=== PATIENT | female | born 2000 | race African-American/Black ===

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

== ENCOUNTER 2022-11-01 00:33 | Emergency (ER) | payer MEDICAID, SELFPAY ==
[2022-11-01 00:38] VITALS: BP 115/88; PULSE 97; RESP 20; TEMP 37.1; O2SAT 100; BMI 21.2
--- NOTE | 2022-11-01 00:51 | EDS_ITS ---
HPI HPI - Psych History of Present Illness Chief Complaint: Mental Health Narrative Narrative: Patient presents with suicidal ideations. She feels like she does not want to live although she does not have a plan at this time. She tells me there is no specific reason why this is happening she does not know any stressors in her life, she has had similar symptoms in the past and a few years ago she was admitted psychiatrically for similar symptoms. She has not done anything to harm herself at this time [facility] Medical History (Updated 11/01/22 @ 00:[address] Chung Shanks MD) Alcohol abuse Anxiety Asthma Depression Substance abuse Home Medications NK 05/21/19 [History Last Taken Unknown] Allergy/AdvReac Type Severity Reaction Status Date / Time No Known Allergies Allergy Verified 11/01/22 00:38 Social History Smoking Status: Current every day smoker tobacco type: e-cigarettes ROS ROS ED ROS Narrative Past medical history: Reviewed Medications: Reviewed Social history: Noncontributory Review of systems: General: No fever Eyes: No visual changes ENT: No upper airway congestion, normal voice Neck: No neck pain Cardiovascular: No chest pain Respiratory: No shortness of breath or cough Gastrointestinal: No abdominal pain, nausea vomiting or diarrhea Genitourinary: No dysuria Musculoskeletal: Denies myalgias no difficulty with ambulation Skin: No rash Neurological: No memory loss, confusion or any focal weakness Psych: As in HPI EXAM Physical Exam Narrative Exam Narrative: Physical exam General: She is tearful. She does not appear in any other distress Head: Normocephalic, Atraumatic Eyes: Conjunctiva not pale ENT: Moist mucous membranes Neck: Supple, Nontender, No lymphadenopathy Cardiovascular: Regular rate, Regular rhythm Respiratory: No distress, CTA bilaterally Abdomen: Soft, Nontender, Nondistended Back: Nontender, Normal Inspection. Negative for: CVA tenderness Extremities: Nontender, No edema Skin: Normal color, No rash Neurological: Alert, Normal Strength, Normal Sensation Psychological: Tearful, admits to being depressed and anxious and having suicidal ideations otherwise she is lucid and coherent and gives me a good history. No psychosis. Const Vital Signs: 11/01/22 00:38 Temperature 98.8 F Temperature Source Temporal Pulse Rate 97 Respiratory Rate 20 H Blood Pressure 115/88 H Blood Pressure Mean 97 Pulse Ox 100 Oxygen Delivery Method Room Air MDM MDM MDM Narrative Medical decision making narrative: Patient is actively suicidal. She will need psychiatric placement. I will medically clear her. Otherwise she will be evaluated by crisis for psychiatric admission. Discharge Plan Triage Chief Complaint: Mental Health ED Provider: Chung Shanks Dx/Rx/DC Orders Clinical Impression: Anxiety, Depression, Feeling suicidal Prescriptions: No Action NK Primary Care Provider: Sofía Sainz Referrals: Sofía Sainz MD [Primary Care Provider] - Disposition Disposition: Psychiatric Hospital or Unit
[2022-11-01 01:11] LABS: Absolute Lymphocyte Count 3.04 X10^3/uL (0.83-4.51); Absolute Neutrophil Count 8.1 X10^3/uL (2.0-7.7); Basophil# 0.12 X10^3/uL; Eosinophil# 0.46 X10^3/uL; Eosinophils% 3.7 % (0-5); Hematocrit 40.6 % (37-47); Hemoglobin 13.5 g/dL (12.0-15.0); Lymphocyte # 3.04 X10^3/ul (0.83-4.51); Lymphocyte % 24.2 % (19-41); Mean Corp Hgb Conc 33.3 g/dL (32-36); Mean Corpuscular Hgb 28.8 pg (27.0-32.0); Mean Corpuscular Volume 86.8 fL (81-99); Mean Platelet Vol. 9.4 fl (6.2-12.0); Monocyte% 6.4 % (0-10); NRBC Flagged by Analyzer 0 % (0-5); Neutrophil # 8.09 X10^3/uL (2.7-7.7); Neutrophil % 64.3 % (47-70); Platelet Count 316 K/mm3 (150-450); RBC Distribution Width CV 12.9 % (11.6-14.6); RBC Distribution Width SD 40.7 fl (35.1-43.9); Red Blood Count 4.68 M/mm3 (4.2-5.4); White Blood Count 12.6 K/mm3 (4.4-11.0)
[2022-11-01 01:34] VITALS: RESP 16
[2022-11-01 01:37] LABS: Internal QC Validated? YES +Cl - CLEAR BKGD; Pregnancy, Serum, hCG Quali. NEGATIVE Negative
[2022-11-01 01:44] LABS: Anion Gap 7 (5-15); BUN 8 mg/dL (7-18); BUN/Creat Ratio 10.8 RATIO (10-20); Calcium,Total 9.2 mg/dL (8.5-10.1); Chloride 105 mmol/L (98-107); Creatinine, Serum 0.74 mg/dL (0.55-1.02); EST Glomerular Filtration Rate 103 mL/min (>60); Est Glom Filt Rate - Afr Amer 125 mL/min (>60); Estimated Creatinine Clearance 102.97 ml/min; Glucose 86 mg/dL (74-106); Potassium 3.3 mmol/L (3.5-5.1); Sodium Level 137 mmol/L (136-145)
[2022-11-01 01:47] LABS: Alcohol, Blood (Medical)-Serum < 3.0 mg/dL
[2022-11-01 02:34] VITALS: RESP 14
[2022-11-01 03:00] VITALS: RESP 16
[2022-11-01 04:59] LABS: Amphetamine Urine VISTA NEGATIVE (<1000 ng/mL); Barbiturate Urine VISTA NEGATIVE (< 200 ng/mL); Benzodiazepine Urine VISTA NEGATIVE (< 200 ng/mL); Cocaine Urine VISTA POSITIVE (< 300 ng/mL); Ecstacy Urine VISTA NEGATIVE (< 500 ng/mL); Methadone Urine VISTA NEGATIVE (< 300 ng/mL); PCP Urine VISTA NEGATIVE (< 25 ng/mL); THC Urine VISTA POSITIVE (< 50 ng/mL); Vista UDS pH Range 5
[2022-11-01 05:58] VITALS: BP 107/61; PULSE 71; RESP 18; O2SAT 99
--- NOTE | 2022-11-01 09:11 | ED.RN ---
rn at bedside to administer tylenol requested by patient for headache, pt states she no longer needs it.
[2022-11-01 10:16] VITALS: BP 97/55; PULSE 63; RESP 16; O2SAT 98
--- NOTE | 2022-11-01 11:06 | ED.RN ---
PATIENT INFORMED SHE HAS BEEN ACCEPTED AT [facility] AND WILL BE TRANSPORTED AROUND 1 PM. PT REQUESTING HER MOTHER BE INFORMED. NO FURTHER REQUESTS AT THIS TIME.
--- NOTE | 2022-11-01 11:12 | CM.ED ---
Social Work SW notified by crisis of accepting information to [facility] unit by Dr. Farris. Staff notified to call report and arrange transport. Pt's nurse notified patient. Ginny Aceves ANIMAL CARE GIVER, HAMMERER
--- NOTE | 2022-11-01 11:38 | ED.RN ---
PATIENTS MOTHER CALLED. NO ANSWER. MESSAGE LEFT ON ANSWERING MACHINE FOR AN UPDATE FOR [facility]. PTS MOTHER CYNTHIA CALLED BACK. CYNTHIA UPDATED ON PSYCHIATRIC FACILITY AND ETA FOR TRANSPORT. CYNTHIA INFORMED PATIENT STILL HAS PHONE IF SHE NEEDS TO GET A HOLD OF HER.
== END 2022-11-01 13:00 ==
PROVIDERS: Emergency Provider Emergency Medicine; Visit Provider Emergency Medicine
DX: R45.851 Suicidal ideations (principal); F17.290 Nicotine dependence, other tobacco product, uncomplicated
CPT/HCPCS: 36415; 80048; 80307; 82077; 84703; 85025; 87811; 99282

== ENCOUNTER 2024-11-10 00:43 | Emergency (ER) | payer SELFPAY ==
[2024-11-10 00:44] VITALS: BP 129/78; PULSE 110; RESP 18; TEMP 36.6; O2SAT 100; BMI 22.9
[2024-11-10] MEDS: DiphenhydrAMINE 50 MG/ML Syringe 25 MG IV (01:01)
[2024-11-10] MEDS: Famotidine 200 MG/20 ML MDV 20 MG in 0.9% Normal Saline (Pres. free 8 ML 300 MG IV (01:02)
--- OUTSIDE RECORDS SUMMARY | 2024-11-10 01:21 | XMS RPT_ITS | CCD ---
Author Organization [facility] FUND ACCOUNTING MANAGER [facility] Care Team Providers Care Retail Wireless Associate Name Role Phone Timothy Enciso MD Primary Care Provider [phone] FERNIE SAAB, DR TIMOTHY Yang Primary Care Physician [phone] NOEMI HUGHES Attending Unavailable TIMOTHY ENCISO Primary Care Unavailable NOEMI HUGHES Referring Unavailable NOEMI HUGHES Attending Unavailable TIMOTHY ENCISO Primary Care Unavailable Chung Shanks Attending Unavailable Care Physician, No Primary Primary Care Unava ilable Unavailable Primary Care Provider UnavailRESHMA Higginbotham DO Attending Unavailable FERNIE SAAB, DR TIMOTHY Yang Primary Care Unavailmerrill BISHOP MD, GOLDIE Watkins Attending Unavail michael ENCISO MD, DR TIMOTHY Yang Primary Care Unavailmerrill BISHOP MD, GOLDIE Watkins Attending Unavail michael ENCISO MD, DR TIMOTHY Yang Primary Care Unavailmerrill e PHYSICIAN, NONE Primary Care Physician Unavailab le PHYSICIAN, NONE Primary Care Unavailable MARIA FERNANDA ISLAS DO Attending Unavailable BEVERLEY SALDAÑA, DR JEAN-PAUL Mejia Attending Unavailable PHYSICIAN, NONE Primary Care Unavailable Allergies Allergy Classification Reported Allergen(s) Allergy Type Date of Onset Reaction(s) Facility (5 sources) beta-Blocking agent; Translations: [BETA-BLOCKERS (BETA-ADRENERGIC BLOCKING AGTS)] Propensity to adverse reactions to drug 3 Contraindicati on-Medical Surgical [facility] Work Phone: (5 sources) Cat; Translations: [CATS] Propensity to adverse reactions 9 [facility] Work Phone: (5 sources) Dog; Translations: [DOGS] Propensity to adverse reactions 9 [facility] Work Phone: (5 sources) Grass pollen; Translations: [GRASS POLLEN] Propensity to adverse reactions 0 [facility] Work Phone: (5 sources) Mold Extract; Translations: [MOLD] Drug Allergy 0 [facility] Work Phone: (5 sources) Tree; Translations: [TREES] Propensity to adverse reactions 0 [facility] Work Phone: (4 sources) environmental [Other] Propensity to adverse reactions 9 [facility] Work Phone: (5 sources) Ragweed; Translations: [RAGWEED] Propensity to adverse reactions 0 [facility] Work Phone: (1 source) OTHER; Translations: [OTHER] Propensity to adverse reactions (disorder) 9 [facility] Repository Medications Current Medications Medication Drug Class(es) Dates Sig (Normalized) Sig (Original) albuterol MDI (90 mcg/inh) CFC free inhalation aerosol (6 sources) Start: 03-06-2024 take 2 puff(s) by inhalation every four hours as needed for wheezing albuterol MDI (90 mcg/inh) CFC free inhalation aerosol 2 puff(s), Inhalation, q4h, PRN as needed for wheezing, # 18 gram(s), 0 Refill(s) Start Date: 03/06/24 Status: Ordered Start: 04-17-2018 take 2 puff(s) by in halation every four hours as needed for wheezing albuterol MDI (90 mcg/inh) CFC free inhalation aerosol 2 puff(s), Inhalation, q4h, PRN for wheezing, # 1 EA, 0 Refill(s) Start Date: 04/17/18 Status: Ordered ARIPiprazole 5 mg oral tablet (9 sources) Atypical Antipsychotic Start: 01-30-2019 ARIPiprazole 5 mg oral tablet Dose : 5 mg = 1 tab(s), Oral, qDay, # 30 tab(s), 0 Refill(s) Start Date: 01/30/19 Status: Ordered Comment on above: Take 5 mg by mouth o nce daily. cetirizine hydrochloride 10 mg oral tablet (14 sources) Histamine-1 Receptor Antagonist Start: 09-08-2018 take 1 tablet by mouth once daily as needed cetirizine 10 mg oral tablet TAKE 1 TABLET BY MOUTH EVERY DAY NEEDED Start Date: 01/30/19 Status: Ordered Start: 12-25-[address] art Date: 12/25/16 Status: Ordered Comment on above: TAKE 1 TABLET BY ROMAN TH ONCE DAILY NEEDED. 12 hr guaiFENesin 600 mg extended release oral tablet (2 sources) Start: 03-06-2024 End: 03-13-2024 Mucinex 600 mg oral tablet, extended release Dose : 600 mg = 1 tab(s), Oral, q12h, X 7 day(s), # 14 tab(s), 0 Refill(s), 03/13/24 6:30:00 PM EST Start Date: 03/06/24 Stop Date: 03/13/24 Status: Ordered Start: 02-16-2023 End: 02-26-2023 guaiFENesin 400 mg oral tabl et Dose : 400 mg = 1 tab(s), Oral, q4h, PRN as needed for congestion, X 10 day(s), # 60 tab(s), 0 Refill(s), 02/26/23 2:06:00 PM EST Start Date: 02/16/23 Stop Date: 02/26/23 Status: Ordered hydrOXYzine pamoate 50 mg oral capsule (5 sources) Antihistamine Start: 01-30-2019 Vistaril 50 mg oral capsule Dose : 50 mg = 1 cap(s), Oral, QID, PRN as needed for anxiety, # 40 cap(s), 0 Refill(s) Start Date: 01/30/19 Status: Ordered metoclopramide 5 mg oral tablet (1 source) Dopamine-2 Receptor Antagonist Start: 02-16-2023 End: 02-23-2023 Reglan 5 mg oral tablet Dose : 5 mg = 1 tab(s), Oral, QID, X 7 day(s), # 28 tab(s), 0 Refill(s), 02/23/23 2:05:00 PM EST Start Date: 02/16/23 Stop Date: 11/15/23 Status: Ordered predniSONE 20 mg oral tablet (2 sources) Start: 03-06-2024 End: 03-09-2024 predniSONE 20 mg oral tablet Dose : 20 mg = 1 tab(s), Oral, BID, X 3 day(s), # 6 tab(s), 0 Refill(s), 03/09/24 6:39:00 PM EST Start Date: 03/06/24 Stop Date: 03/09/24 Status: Ordered Start: 12-24-2021 End: 12-29-2021 predniSONE 50 mg oral tablet Dose : 50 mg = 1 tab(s), Oral, qDayM, X 5 day(s), # 5 tab(s), 0 Refill(s), 12/29/21 0:00:00 EDT, Exacerbation of asthma Start Date: 12/24/21 Stop Date: 12/29/21 Status: Ordered traZODone hydrochloride 50 mg oral tablet (9 sources) Serotonin Reuptake Inhibitor Start: 01-30-2019 traZODone 50 mg oral tablet Dose : 50 mg = 1 tab(s), Oral, qHS, # 30 tab(s), 0 Refill(s) Start Date: 01/30/19 Status: Ordered Comment on above: TAKE 1 TABLET BY ORA L ROUTE 1 AT BEDTIME AT BEDTIME Completed/Discontinued Medications Medication Drug Class(es) Dates Sig (Normalized) Sig (Original) [id number] 200 actuat albuterol 0.09 mg/actuat metered dose inhaler (8 sources) beta2-Adrenergic Agonist Start: 04-10-2015 take 2 puff(s) by inhalation every four hours as needed albuterol HFA (VENTOLIN HFA) 90 mcg/actuation inhaler Inhale 2 Puffs as instructed every 4 hours as needed. 1 Inhaler 0 04/10/2015 Active Start: 11-12-2013 albuterol 2.5 mg /3 mL (0.083 %) nebulizer solution Use via nebulizer. One ampule nebulized every 4 hours as needed for cough, wheezing, chest tightness or shortness of breath 100 Vial 2 11/12/2013 Active Comment on above: Use via nebulizer. O ne ampule nebulized every 4 hours as needed for cough, wheezing, chest tightness or shortness of breath Inhale 2 Puffs as in structed every 4 hours as needed. etonogestrel 68 mg drug implant (4 sources) Progestin Start: 03-27-20 End: 03-26-20 etonogestrel (NEXPLANON) subdermal implant 68 mg Indications: Insertion of implantable subdermal contraceptive 1 Each by SUBDERMAL route as directed. 1 Each 0 03/27/2019 Active Comment on above: 1 Each by SUBDERMAL route as directed. 60 actuat fluticasone propionate 0.1 mg/actuat / salmeterol 0.05 mg/actuat dry powder inhaler (4 sources) Corticosteroid, beta2-Adrenergic Agonist Start: 04-18-19 19 take 1 puff(s) by mouth twice daily ADVAIR DISKUS 100-50 mcg/dose dsdv INHALE 1 PUFF INSTRUCTED TWICE DAILY. RINSE AND GARGLE MOUTH WITH WATER AFTER EACH USE. 1 Inhaler 0 04/18/2018 Active Comment on above: INHALE 1 PUFF INS TRUCTED TWICE DAILY. RINSE AND GARGLE MOUTH WITH WATER AFTER EACH USE. montelukast 10 mg oral tablet (4 sources) Leukotriene Receptor Antagonist Start: 08-16-19 take 1 tablet by mouth once daily at bedtime montelukast (SINGULAIR) 10 mg tablet TAKE 1 TABLET BY MOUTH EVERYDAY AT BEDTIME 30 tablet 1 08/15/2018 Active Comment on above: TAKE 1 TABLET BY ROMAN TH EVERYDAY AT BEDTIME polyethylene glycol 3350 81195 mg powder for oral solution (4 sources) Osmotic Laxative Start: 12-31-19 polyethylene glycol 3350 (MIRALAX) 17 gram/dose powder Take 17 g by mouth once daily. 1 Bottle 1 12/30/2016 Active Comment on above: Take 17 g by mouth o nce daily. Problems Active Problems Problem Classification Problem Date Documented Date Episodic/Chronic Allergic reactions (4 sources) Atopic dermatitis; Translations: [Other atopic dermatitis] Onset: 12-18-2009 12-18-2009 Chronic Anxiety disorders (5 sources) Generalized anxiety disorder; Translations: [Generalized anxiety disorder] Onset: 12-22-2021 12-22-2021 Chronic Asthma (5 sources) Allergic asthma; Translations: [Unspecified asthma, uncomplicated] Onset: 12-18-2009 12-18-2009 Chronic Immunizations and screening for infectious disease (2 sources) Patient encounter status; Translations: [Encounter for screening for infections with a predominantly sexual mode of transmission] Onset: 12-30-2022 Episodic Mood disorders (6 sources) Depressive disorder; Translations: [Depression, unspecified depression type] Onset: 12-22-2021 Chronic Other and delivery including normal (3 sources) ; Translations: [ state, incidental] Onset: 01-31-2023 Episodic Comment on above: System added from do cum. Status documented as Yes on Admission Other screening for suspected conditions (not mental disorders or infectious disease) (1 source) Cancer cervix screening status; Translations: [Encounter for screening for malignant neoplasm of cervix] Episodic Other upper respiratory disease (4 sources) Allergic rhinitis; Translations: [Allergic rhinitis, unspecified] Onset: 12-18-2009 12-18-2009 Chronic Other upper respiratory infections (1 source) Acute upper respiratory infection; Translations: [Acute upper respiratory infection, unspecified] Onset: 03-06-2024 Episodic Suicide and intentional self-inflicted injury (2 sources) Feeling suicidal; Translations: [Suicidal ideations] Onset: 11-08-2022 11-01-2022 Episodic Viral infection (1 source) Viral disease; Translations: [Other viral agents as the cause of diseases classified elsewhere] Onset: 02-16-2023 Episodic Past or Other Problems Problem Classification Problem Date Documented Da te Episodic/Chronic Cancer of cervix (2 sources) Atypical squamous cells of undetermined significance on cervical Papanicolaou smear; Translations: [Atypical squamous cells of undetermined significance on cytologic smear of cervix (ASC-US)] Onset: 01-12-2022 01-12-2022 Episodic Results Test Name Value Interpretation Reference Range Facil ity .Auto Diffon 02-16-2023 Basophil, Absolute 0.1 10 3/mcL Normal 0.0-0.2 [facility] ([place]) Comment on above: Performed By: #### B NATALIE MARIN, GFR, ANEU, ADIFF, CBC #### [address] [address] Basophils/100 WBC (Bld) 0.4 % Normal 0.0-2.5 [facility] ([place]) Comment on above: Performed By: #### B NATALIE MARIN, GFR, ANEU, ADIFF, CBC #### [address] [address] Eosinophil, Absolute 0.9 10 3/mcL High 0.0-0.4 [facility] ([place]) Comment on above: Performed By: #### B NATALIE MARIN, GFR, ANEU, ADIFF, CBC #### [address] [address] Eosinophils/100 WBC (Bld) 4.4 % Normal 0.0-7.0 [facility] ([place]) Comment on above: Performed By: #### B NATALIE MARIN, GFR, ANEU, ADIFF, CBC #### [address] [address] Lymphocyte, Absolute 1.7 10 3/mcL Normal 0.8-3.9 [facility] ([place]) Comment on above: Performed By: #### B NATALIE MARIN, GFR, ANEU, ADIFF, CBC #### [address] [address] Lymphocytes/100 WBC (Bld) 8.5 % Low 10.0-50.0 [facility] ([place]) Comment on above: Performed By: #### B NATALIE MARIN, GFR, ANEU, ADIFF, CBC #### [address] [address] Monocyte, Absolute 1.6 10 3/mcL High 0.2-1.0 [facility] ([place]) Comment on above: Performed By: #### B NATALIE MARIN, GFR, ANEU, ADIFF, CBC #### [address] [address] Monocytes/100 WBC (Bld) 8.3 % Normal 1.7-13.0 [facility] ([place]) Comment on above: Performed By: #### B NATALIE MARIN, GFR, ANEU, ADIFF, CBC #### [address] [address] Neutrophils/100 WBC (Bld) 78.4 % Normal 37.0-80.0 [facility] ([place]) Comment on above: Performed By: #### B NATALIE MARIN, GFR, ANEU, ADIFF, CBC #### [address] [address] .GFRon 02-16-2023 GFR 143 ml/min/1.73sqm Normal [facility] ([place]) Comment on above: Result Comment: GFR Population mean for , Non- Americans Ages 20-29 = 116 mL/min/1.73 sq.m. Ages 30-39 = 107 mL/min/1.73 sq.m. Ages 40-49 = 99 mL/min/1.73 sq.m. Ages 50-59 = 93 mL/min/1.73 sq.m. Ages 60-69 = 85 mL/min/1.73 sq.m. Ages 70+ = 75 mL/min/1.73 sq.m. Chronic Kidney Disease: Less than 60 mL/min/1.73 square meters End Stage Renal Disease: Less than 15 mL/min/1.73 square meters Performed By: #### U AFRANCISCO #### [address] [address] GFR Non- 118 ml/min/1.73sqm Normal [facility] ([place]) Comment on above: Result Comment: GFR Population mean for , Non- Americans Ages 20-29 = 116 mL/min/1.73 sq.m. Ages 30-39 = 107 mL/min/1.73 sq.m. Ages 40-49 = 99 mL/min/1.73 sq.m. Ages 50-59 = 93 mL/min/1.73 sq.m. Ages 60-69 = 85 mL/min/1.73 sq.m. Ages 70+ = 75 mL/min/1.73 sq.m. Chronic Kidney Disease: Less than 60 mL/min/1.73 square meters End Stage Renal Disease: Less than 15 mL/min/1.73 square meters Performed By: #### U A, UAMICAO #### [address] [address] .MDWon 02-16-2023 Monocyte Distribution Width 17.28 Normal 0.00-20.00 [facility] ([place]) Comment on above: Result Comment: For ED adult patients suspected of sepsis, MDW<=20.0 does not rule out sepsis or risk of sepsis Performed By: #### B NATALIE MARIN, GFR, ANEU, ADIFF, CBC #### [place] [address] .NEUABSon 02-16-2023 Neutrophil, Absolute 15.5 10 3/mcL High 2.9-6.2 A [facility] ([place]) Comment on above: Performed By: #### B NATALIE MARIN, GFR, ANEU, ADIFF, CBC #### [place] [address] .Urinalysis Microscopic (AO) on 02-16-2023 UA Amorphus 2+ /hpf Normal [facility] ([place]) Comment on above: Performed By: #### U A, UAMICAO #### [place] [address] UA Bacteria 1+ /hpf Abnormal [facility] ([place]) Comment on above: Performed By: #### U A, UAMICAO #### [place] [address] UA RBC None Seen Normal None Seen [facility] ([place]) Comment on above: Performed By: #### U A, UAMICAO #### [place] [address] UA Squam Epithelial 10-15 Abnormal None Seen [facility] ([place]) Comment on above: Performed By: #### U A, UAMICAO #### [place] [address] UA WBC 5-10 Abnormal None Seen [facility] ([place]) Comment on above: Performed By: #### U A, UAMICAO #### [place] [address] BMPon 02-16-2023 BUN/Creatinine Ratio 8 ratio Normal 7-27 [facility] ([place]) Comment on above: Performed By: #### U A, UAMICAO #### [place] [address] Calcium [Mass/Vol] 9.3 mg/dL Normal 8.4-10.2 [facility] ([place]) Comment on above: Performed By: #### U A UAMICAO #### [address] [address] Chloride [Moles/Vol] 97 mmol/L Low 98-107 [facility] ([place]) Comment on above: Performed By: #### U A UAMICAO #### [address] [address] CO2 [Moles/Vol] 25 mmol/L Normal 22-29 [facility] ([place]) Comment on above: Performed By: #### U A UAMICAO #### [address] [address] Creatinine [Mass/Vol] 0.63 mg/dL Normal 0.55-1.02 [facility] ([place]) Comment on above: Performed By: #### U Norah UAMICAO #### [address] [address] Electrolyte Balance 13.0 mEq/L Normal 4.0-15.0 [facility] ([place]) Comment on above: Performed By: #### U Norah UAMICAO #### [address] [address] Glucose [Mass/Vol] 94 mg/dL Normal 70-105 [facility] ([place]) Comment on above: Performed By: #### U Norah UAMICAO #### [address] [address] Potassium [Moles/Vol] 3.7 mmol/L Normal 3.5-5.1 [facility] ([place]) Comment on above: Performed By: #### U A UAMICAO #### [address] [address] Sodium [Moles/Vol] 135 mmol/L Low 136-145 [facility] ([place]) Comment on above: Performed By: #### U A UAMICAO #### [address] [address] Urea nitrogen [Mass/Vol] 5 mg/dL Low 7-18 [facility] ([place]) Comment on above: Performed By: #### FRANCISCO Hightower #### [address] [address] CBCon 02-16-2023 Erythrocyte distribution width (RBC) [Ratio] 13.1 % Normal 11.5-14.5 [facility] ([place]) Comment on above: Performed By: #### B NATALIE MARIN, GFR, ANEU, ADIFF, CBC #### [place] [id number] Hematocrit (Bld) [Volume fraction] 39.7 % Normal 37.0-47.0 [facility] ([place]) Comment on above: Performed By: #### B NATALIE MARIN, GFR, ANEU, ADIFF, CBC #### [place] [id number] Hgb 13.2 G/dL Normal 12.0-16.0 [facility] ([place]) Comment on above: Performed By: #### B NATALIE MARIN, GFR, ANEU, ADIFF, CBC #### [address] [address] MCH (RBC) [Entitic mass] 28.8 pg Normal 27.0-31.2 [facility] ([place]) Comment on above: Performed By: #### B NATALIE MARIN, GFR, ANEU, ADIFF, CBC #### [place] [address] MCHC 33.2 G/dL Normal 33.0-37.0 [facility] ([place]) Comment on above: Performed By: #### B NATALIE MARIN, GFR, ANEU, ADIFF, CBC #### [place] [address] MCV (RBC) [Entitic vol] 86.8 fL Normal 80.0-94.0 [facility] ([place]) Comment on above: Performed By: #### B NATALIE MARIN, GFR, ANEU, ADIFF, CBC #### [place] [id number] Platelet 378 10 3/mcL Normal 130-400 [facility] ([place]) Comment on above: Performed By: #### B NATALIE MARIN, GFR, ANEU, ADIFF, CBC #### [address] [address] Platelet mean volume (Bld) [Entitic vol] 7.9 fL Normal 7.4-10.4 [facility] ([place]) Comment on above: Performed By: #### B NATALIE MARIN, GFR, ANEU, ADIFF, CBC #### [address] [address] RBC 4.57 10 6/mcL Normal 4.20-5.40 [facility] ([place]) Comment on above: Performed By: #### B NATALIE MARIN, GFR, ANEU, ADIFF, CBC #### [address] [address] WBC 19.8 10 3/mcL High 4.6-10.8 [facility] ([place]) Comment on above: Performed By: #### B NATALIE MARIN, GFR, ANEU, ADIFF, CBC #### [address] [address] [id number] 02-16-2023 SARS-CoV-2 (COVID-19) RNA MAIKOL+probe Ql (Unsp spec) Negative Normal Negative [facility] ([place]) Comment on above: Performed By: #### FRANCISCO Hightower #### [address] [address] SARS-CoV-2 (COVID-19) RNA MAIKOL+probe Ql (Unsp spec) Normal [facility] ([place]) Comment on above: Result Comment: Nega tive results do not preclude SARS-CoV-2 infection and should not be used as the sole basis for patient management decisions. Negative results must be combined with clinical observations, patient history, and epidemiological information. There is a risk of false negative values resulting from improperly collected, transported, or handled specimens. There is a risk of false negative values due to the presence of sequence variants in the pathogen targets of the assay, procedural errors, amplification inhibitors in specimens, or inadequate numbers of organisms for amplification. SHAJI SARS-CoV-2 Assay is a Real-Time reverse-transcriptase polymerase chain reaction (RT-PCR) based qualitative in vitro diagnostic test intended for the qualitative detection of nucleic acid from the SARS-CoV-2 in nasopharyngeal swab specimens collected from individuals suspected of COVID-19 by their healthcare provider. Testing is limited to laboratories certified under the Clinical Laboratory Improvement Amendments of 1988 (CLIA), 42 U.S.C. ?263a, to perform moderate and high complexity tests. COVID-19 Int Performed By: #### U A, FRANCISCO #### [place] [id number] [place], [place] [address] FLURSVon 02-16-2023 Flu A PCR (AO) Negative Normal Negative [facility] ([place]) Comment on above: Result Comment: Posi tive Results: Positive Flu A/B or RSV for by PCR. Positive test results do not rule out bacterial infection or co-infection with other pathogens. Test results should be interpreted in conjunction with other laboratory and clinical data. Negative Results: Negative for by PCR. Negative test results do not preclude influenza virus or RSV infection and should not be used as the sole basis for diagnosis, treatment, or other management decisions. There is a risk of false negative RSV results when at low concentration and in the presence of co-infection with high concentration of influenza A. Invalid Results: An Invalid result (INV) was obtained. The test was repeated with similar results. REPEAT COLLECTION AND TESTING IS RECOMMENDED. The Know[employer] Flu A/B & RSV Assay is a real-time polymerase chain reaction (PCR) based qualitative in vitro diagnostic test for the direct detection and differentiation of influenza A virus, influenza B virus, and respiratory syncytial virus (RSV) nucleic acid in nasopharyngeal swab (MARKETING CAMPAIGN ANALYST) specimens from patients with signs and symptoms of respiratory infection in conjunction with clinical and laboratory findings. The test is intended for use as an aid in the differential diagnosis of influenza A virus, influenza B virus, and RSV in humans and is not intended to detect influenza C. Performed By: #### U A, FRANCISCO #### [address] [id number] [place], [place] [address] Flu B PCR (AO) Negative Normal Negative [facility] ([place]) Comment on above: Result Comment: Posi tive Results: Positive Flu A/B or RSV for by PCR. Positive test results do not rule out bacterial infection or co-infection with other pathogens. Test results should be interpreted in conjunction with other laboratory and clinical data. Negative Results: Negative for by PCR. Negative test results do not preclude influenza virus or RSV infection and should not be used as the sole basis for diagnosis, treatment, or other management decisions. There is a risk of false negative RSV results when at low concentration and in the presence of co-infection with high concentration of influenza A. Invalid Results: An Invalid result (INV) was obtained. The test was repeated with similar results. REPEAT COLLECTION AND TESTING IS RECOMMENDED. The Shaji Flu A/B & RSV Assay is a real-time polymerase chain reaction (PCR) based qualitative in vitro diagnostic test for the direct detection and differentiation of influenza A virus, influenza B virus, and respiratory syncytial virus (RSV) nucleic acid in nasopharyngeal swab (MARKETING CAMPAIGN ANALYST) specimens from patients with signs and symptoms of respiratory infection in conjunction with clinical and laboratory findings. The test is intended for use as an aid in the differential diagnosis of influenza A virus, influenza B virus, and RSV in humans and is not intended to detect influenza C. Performed By: #### U A, UAMICAO #### [address] [address] RSV PCR (AO) Negative Normal Negative [facility] ([place]) Comment on above: Result Comment: Posi tive Results: Positive Flu A/B or RSV for by PCR. Positive test results do not rule out bacterial infection or co-infection with other pathogens. Test results should be interpreted in conjunction with other laboratory and clinical data. Negative Results: Negative for by PCR. Negative test results do not preclude influenza virus or RSV infection and should not be used as the sole basis for diagnosis, treatment, or other management decisions. There is a risk of false negative RSV results when at low concentration and in the presence of co-infection with high concentration of influenza A. Invalid Results: An Invalid result (INV) was obtained. The test was repeated with similar results. REPEAT COLLECTION AND TESTING IS RECOMMENDED. The [employer] Flu A/B & RSV Assay is a real-time polymerase chain reaction (PCR) based qualitative in vitro diagnostic test for the direct detection and differentiation of influenza A virus, influenza B virus, and respiratory syncytial virus (RSV) nucleic acid in nasopharyngeal swab (MARKETING CAMPAIGN ANALYST) specimens from patients with signs and symptoms of respiratory infection in conjunction with clinical and laboratory findings. The test is intended for use as an aid in the differential diagnosis of influenza A virus, influenza B virus, and RSV in humans and is not intended to detect influenza C. Performed By: #### U Norah UAMICMARTHA #### [facility] [place] [address] [place], [place] [address] LABORATORYOrdered By: Reena Bains on 02-16-2023 Appearance (U) Clear (02/16/23 1:12 PM) Invalid Interpretation Code Clear AO Auto Urine SS Bacteria LM.HPF (Urine sed) [#/Area] 1 /[HPF] Invalid Interpretation Code AO Auto Urine SS Bilirubin Ql (U) Negative (02/16/23 1:12 PM) Invalid Interpretation Code Negative AO Auto Urine SS Color (U) Yellow (02/16/23 1:12 PM) Invalid Interpretation Code AO Auto Urine SS Crystals.amorphous LM.HPF (Urine sed) [#/Area] 2 /[HPF] Invalid Interpretation Code AO Auto Urine SS Glucose Test strip (U) [Mass/Vol] Negative Invalid Interpretation Code Negative AO Auto Urine SS Hemoglobin Auto test strip (U) [Mass/Vol] Negative (02/16/23 1:12 PM) Invalid Interpretation Code Negative AO Auto Urine SS Ketones Ql (U) 40 mg/dL Invalid Interpretation Code Negative AO Auto Urine SS UA Leuk Est Negative (02/16/23 1:12 PM) Invalid Interpretation Code Negative AO Auto Urine SS UA Nitrite Negative (02/16/23 1:12 PM) Invalid Interpretation Code Negative AO Auto Urine SS UA pH 6.0 (02/16/23 1:12 PM) Invalid Interpretation Code 5.0 - 8.0 AO Auto Urine SS UA Protein 30 mg/dL Invalid Interpretation Code Negative AO Auto Urine SS UA RBC None Seen /HPF Invalid Interpretation Code None Seen AO Auto Urine SS UA Spec Grav >=1.030 *ABN* (02/16/23 1:12 PM) Invalid Interpretation Code 1.015-1.025 AO Auto Urine SS UA Specimen Type Clean Catch (02/16/23 1:12 PM) Invalid Interpretation Code AO Auto Urine SS UA Squam Epithelial 10-15 /HPF Invalid Interpretation Code None Seen AO Auto Urine SS UA Urobilinogen 0.2 E.U./dL Invalid Interpretation Code 0.2-1.0 AO Auto Urine SS WBC LM.HPF (Urine sed) [#/Area] 5-10 /HPF Invalid Interpretation Code None Seen AO Auto Urine SS LABORATORYOrdered By: SYSTEM SYSTEM on 02-16-2023 Basophil, Absolute 0.1 103/mcL Invalid Interpretation Code 0.0 - 0.2 10^3/mcL AO Workflow SS Basophils/100 WBC (Bld) 0.4 % Invalid Interpretation Code 0.0 - 2.5 % AO Workflow SS Calcium [Mass/Vol] 9.3 mg/dL Invalid Interpretation Code 8.4 - 10.2 mg/dL AO ADM SS Chloride [Moles/Vol] 97 mmol/L Invalid Interpretation Code 98 - 107 mmol/L AO ADM SS CO2 [Moles/Vol] 25 mmol/L Invalid Interpretation Code 22 - 29 mmol/L AO ADM SS Creatinine [Mass/Vol] 0.63 mg/dL Invalid Interpretation Code 0.55 - 1.02 mg/dL AO ADM SS Electrolyte Balance 13.0 mEq/L Invalid Interpretation Code 4.0 - 15.0 mEq/L AO ADM SS Eosinophil, Absolute 0.9 103/mcL Invalid Interpretation Code 0.0 - 0.4 10^3/mcL AO Workflow SS Eosinophils/100 WBC (Bld) 4.4 % Invalid Interpretation Code 0.0 - 7.0 % AO Workflow SS Erythrocyte distribution width (RBC) [Ratio] 13.1 % Invalid Interpretation Code 11.5 - 14.5 % AO Workflow SS GFR/1.73 sq M.predicted among blacks MDRD (S/P/Bld) [Vol rate/Area] 143 ml/min/1.73sqm Invalid Interpretation Code AO Chemistry S Comment on above: Interpretive Data: GFR Population mean for , Non- Americans Ages 20-29 = 116 mL/min/1.73 sq.m. Ages 30-39 = 107 mL/min/1.73 sq.m. Ages 40-49 = 99 mL/min/1.73 sq.m. Ages 50-59 = 93 mL/min/1.73 sq.m. Ages 60-69 = 85 mL/min/1.73 sq.m. Ages 70+ = 75 mL/min/1.73 sq.m. Chronic Kidney Disease: Less than 60 mL/min/1.73 square meters End Stage Renal Disease: Less than 15 mL/min/1.73 square meters GFR/1.73 sq M.predicted among non-blacks MDRD (S/P/Bld) [Vol rate/Area] 118 ml/min/1.73sqm Invalid Interpretation Code AO Chemistry S Comment on above: Interpretive Data: GFR Population mean for , Non- Americans Ages 20-29 = 116 mL/min/1.73 sq.m. Ages 30-39 = 107 mL/min/1.73 sq.m. Ages 40-49 = 99 mL/min/1.73 sq.m. Ages 50-59 = 93 mL/min/1.73 sq.m. Ages 60-69 = 85 mL/min/1.73 sq.m. Ages 70+ = 75 mL/min/1.73 sq.m. Chronic Kidney Disease: Less than 60 mL/min/1.73 square meters End Stage Renal Disease: Less than 15 mL/min/1.73 square meters Glucose [Mass/Vol] 94 mg/dL Invalid Interpretation Code 70 - 105 mg/dL AO ADM SS Hematocrit (Bld) [Volume fraction] 39.7 % Invalid Interpretation Code 37.0 - 47.0 % AO Workflow SS Hemoglobin (Bld) [Mass/Vol] 13.2 G/dL Invalid Interpretation Code 12.0 - 16.0 G/dL AO Workflow SS Lymphocyte, Absolute 1.7 103/mcL Invalid Interpretation Code 0.8 - 3.9 10^3/mcL AO Workflow SS Lymphocytes/100 WBC (Bld) 8.5 % Invalid Interpretation Code 10.0 - 50.0 % AO Workflow SS MCH (RBC) [Entitic mass] 28.8 pg Invalid Interpretation Code 27.0 - 31.2 pg AO Workflow SS MCHC 33.2 G/dL Invalid Interpretation Code 33.0 - 37.0 G/dL AO Workflow SS MCV (RBC) [Entitic vol] 86.8 fL Invalid Interpretation Code 80.0 - 94.0 fL AO Workflow SS Monocyte distribution width Auto (Bld) [Entitic vol] 17.28 1 Invalid Interpretation Code 0.00 - 20.00 AO Workflow SS Comment on above: Result Comment: For ED adult patients suspected of sepsis, MDW<=20.0 does not rule out sepsis or risk of sepsis Monocyte, Absolute 1.6 103/mcL Invalid Interpretation Code 0.2 - 1.0 10^3/mcL AO Workflow SS Monocytes/100 WBC (Bld) 8.3 % Invalid Interpretation Code 1.7 - 13.0 % AO Workflow SS Neutrophil, Absolute 15.5 103/mcL Invalid Interpretation Code 2.9 - 6.2 10^3/mcL AO Workflow SS Neutrophils/100 WBC (Bld) 78.4 % Invalid Interpretation Code 37.0 - 80.0 % AO Workflow SS Platelet mean volume (Bld) [Entitic vol] 7.9 fL Invalid Interpretation Code 7.4 - 10.4 fL AO Workflow SS Platelets (Bld) [#/Vol] 378 103/mcL Invalid Interpretation Code 130 - 400 10^3/mcL AO Workflow SS Potassium [Moles/Vol] 3.7 mmol/L Invalid Interpretation Code 3.5 - 5.1 mmol/L AO ADM SS RBC (Bld) [#/Vol] 4.57 106/mcL Invalid Interpretation Code 4.20 - 5.40 10^6/mcL AO Workflow SS Sodium [Moles/Vol] 135 mmol/L Invalid Interpretation Code 136 - 145 mmol/L AO ADM SS Urea nitrogen [Mass/Vol] 5 mg/dL Invalid Interpretation Code 7 - 18 mg/dL AO ADM SS Urea nitrogen/Creatinine [Mass ratio] 8 ratio Invalid Interpretation Code 7 - 27 ratio AO ADM SS WBC (Bld) [#/Vol] 19.8 103/mcL Invalid Interpretation Code 4.6 - 10.8 10^3/mcL AO Workflow SS LABORATORYOrdered By: Emily Colon on 02-16-2023 FLUAV RNA MAIKOL+probe Ql (Upper resp) Negative 4 (02/16/23 1:12 PM) Invalid Interpretation Code Negative AO Auto Urine SS Comment on above: Interpretive Data: P ositive Results: Positive Flu A/B or RSV for by PCR. Positive test results do not rule out bacterial infection or co-infection with other pathogens. Test results should be interpreted in conjunction with other laboratory and clinical data. Negative Results: Negative for by PCR. Negative test results do not preclude influenza virus or RSV infection and should not be used as the sole basis for diagnosis, treatment, or other management decisions. There is a risk of false negative RSV results when at low concentration and in the presence of co-infection with high concentration of influenza A. Invalid Results: An Invalid result (INV) was obtained. The test was repeated with similar results. REPEAT COLLECTION AND TESTING IS RECOMMENDED. The [employer] Flu A/B & RSV Assay is a real-time polymerase chain reaction (PCR) based qualitative in vitro diagnostic test for the direct detection and differentiation of influenza A virus, influenza B virus, and respiratory syncytial virus (RSV) nucleic acid in nasopharyngeal swab (MARKETING CAMPAIGN ANALYST) specimens from patients with signs and symptoms of respiratory infection in conjunction with clinical and laboratory findings. The test is intended for use as an aid in the differential diagnosis of influenza A virus, influenza B virus, and RSV in humans and is not intended to detect influenza C. FLUBV RNA MAIKOL+probe Ql (Upper resp) Negative 5 (02/16/23 1:12 PM) Invalid Interpretation Code Negative AO Auto Urine SS Comment on above: Interpretive Data: P ositive Results: Positive Flu A/B or RSV for by PCR. Positive test results do not rule out bacterial infection or co-infection with other pathogens. Test results should be interpreted in conjunction with other laboratory and clinical data. Negative Results: Negative for by PCR. Negative test results do not preclude influenza virus or RSV infection and should not be used as the sole basis for diagnosis, treatment, or other management decisions. There is a risk of false negative RSV results when at low concentration and in the presence of co-infection with high concentration of influenza A. Invalid Results: An Invalid result (INV) was obtained. The test was repeated with similar results. REPEAT COLLECTION AND TESTING IS RECOMMENDED. The [employer] Flu A/B & RSV Assay is a real-time polymerase chain reaction (PCR) based qualitative in vitro diagnostic test for the direct detection and differentiation of influenza A virus, influenza B virus, and respiratory syncytial virus (RSV) nucleic acid in nasopharyngeal swab (MARKETING CAMPAIGN ANALYST) specimens from patients with signs and symptoms of respiratory infection in conjunction with clinical and laboratory findings. The test is intended for use as an aid in the differential diagnosis of influenza A virus, influenza B virus, and RSV in humans and is not intended to detect influenza C. RSV RNA MAIKOL+probe Ql (Upper resp) Negative 6 (02/16/23 1:12 PM) Invalid Interpretation Code Negative AO Auto Urine SS Comment on above: Interpretive Data: P ositive Results: Positive Flu A/B or RSV for by PCR. Positive test results do not rule out bacterial infection or co-infection with other pathogens. Test results should be interpreted in conjunction with other laboratory and clinical data. Negative Results: Negative for by PCR. Negative test results do not preclude influenza virus or RSV infection and should not be used as the sole basis for diagnosis, treatment, or other management decisions. There is a risk of false negative RSV results when at low concentration and in the presence of co-infection with high concentration of influenza A. Invalid Results: An Invalid result (INV) was obtained. The test was repeated with similar results. REPEAT COLLECTION AND TESTING IS RECOMMENDED. The [employer] Flu A/B & RSV Assay is a real-time polymerase chain reaction (PCR) based qualitative in vitro diagnostic test for the direct detection and differentiation of influenza A virus, influenza B virus, and respiratory syncytial virus (RSV) nucleic acid in nasopharyngeal swab (MARKETING CAMPAIGN ANALYST) specimens from patients with signs and symptoms of respiratory infection in conjunction with clinical and laboratory findings. The test is intended for use as an aid in the differential diagnosis of influenza A virus, influenza B virus, and RSV in humans and is not intended to detect influenza C. SARS-CoV-2 (COVID-19) RNA MAIKOL+probe Ql (Resp) Negative results do not preclude SARS-CoV-2 infection and should not be used as the sole basis for patient management decisions. Negative results must be combined with clinical observations, patient history, and epidemiological information.There is a risk of false negative values resulting from improperly collected, transported, or handled specimens.There is a risk of false negative values due to the presence of sequence variants in the pathogen targets of the assay, procedural errors, amplification inhibitors in specimens, or inadequate numbers of organisms for amplification.SHAJI SARS-CoV-2 Assay is a Real-Time reverse-transcriptase polymerase chain reaction (RT-PCR) based qualitative in vitro diagnostic test intended for the qualitative detection of nucleic acid from the SARS-CoV-2 in nasopharyngeal swab specimens collected from individuals suspected of COVID-19 by their healthcare provider. Testing is limited to laboratories certified under the Clinical Laboratory Improvement Amendments of 1988 (CLIA), 42 U.S.C. 263a, to perform moderate and high complexity tests. Invalid Interpretation Code AO Auto Urine SS UAon 02-16-2023 Color (U) Yellow Normal [facility] ([place]) Comment on above: Performed By: #### U ANICOLASMICMARTHA #### [address] [address] Glucose (U) [Mass/Vol] Negative Normal Negative [facility] ([place]) Comment on above: Performed By: #### U A, UAMICAO #### [place] [address] Ketones Ql (U) 40 mg/dL Abnormal Negative [facility] ([place]) Comment on above: Performed By: #### U A, UAMICAO #### [place] [address] UA Appear Clear Normal Clear [facility] ([place]) Comment on above: Performed By: #### U A, UAMICAO #### [place] [address] UA Blood Negative Normal Negative [facility] ([place]) Comment on above: Performed By: #### U A, UAMICAO #### [place] [address] UA Leuk Est Negative Normal Negative [facility] ([place]) Comment on above: Performed By: #### U A, UAMICAO #### [place] [address] UA Nitrite Negative Normal Negative [facility] ([place]) Comment on above: Performed By: #### U A, UAMICAO #### [place] [address] UA pH 6.0 Normal 5.0 - 8.0 [facility] ([place]) Comment on above: Performed By: #### U A, UAMICAO #### [place] [address] UA Protein 30 mg/dL Normal Negative [facility] ([place]) Comment on above: Performed By: #### U A, UAMICAO #### [address] [address] UA Spec Grav >=1.030 Abnormal 1.015-1.025 [facility] ([place]) Comment on above: Performed By: #### U A, UAMICAO #### [place] [address] UA Specimen Type Clean Catch Normal [facility] ([place]) Comment on above: Performed By: #### U A, UAMICAO #### [address] [address] UA Urobilinogen 0.2 E.U./dL Normal 0.2-1.0 [facility] ([place]) Comment on above: Performed By: #### U A, UAMICAO #### [address] [address] Urobilinogen (U) [Mass/Vol] Negative Normal Negative [facility] ([place]) Comment on above: Performed By: #### U A, UAMICAO #### [address] [address] .Urinalysis Microscopic (AO) on 01-31-2023 UA Amorphus 2+ /hpf Normal [facility] ([place]) Comment on above: Performed By: #### U A, UAMICAO #### [place] [address] UA Bacteria 2+ /hpf Abnormal [facility] ([place]) Comment on above: Performed By: #### U A, UAMICAO #### [address] [address] UA RBC 0-5 Abnormal None Seen [facility] ([place]) Comment on above: Performed By: #### U A, UAMICAO #### [address] [address] UA Squam Epithelial LOADED Abnormal None Seen [facility] ([place]) Comment on above: Performed By: #### U A, UAMICAO #### [place] [id number] UA WBC 0-5 Abnormal None Seen [facility] ([place]) Comment on above: Performed By: #### U A, UAMICAO #### [place] [id number] LABORATORYOrdered By: Elsy Wright on 01-31-2023 Appearance (U) Slightly Cloudy *ABN* (01/31/23 11:50 AM) Invalid Interpretation Code Clear AO Auto Urine SS Bacteria LM.HPF (Urine sed) [#/Area] 2 /[HPF] Invalid Interpretation Code AO Auto Urine SS Bilirubin Ql (U) Negative (01/31/23 11:50 AM) Invalid Interpretation Code Negative AO Auto Urine SS Color (U) Yellow (01/31/23 11:50 AM) Invalid Interpretation Code AO Auto Urine SS Crystals.amorphous LM.HPF (Urine sed) [#/Area] 2 /[HPF] Invalid Interpretation Code AO Auto Urine SS Glucose Test strip (U) [Mass/Vol] Negative Invalid Interpretation Code Negative AO Auto Urine SS HCG ( test) Ql Positive (01/31/23 11:50 AM) Invalid Interpretation Code AO Manual Urine SS Hemoglobin Auto test strip (U) [Mass/Vol] Negative (01/31/23 11:50 AM) Invalid Interpretation Code Negative AO Auto Urine SS Ketones Ql (U) 15 mg/dL Invalid Interpretation Code Negative AO Auto Urine SS test (u) int Detected Invalid Interpretation Code AO Manual Urine SS UA Leuk Est Negative (01/31/23 11:50 AM) Invalid Interpretation Code Negative AO Auto Urine SS UA Nitrite Negative (01/31/23 11:50 AM) Invalid Interpretation Code Negative AO Auto Urine SS UA pH 8.0 (01/31/23 11:50 AM) Invalid Interpretation Code 5.0 - 8.0 AO Auto Urine SS UA Protein Negative Invalid Interpretation Code Negative AO Auto Urine SS UA RBC 0-5 /HPF Invalid Interpretation Code None Seen AO Auto Urine SS UA Spec Grav 1.020 (01/31/23 11:50 AM) Invalid Interpretation Code 1.015-1.025 AO Auto Urine SS UA Specimen Type Clean Catch (01/31/23 11:50 AM) Invalid Interpretation Code AO Auto Urine SS UA Squam Epithelial LOADED /HPF Invalid Interpretation Code None Seen AO Auto Urine SS UA Urobilinogen 0.2 E.U./dL Invalid Interpretation Code 0.2-1.0 AO Auto Urine SS WBC LM.HPF (Urine sed) [#/Area] 0-5 /HPF Invalid Interpretation Code None Seen AO Auto Urine SS PREGUon 01-31-2023 HCG ( test) Ql (U) Positive Normal [facility] ([place]) Comment on above: Performed By: #### U A, UAMICAO #### [place] [id number] test (u) int Detected Invalid Interpretation Code [facility] ([place]) Comment on above: Performed By: #### U A, UAMICAO #### [place] [address] UAon 01-31-2023 Color (U) Yellow Normal [facility] ([place]) Comment on above: Performed By: #### U A, UAMICAO #### [place] [address] Glucose (U) [Mass/Vol] Negative Normal Negative [facility] ([place]) Comment on above: Performed By: #### U A, UAMICAO #### [place] [address] Ketones Ql (U) 15 mg/dL Abnormal Negative [facility] ([place]) Comment on above: Performed By: #### U A, UAMICAO #### [place] [address] UA Appear Slightly Cloudy Abnormal Clear [facility] ([place]) Comment on above: Performed By: #### U A, UAMICAO #### [place] [address] UA Blood Negative Normal Negative [facility] ([place]) Comment on above: Performed By: #### U A, UAMICAO #### [place] [address] UA Leuk Est Negative Normal Negative [facility] ([place]) Comment on above: Performed By: #### U A, UAMICAO #### [place] [address] UA Nitrite Negative Normal Negative [facility] ([place]) Comment on above: Performed By: #### U A, UAMICAO #### [place] [address] UA pH 8.0 Normal 5.0 - 8.0 [facility] ([place]) Comment on above: Performed By: #### U A, UAMICAO #### [place] [address] UA Protein Negative Normal Negative [facility] ([place]) Comment on above: Performed By: #### U A, UAMICAO #### [address] [address] UA Spec Grav 1.020 Normal 1.015-1.025 [facility] ([place]) Comment on above: Performed By: #### U A, UAMICAO #### [address] [address] UA Specimen Type Clean Catch Normal [facility] ([place]) Comment on above: Performed By: #### U A, UAMICAO #### [address] [address] UA Urobilinogen 0.2 E.U./dL Normal 0.2-1.0 [facility] ([place]) Comment on above: Performed By: #### U A, UAMICAO #### [address] [address] Urobilinogen (U) [Mass/Vol] Negative Normal Negative [facility] ([place]) Comment on above: Performed By: #### U A, UAMICAO #### [address] [address] CTPCRon 12-31-2022 C. trachomatis Interp Normal See CT Interp N [facility] ([place]) Comment on above: Result Comment: C. t rachomatis DNA not detected. Specimen is presumptive negative for C. trachomatis. A negative result does not preclude C. trachomatis infection because results depend on adequate specimen collection, absence of inhibitors, and sufficient DNA to be detected. See CT Interp N Performed By: #### N GPCR1, CTPCR #### [address] [address] C.trachomatis PCR Negative Normal Negative [facility] ([place]) Comment on above: Result Comment: [place] sport tube received with two swabs. Review collection procedure. Inappropriate collection may cause aberrant results. Molecular (PCR) assay performed on the [employer] [id number] system. Performed By: #### N GPCR1, CTPCR #### [address] [address] Chlam Source Cervix Normal [facility] ([place]) Comment on above: Performed By: #### N GPCR1, CTPCR #### [address] [address] [id number] 12-31-2022 GC PCR Source Cervix Normal [facility] ([place]) Comment on above: Performed By: #### N GPCR1, CTPCR #### [address] [address] N. gonorrhoeae (PCR) Negative Normal Negative [facility] ([place]) Comment on above: Result Comment: [place] sport tube received with two swabs. Review collection procedure. Inappropriate collection may cause aberrant results. Molecular (PCR) assay performed on the [employer] 4800 System. Performed By: #### N GPCR1, CTPCR #### [address] [address] N. gonorrhoeae Interp Normal See NG Interp N [facility] ([place]) Comment on above: Result Comment: N. g onorrhoeae DNA not detected. Specimen is presumptive negative for N. gonorrhoeae. A negative result does not preclude Neisseria gonorrhoeae infection because results depend on adequate specimen collection, absence of inhibitors, and sufficient DNA to be detected. See NG Interp N Performed By: #### N GPCR1, CTPCR #### [place] [id number] LABORATORYOrdered By: Elsy Wright on 12-30-2022 Appearance (U) Clear (12/30/22 10:52 AM) Invalid Interpretation Code Clear AO Auto Urine SS Bilirubin Ql (U) Negative (12/30/22 10:52 AM) Invalid Interpretation Code Negative AO Auto Urine SS Color (U) Yellow (12/30/22 10:52 AM) Invalid Interpretation Code AO Auto Urine SS Glucose Test strip (U) [Mass/Vol] Negative Invalid Interpretation Code Negative AO Auto Urine SS HCG ( test) Ql Negative (12/30/22 10:52 AM) Invalid Interpretation Code AO Manual Urine SS Hemoglobin Auto test strip (U) [Mass/Vol] Trace *ABN* (12/30/22 10:52 AM) Invalid Interpretation Code Negative AO Auto Urine SS Ketones Ql (U) Negative Invalid Interpretation Code Negative AO Auto Urine SS test (u) int Not detected Invalid Interpretation Code AO Manual Urine SS UA Leuk Est Negative (12/30/22 10:52 AM) Invalid Interpretation Code Negative AO Auto Urine SS UA Nitrite Negative (12/30/22 10:52 AM) Invalid Interpretation Code Negative AO Auto Urine SS UA pH 6.5 (12/30/22 10:52 AM) Invalid Interpretation Code 5.0 - 8.0 AO Auto Urine SS UA Protein Negative Invalid Interpretation Code Negative AO Auto Urine SS UA Spec Grav 1.015 (12/30/22 10:52 AM) Invalid Interpretation Code 1.015-1.025 AO Auto Urine SS UA Specimen Type Clean Catch (12/30/22 10:52 AM) Invalid Interpretation Code AO Auto Urine SS UA Urobilinogen 0.2 E.U./dL Invalid Interpretation Code 0.2-1.0 AO Auto Urine SS PREGUon 12-30-2022 HCG ( test) Ql (U) Negative Normal [facility] ([place]) Comment on above: Performed By: #### U A, PREGU #### [place] [id number] test (u) int Not detected Invalid Interpretation Code [facility] ([place]) Comment on above: Performed By: #### U A, PREGU #### [address] [address] UAon 12-30-2022 Color (U) Yellow Normal [facility] ([place]) Comment on above: Performed By: #### U A, PREGU #### [address] [address] Glucose (U) [Mass/Vol] Negative Normal Negative [facility] ([place]) Comment on above: Performed By: #### U A, PREGU #### [address] [address] Ketones Ql (U) Negative Normal Negative [facility] ([place]) Comment on above: Performed By: #### U A, PREGU #### [address] [address] UA Appear Clear Normal Clear [facility] ([place]) Comment on above: Performed By: #### U A, PREGU #### [address] [address] UA Blood Trace Abnormal Negative [facility] ([place]) Comment on above: Performed By: #### U A, PREGU #### [address] [address] UA Leuk Est Negative Normal Negative [facility] ([place]) Comment on above: Performed By: #### U A, PREGU #### [address] [address] UA Nitrite Negative Normal Negative [facility] ([place]) Comment on above: Performed By: #### U A, PREGU #### [address] [address] UA pH 6.5 Normal 5.0 - 8.0 [facility] ([place]) Comment on above: Performed By: #### U A, PREGU #### [address] [address] UA Protein Negative Normal Negative [facility] ([place]) Comment on above: Performed By: #### U A, PREGU #### [address] [address] UA Spec Grav 1.015 Normal 1.015-1.025 [facility] ([place]) Comment on above: Performed By: #### U A, PREGU #### [address] [address] UA Specimen Type Clean Catch Normal [facility] ([place]) Comment on above: Performed By: #### U A, PREGU #### [address] [address] UA Urobilinogen 0.2 E.U./dL Normal 0.2-1.0 [facility] ([place]) Comment on above: Performed By: #### U A, PREGU #### [place] [id number] Urobilinogen (U) [Mass/Vol] Negative Normal Negative [facility] ([place]) Comment on above: Performed By: #### U A, PREGU #### [address] [address] Absolute lymphocyte countOrd ered By: Chung Shanks on 11-01-2022 Lymphocytes Auto (Unsp spec) [#/Vol] 3.04 10*3/uL 0.83-4.51 [facility] Alcohol, Blood (Medical)-Ser umon 11-01-2022 SERUM ETOH < 3.0 Normal [facility] Comment on above: Result Comment: The serum:whole blood ethanol ratio is approximately 1.14 and varies slightly with hematocrit. Medical Alcohol reference interval and critical value in non-tolerant individuals; 50 - 100 Impairment 100 Intoxication 100 - 250 Severe Poisoning 250 - 400 Deep/possible fatal coma Performed By: #### L 100.0100, L501.9100, L700.6800, L500.2500, L505.5000 #### [facility] [address] [place], [address] Basic Metabolic Profile (BMP )on 11-01-2022 BUN/CRE 10.8 RATIO Normal 10-20 [facility] Comment on above: Performed By: #### L 100.0100, L501.9100, L700.6800, L500.2500, L505.5000 #### [facility] [address] [place], [address] CA,Total 9.2 mg/dL Normal 8.5-10.1 [facility] Comment on above: Performed By: #### L 100.0100, L501.9100, L700.6800, L500.2500, L505.5000 #### [facility] [address] [place], [address] Chloride [Moles/Vol] 105 mmol/L Normal 98-107 [facility] Comment on above: Performed By: #### L 100.0100, L501.9100, L700.6800, L500.2500, L505.5000 #### [facility] [address] [place], [address] CO2 [Moles/Vol] 25.0 mmol/L Normal 21.0-32.0 [facility] Comment on above: Performed By: #### L 100.0100, L501.9100, L700.6800, L500.2500, L505.5000 #### [facility] [address] [place], [address] Creatinine [Mass/Vol] 0.74 mg/dL Normal 0.55-1.02 [facility] Comment on above: Result Comment: The validity of the calculated GFR GFRAA in patients over 70 years has not been determined. Clinical correlation is essential. Performed By: #### L 100.0100, L501.9100, L700.6800, L500.2500, L505.5000 #### [facility] [address] [place], [address] ECRCL 102.97 ml/min Normal [facility] Comment on above: Performed By: #### L 100.0100, L501.9100, L700.6800, L500.2500, L505.5000 #### [facility] [address] [place], [address] EST GFR - AA 125 mL/min Normal >60 [facility] Comment on above: Result Comment: Afri can Panamanian GFR Calc Performed By: #### L 100.0100, L501.9100, L700.6800, L500.2500, L505.5000 #### [facility] [address] [place], [address] GAP 7 Normal 5-15 [facility] Comment on above: Performed By: #### L 100.0100, L501.9100, L700.6800, L500.2500, L505.5000 #### [facility] [address] [place], [address] GFR/1.73 sq M.predicted among non-blacks MDRD (S/P/Bld) [Vol rate/Area] 103 mL/min/{1.73_m2} Normal >60 [facility] Comment on above: Result Comment: Non- GFR Calc Performed By: #### L 100.0100, L501.9100, L700.6800, L500.2500, L505.5000 #### [facility] [address] [place], [address] Glucose [Mass/Vol] 86 mg/dL Normal 74-106 [facility] Comment on above: Performed By: #### L 100.0100, L501.9100, L700.6800, L500.2500, L505.5000 #### [facility] [address] [place], [address] Potassium [Moles/Vol] 3.3 mmol/L Low 3.5-5.1 [facility] Comment on above: Performed By: #### L 100.0100, L501.9100, L700.6800, L500.2500, L505.5000 #### [facility] [address] [place], [address] Sodium [Moles/Vol] 137 mmol/L Normal 136-145 [facility] Comment on above: Performed By: #### L 100.0100, L501.9100, L700.6800, L500.2500, L505.5000 #### [facility] [address] [place], [address] Urea nitrogen [Mass/Vol] 8 mg/dL Normal 7-18 [facility] Comment on above: Performed By: #### L 100.0100, L501.9100, L700.6800, L500.2500, L505.5000 #### [facility] [address] [place], [address] Basophil percentageOrdered B y: Chung Shanks on 11-01-2022 Basophils/100 WBC (Bld) 1.0 % 0-1 [facility] Chloride [Moles/Vol] 105 mmol/L 98-107 [facility] Eosinophils/100 WBC (Bld) 3.7 % 0-5 [facility] Glucose [Mass/Vol] 86 mg/dL 74-106 [facility] Neutrophils (Bld) [#/Vol] 8.1 10*3/uL 2.0-7.7 [facility] Neutrophils/100 WBC (Bld) 64.3 % 47-70 [facility] Potassium [Moles/Vol] 3.3 mmol/L 3.5-5.1 [facility] Sodium [Moles/Vol] 137 mmol/L 136-145 [facility] WBC (Bld) [#/Vol] 12.6 10*3/uL 4.4-11.0 [facility] Beta hCG serum qualOrdered B y: Chung Shanks on 11-01-2022 Beta HCG ( test) Ql Negative [facility] Blood erythrocytes count (nu mber/volume)Ordered By: Chung Shanks on 11-01-2022 RBC (Bld) [#/Vol] 4.68 10*6/uL 4.2-5.4 [facility] Blood hemoglobin measurement (mass/volume)Ordered By: Chung Shanks on 11-01-2022 Hemoglobin (Bld) [Mass/Vol] 13.5 g/dL 12.0-15.0 [facility] Blood lymphocytes/100 leukoc ytesOrdered By: Chung Shanks on 11-01-2022 Lymphocytes/100 WBC (Bld) 24.2 % 19-41 [facility] Blood monocytes/100 leukocyt esOrdered By: Chung Shanks on 11-01-2022 Monocytes/100 WBC (Bld) 6.4 % 0-10 [facility] Blood platelet mean volumeOr dered By: Chung Shanks on 11-01-2022 Platelet mean volume (Bld) [Entitic vol] 9.4 fL 6.2-12.0 [facility] CBC W/Diff, Automatedon 10-10 Absolute Lymph 3.04 X10 3/uL Normal 0.83-4.51 [facility] Comment on above: Performed By: #### L 100.0100, L501.9100, L700.6800, L500.2500, L505.5000 #### [facility] [address] [place], [address] Absolute Neut 8.1 X10 3/uL High 2.0-7.7 [facility] Comment on above: Performed By: #### L 100.0100, L501.9100, L700.6800, L500.2500, L505.5000 #### [facility] [address] [place], [address] Basophils/100 WBC (Bld) 1.0 % Normal 0-1 [facility] Comment on above: Performed By: #### L 100.0100, L501.9100, L700.6800, L500.2500, L505.5000 #### [facility] [address] [place], [address] Eosinophils/100 WBC (Bld) 3.7 % Normal 0-5 [facility] Comment on above: Performed By: #### L 100.0100, L501.9100, L700.6800, L500.2500, L505.5000 #### [facility] [address] [place], [address] Erythrocyte distribution width (RBC) [Ratio] 12.9 % Normal 11.6-14.6 [facility] Comment on above: Performed By: #### L 100.0100, L501.9100, L700.6800, L500.2500, L505.5000 #### [facility] [address] [place], [address] Hematocrit (Bld) [Volume fraction] 40.6 % Normal 37-47 [facility] Comment on above: Performed By: #### L 100.0100, L501.9100, L700.6800, L500.2500, L505.5000 #### [facility] [address] [place], [address] Hemoglobin (Bld) [Mass/Vol] 13.5 g/dL Normal 12.0-15.0 [facility] Comment on above: Performed By: #### L 100.0100, L501.9100, L700.6800, L500.2500, L505.5000 #### [facility] [address] [place], [address] IG% 0.400 Normal 0.0-0.9 [facility] Comment on above: Result Comment: IG% - Immature Granulocytes (promyelocytes, myelocytes and metamyelocytes) > 1% indicates that a LEFT SHIFT is Present. Performed By: #### L 100.0100, L501.9100, L700.6800, L500.2500, L505.5000 #### [facility] [address] [place], [address] Lymphocytes/100 WBC (Bld) 24.2 % Normal 19-41 [facility] Comment on above: Performed By: #### L 100.0100, L501.9100, L700.6800, L500.2500, L505.5000 #### [facility] [address] [place], [address] MCH (RBC) [Entitic mass] 28.8 pg Normal 27.0-32.0 [facility] Comment on above: Performed By: #### L 100.0100, L501.9100, L700.6800, L500.2500, L505.5000 #### [facility] [address] [place], [address] MCHC (RBC) [Mass/Vol] 33.3 g/dL Normal 32-36 [facility] Comment on above: Performed By: #### L 100.0100, L501.9100, L700.6800, L500.2500, L505.5000 #### [facility] [address] [place], [address] MCV (RBC) [Entitic vol] 86.8 fL Normal 81-99 [facility] Comment on above: Performed By: #### L 100.0100, L501.9100, L700.6800, L500.2500, L505.5000 #### [facility] [address] [place], [address] Monocytes/100 WBC (Bld) 6.4 % Normal 0-10 [facility] Comment on above: Performed By: #### L 100.0100, L501.9100, L700.6800, L500.2500, L505.5000 #### [facility] [address] [place] [place], [address] Neutrophils/100 WBC (Bld) 64.3 % Normal 47-70 [facility] Comment on above: Performed By: #### L 100.0100, L501.9100, L700.6800, L500.2500, L505.5000 #### [facility] [address] [place], [address] Nucleated RBC (Bld) [#/Vol] 0 10*3/uL Normal 0-5 [facility] Comment on above: Performed By: #### L 100.0100, L501.9100, L700.6800, L500.2500, L505.5000 #### [facility] [address] [place], [address] Platelet mean volume (Bld) [Entitic vol] 9.4 fL Normal 6.2-12.0 [facility] Comment on above: Performed By: #### L 100.0100, L501.9100, L700.6800, L500.2500, L505.5000 #### [facility] [address] [place] [place], [address] Platelets (Bld) [#/Vol] 316 10*3/uL Normal 150-450 [facility] Comment on above: Performed By: #### L 100.0100, L501.9100, L700.6800, L500.2500, L505.5000 #### [facility] [address] [place], [address] RBC (Bld) [#/Vol] 4.68 10*6/uL Normal 4.2-5.4 [facility] Comment on above: Performed By: #### L 100.0100, L501.9100, L700.6800, L500.2500, L505.5000 #### [facility] [address] [place], [address] RDW SD 40.7 fl Normal 35.1-43.9 [facility] Comment on above: Performed By: #### L 100.0100, L501.9100, L700.6800, L500.2500, L505.5000 #### [facility] [address] [facility] [address] [place], [address] WBC (Bld) [#/Vol] 12.6 10*3/uL High 4.4-11.0 [facility] Comment on above: Performed By: #### L 100.0100, L501.9100, L700.6800, L500.2500, L505.5000 #### [facility] [address] [facility] [place], [address] COVID 19 AG RAPID (RN COLLE T)on 11-01-2022 SARS-CoV-2 (COVID-19) RNA MAIKOL+probe Ql (Unsp spec) *Negative results from patients with symptom onset beyond five days should be treated as presumptive and confirmed by a molecular assay if clinically necessary. Negative results should not be used as the sole basis for treatment or for patient management. SARS-CoV-2 Ag Resp Ql IA.rapid *Positive results do not differentiate between SARS-CoV and SARS-CoV-2. If differentiation of the specific SARS virus is desired an additional sample and an additional order is required. SARS-CoV-2 Ag Resp Ql IA.rapid * This test has not been FDA cleared or approved; the test has been authorized by FDA under an Emergency Use Authorization (EAU) for use by laboratories certified under CLIA that meet the requirements to perform moderate, high, or waived complexity tests. SARS-CoV-2 Ag Resp Ql IA.rapid Normal Reference Range: Negative SARS-CoV-2 (COVID 19) Negative RAPID METHOD [employer] COVID19 Ag Card Normal [facility] Comment on above: Performed By: #### M 100.505 #### [facility] [address] [facility] [place], [address] COVID-19 virus antigen assay Ordered By: Chung Shanks on 11-01-2022 SARS-CoV-2 (COVID-19) Ag IA.rapid Ql (Resp) [facility] Determination of erythrocyte mean corpuscular volume (MCV)Ordered By: Chung Shanks on 11-01-2022 MCV (RBC) [Entitic vol] 86.8 fL 81-99 [facility] Emergency Department Summary on 11-01-2022 Emergency Department Summary [facility] Medical Records Department [address] [place] [address] Emergency Department Summary 11/01/22 MR#: [id number] Acct: [id number] Name: LORENE CROSS Rep #: [id number] : 2000 22 From: Chung Shanks MD PCP: Care Physician,No Primary Status:REG ER Location: ED ADDENDUM by Dr. Sobia Bauer DO on 11/01/22 at 1047 Patient accepted at [facility] by Dr. Farris. Patient signed out to me pending acceptance. No acute events. 11/01/22 1047 Cosigner Signature (if applicable): cc: No Primary Care Physician * Signed HPI HPI - Psych History of Present Illness Chief Complaint: Mental Health Narrative Narrative: Patient presents with suicidal ideations. She feels like she does not want to live although she does not have a plan at this time. She tells me there is no specific reason why this is happening she does not know any stressors in her life, she has had similar symptoms in the past and a few years ago she was admitted psychiatrically for similar symptoms. She has not done anything to harm herself at this time [facility] Medical History (Updated 11/01/22 @ 00:[address] Chung Shanks MD) Alcohol abuse Anxiety Asthma Depression Substance abuse Home Medications NK 05/21/19 [History Last Taken Unknown] Allergy/AdvReac Type Severity Reaction Status Date / Time No Known Allergies Allergy Verified 11/01/22 00:38 Social History Smoking Status: Current every day smoker tobacco type: e-cigarettes ROS ROS ED ROS Narrative Past medical history: Reviewed Medications: Reviewed Social history: Noncontributory Review of systems: General: No fever Eyes: No visual changes ENT: No upper airway congestion, normal voice Neck: No neck pain Cardiovascular: No chest pain Respiratory: No shortness of breath or cough Gastrointestinal: No abdominal pain, nausea vomiting or diarrhea Genitourinary: No dysuria Musculoskeletal: Denies myalgias no difficulty with ambulation Skin: No rash Neurological: No memory loss, confusion or any focal weakness Psych: As in HPI EXAM Physical Exam Narrative Exam Narrative: Physical exam General: She is tearful. She does not appear in any other distress Head: Normocephalic, Atraumatic Eyes: Conjunctiva not pale ENT: Moist mucous membranes Neck: Supple, Nontender, No lymphadenopathy Cardiovascular: Regular rate, Regular rhythm Respiratory: No distress, CTA bilaterally Abdomen: Soft, Nontender, Nondistended Back: Nontender, Normal Inspection. Negative for: CVA tenderness Extremities: Nontender, No edema Skin: Normal color, No rash Neurological: Alert, Normal Strength, Normal Sensation Psychological: Tearful, admits to being depressed and anxious and having suicidal ideations otherwise she is lucid and coherent and gives me a good history. No psychosis. Const Vital Signs: 11/01/22 00:38 Temperature 98.8 F Temperature Source Temporal Pulse Rate 97 Respiratory Rate 20 H Blood Pressure 115/88 H Blood Pressure Mean 97 Pulse Ox 100 Oxygen Delivery Method Room Air MDM MDM MDM Narrative Medical decision making narrative: Patient is actively suicidal. She will need psychiatric placement. I will medically clear her. Otherwise she will be evaluated by crisis for psychiatric admission. Discharge Plan Triage Chief Complaint: Mental Health ED Provider: Chung Shanks Dx/Rx/DC Orders Clinical Impression: Anxiety, Depression, Feeling suicidal Prescriptions: No Action NK Primary Care Provider: Timothy Enciso Referrals: Timothy Enciso MD [Primary Care Provider] - Disposition Disposition: Psychiatric Hospital or Unit What to do if you have Problems For any increased pain, shortness of breath, bleeding, nausea or vomiting, chest pain, or any unexpected problems, contact your Primary Care Provider. Call [facility] ([phone]) or report to the closest Emergency Room. Call 911 if necessary. 11/01/22 0054 Cosigner Signature (if applicable): CC: No Primary Care Physician Signed Normal [facility] Hematocrit Auto (Bld) [Volum e fraction]Ordered By: Chung Shanks on 11-01-2022 Hematocrit (Bld) [Volume fraction] 40.6 % 37-47 [facility] - Chemistry and C hemistry - challengeOrdered By: Chung Shanks on 11-01-2022 CO2 [Moles/Vol] 25.0 mmol/L 21.0-32.0 [facility] Urea nitrogen/Creatinine [Mass ratio] 10.8 mg/mg 10-20 [facility] - Drug toxicology Ordered By: Chung Shanks on 11-01-2022 Amphetamines Ql (U) Negative <1000 ng/mL [facility] Benzodiazepines Ql (U) Negative < 200 ng/mL [facility] Cannabinoids Screen Ql (U) Positive < 50 ng/mL [facility] Cocaine Ql (U) Positive < 300 ng/mL [facility] Opiates Ql (U) Negative < 300 ng/mL [facility] - Hematology and Cell countsOrdered By: Chung Shanks on 11-01-2022 Erythrocyte distribution width (RBC) [Entitic vol] 40.7 fL 35.1-43.9 [facility] Erythrocyte distribution width (RBC) [Ratio] 12.9 % 11.6-14.6 [facility] Immature granulocytes/100 WBC (Bld) 0.400 % 0.0-0.9 [facility] Comment on above: IG% - Immature Granu locytes (promyelocytes, myelocytes and metamyelocytes) > 1% indicates that a LEFT SHIFT is Present. MCH (RBC) [Entitic mass] 28.8 pg 27.0-32.0 [facility] Nucleated RBC/100 WBC (Bld) [Ratio] 0 % 0-5 [facility] MCHC Auto (RBC) [Mass/Vol]Or dered By: Chung Shanks on 11-01-2022 MCHC (RBC) [Mass/Vol] 33.3 g/dL 32-36 [facility] No Panel InformationOrdered By: Chung Shanks on 11-01-2022 MDMA (Ecstasy) Screen Negative < 500 ng/mL [facility] Urine Barbiturates Screen Negative < 200 ng/mL [facility] Urine Drug Screen Comment [facility] Comment on above: CONFIRMATORY TESTING FOR ALL POSITIVE URINE DRUG SCREENRESULTS WILL ONLY BE SENT OUT UPON PHYSICIAN ORDER. [facility]ISTA Urine Drug Screen methods provide only preliminaryanalytical test results. A more specific alternate chemicalmethod must be used in order to obtain a confirmedanalytical result. Gas chromatography/mass spectrometery(GC/MS) is the preferred confirmatory method. Clinicalconsideration and professional judgement should be appliedto any drug of abuse test result, particularly whenpreliminary positive results are used. URINE TCA TESTING MUST BE ORDERED SEPARATELY. USE TESTMNEMONIC: [facility] Urine Methadone Screen Negative < 300 ng/mL [facility] Estimated Creatinine Clearance Calc 102.97 ml/min [facility] Estimated GFR (MDRD) Amer 125 mL/min >60 [facility] Comment on above: GFR Calc Estimated GFR (MDRD) Non-Af Amer 103 mL/min >60 [facility] Comment on above: Non- GFR Calc Ethyl Alcohol Level < 3.0 mg/dL [facility] Comment on above: The serum:whole bloo d ethanol ratio is approximately 1.14and varies slightly with hematocrit. Medical Alcohol reference interval and critical value innon-tolerant individuals; 50 - 100 Impairment 100 Intoxication 100 - 250 Severe Poisoning 250 - 400 Deep/possible fatal coma Platelets bldOrdered By: Candis Shanks on 11-01-2022 Platelets (Bld) [#/Vol] 316 10*3/uL 150-450 [facility] ,Serum,hCG Quali.on 11-01-2022 HCG, SERUM QUAL Negative Normal [facility] Comment on above: Performed By: #### L 100.0100, L501.9100, L700.6800, L500.2500, L505.5000 #### [facility] [address] [place], [address] Serum or plasma calcium lorna urement (mass/volume)Ordered By: Chung Shanks on 07-24-2023 Calcium [Mass/Vol] 9.2 mg/dL 8.5-10.1 [facility] Serum or plasma creatinine m easurement (mass/volume)Ordered By: Chung Shanks on 11-01-2022 Creatinine [Mass/Vol] 0.74 mg/dL 0.55-1.02 [facility] Comment on above: The validity of the calculated GFR & GFRAA in patients over 70 years has not been determined. Clinical correlation is essential. Serum or plasma urea nitroge n measurement (mass/volume)Ordered By: Chung Shanks on 11-01-2022 Urea nitrogen [Mass/Vol] 8 mg/dL 718 [facility] Thin prep Papanicolaou smear with manual screeningOrdered By: Chung Shanks on 11-01-2022 Thin prep Papanicolaou smear with manual screening 7 -15 [facility] Urine Drug Screen (VISTA)on 11-01-2022 AMPHETAMINES Negative Normal <1000 ng/mL [facility] Comment on above: Performed By: #### L 100.0100, L501.9100, L700.6800, L500.2500, L505.5000 #### [facility] [address] [place], [address] BARBITIURATES Negative Normal < 200 ng/mL [facility] Comment on above: Performed By: #### L 100.0100, L501.9100, L700.6800, L500.2500, L505.5000 #### [facility] [address] [place], [place], [id number] BENZODIAZIPINE Negative Normal < 200 ng/mL [facility] Comment on above: Performed By: #### L 100.0100, L501.9100, L700.6800, L500.2500, L505.5000 #### [facility] [address] [place], [place], [id number] COCAINE Positive Abnormal < 300 ng/mL [facility] Comment on above: Performed By: #### L 100.0100, L501.9100, L700.6800, L500.2500, L505.5000 #### [facility] [address] [place], [address] ECSTACY Negative Normal < 500 ng/mL [facility] Comment on above: Performed By: #### L 100.0100, L501.9100, L700.6800, L500.2500, L505.5000 #### [facility] [address] [place], [place], [facility] METHADONE Negative Normal < 300 ng/mL [facility] Comment on above: Performed By: #### L 100.0100, L501.9100, L700.6800, L500.2500, L505.5000 #### [facility] [address] [place], [place], [facility] OPIATES Negative Normal < 300 ng/mL [facility] Comment on above: Performed By: #### L 100.0100, L501.9100, L700.6800, L500.2500, L505.5000 #### [facility] [address] [place], [place], [facility] PCP Negative Normal < 25 ng/mL [facility] Comment on above: Performed By: #### L 100.0100, L501.9100, L700.6800, L500.2500, L505.5000 #### [facility] [place], [place], [facility] THC Positive Abnormal < 50 ng/mL [facility] Comment on above: Performed By: #### L 100.0100, L501.9100, L700.6800, L500.2500, L505.5000 #### [facility] [address] [place], [place], [facility] VISTA UDS PH 5 Normal [facility] Comment on above: Performed By: #### L 100.0100, L501.9100, L700.6800, L500.2500, L505.5000 #### [facility] [address] [place], [address] Urine phencyclidine (PCP) de tectionOrdered By: Chung Shanks on 11-01-2022 Phencyclidine Ql (U) Negative < 25 ng/mL [facility] CNCOon 01-12-2022 CNCO Letter Text Normal [facility] CNOVon 12-29-2021 CNOV Office Visit (OBGYWM ) LORENE CROSS ([id number]) 1 F Date Time Provider Department 12/29/21 9:30 AM NOEMI HUGHES OBGYWM During your visit today, we recorded the following information about you: Blood pressure Weight 102/62 54.3 kg Noemi Hughes APRN.CNM 12/29/2021 9:45 AM Signed Lorene is a 21 year old who presents for Nexplanon removal for scheduled 3 year removal. UNIVERSAL PROTOCOL / SAFETY CHECKLIST Procedure to be Performed: Nexplanon Removal Sign In: A Moment of CARE was completed. Personnel directly involved with the procedure wore the appropriate PPE (Personal Protective Equipment). Patient/Surrogate Stated/Verified: PATIENT VERIFIED(optional for EMERGENT procedures): Patient name, Date of , Relevant allergies, and The intended procedure Time Out Communication: Intended patient and procedure match the source documents. Consent documented and matches the intended procedure. Sign Out: SIGN OUT (optional for EMERGENT procedures): No specimen collected. TECHNIQUE: Patient placed in supine position with left arm bent at the elbow and placed over the head. Skin cleansed with betadine. 1.5mL of 1% lidocaine with epi injected subQ along insertion site. Scalpel used to made a 5mm stab incision superficially at distal end of Nexplanon. Device removed under sterile technique with a small hemostat. Sterile pressure dressing applied. AANDP: 21 year old here for Nexplanon removal Nexplanon removed intact without difficulty. The patient was instructed to remove the dressing after 24 hours. Contraceptive plans unsure- condoms at this time. Noemi Hughes APRN.[facility] Referring Provider: NOEMI HUGHES [[id number]] Allergies As of Date: 12/29/2021 Noted Allergy Reaction BETA BLOCKERS (BETA-BLOCKERS (BET*11/08/2012 15 - Contraindication-Medica l Randhawa* Comments: Avoid beta blockers as patient is on allergy immunotherapy CATS 08/17/2008 DOGS 08/17/2008 environmental [Other] 08/17/2008 GRASS POLLEN 10/08/2009 MOLD 10/08/2009 RAGWEED 10/08/2009 TREES 10/08/2009 Date Reviewed: 12/29/2021 Reviewed by: Montse Frost MA - Fully Assessed Reason for Visit: nexplanon removal [Other] Primary Visit Diagnosis:Encounter for gynecological examination (general) (routine) without abnormal findings [Z01.419] Prescriptions as of 12/29/2021 - etonogestrel (NEXPLANON) subdermal implant 68 mg 1 Each by SUBDERMAL route as directed. - traZODone (DESYREL) 50 mg tablet TAKE 1 TABLET BY ORAL ROUTE 1 AT BEDTIME AT BEDTIME - ARIPiprazole (ABILIFY) 5 mg tablet Take 5 mg by mouth once daily. - cetirizine (ZYRTEC) 10 mg tablet TAKE 1 TABLET BY MOUTH ONCE DAILY NEEDED. - montelukast (SINGULAIR) 10 mg tablet TAKE 1 TABLET BY MOUTH EVERYDAY AT BEDTIME - ADVAIR DISKUS 100-50 mcg/dose dsdv INHALE 1 PUFF INSTRUCTED TWICE DAILY. RINSE AND GARGLE MOUTH WITH WATER AFTER EACH USE. - polyethylene glycol 3350 (MIRALAX) 17 gram/dose powder Take 17 g by mouth once daily. - albuterol HFA (VENTOLIN HFA) 90 mcg/actuation inhaler Inhale 2 Puffs as instructed every 4 hours as needed. - albuterol 2.5 mg /3 mL (0.083 %) nebulizer solution Use via nebulizer. One ampule nebulized every 4 hours as needed for cough, wheezing, chest tightness or shortness of breath Problem List As Of Date 12/29/2021 Noted Resolved Unspecified Asthma [J45.909] 01/20/2007 12/18/2009 Extrinsic Asthma, Unspecified [J45.909] 12/18/2009 Allergic Rhinitis, Cause Unspecified [J30.9] 12/18/2009 Other Atopic Dermatitis and Related Conditions *12/18/2009 Depression [F32.A] 12/22/2021 Generalized anxiety disorder [F41.1] 12/22/2021 Disposition: Return if symptoms worsen or fail to improve. Follow-up and Disposition History for Encounter Date Provider Department Center 12/29/2021 [id number] HUGHES [facility] Encounter Status:Closed by NOEMI HUGHES on 12/29/21 Normal [facility] C. trachomatis+N. gonorrhoea e DNA MAIKOL+probe Ql (Unsp spec)on 12-22-2021 C. trachomatis DNA MAIKOL+probe Ql (Unsp spec) Negative Normal Negative for Chlamydia trachomatis by amplificaton [facility] Comment on above: Order Comment: Speci men Type: SWAB Ordering Facility: [facility] Address: [address] [place] [address] Performed By: #### T RVAMP, [id number] #### [facility] CLIA [id number] [address] [place] [address] STATES OF [facility] N. gonorrhoeae DNA MAIKOL+probe Ql (Unsp spec) Negative Normal Negative for Neisseria gonorrhoeae by amplification [facility] Comment on above: Order Comment: Speci men Type: SWAB Ordering Facility: [facility] Address: [address] [place] [address] Performed By: #### T RVAMP, [id number] #### [facility] CLIA [id number] [address] [place] [address] [place] CNOVon 12-22-2021 CNOV Office Visit (OBGYWM ) LORENE CROSS ([id number]) 1 F Date Time Provider Department 12/22/21 8:15 AM NOEMI HUGHES During your visit today, we recorded the following information about you: Blood pressure Weight Height 102/62 54 kg 1.645 m Noemi Hughes APRN.CNM 12/22/2021 8:45 AM Signed Lorene is a 21 year old who presents for an annual gynecologic exam without complaints. Lexapro for anxiety and depression. Dr. Valencia - counseling center in [place]. This is first PAP. Nexplanon due for removal 03/2022- unsure what type of control she wants to use after removal. Menses: breakthough bleeding Nexplanon. Contraception: Nexplanon HPV vaccine: Yes Last Pap: n/a HPV: N/A History of abnormal pap: No Last mammogram: never Sexually active: Yes- co. Months ago Patient concerns for STD exposure: unsure Pain with intercourse: No Postcoital bleeding: No Exercise: gym Diet: Regular Seatbelt use: Yes OB History T0 L0 SAB0 IAB0 Ectopic0 Multiple0 Live Births0 [employer] History LMP: 03/19/2019 (Exact Date), Implant Age at Menarche: Age at First : Age at Menopause: Gas [employer]der History Comments: Sexual Activity: Yes; Female, Male Contraception: Condom PAST MEDICAL HISTORY Diagnosis Date Cardiac arrest (HCC) 8 yrs old Secondary to status asthmaticus- life flighted to [facility] Contact dermatitis and other eczema, due to unspecified cause normal color vision Unspecified asthma(493.90) PAST SURGICAL HISTORY Procedure Laterality Date REMOVE TONSILS/ADENOIDS,<12 Y/O 11/12 FAMILY HISTORY Problem Relation Age of Onset Heart Mother Hypertension Mother No Known Problems Father No Known Problems Sister No Known Problems Sister Breast Cancer Maternal Aunt x 2 Asthma Sister No Known Problems Brother No Known Problems Maternal Grandmother SOCIAL HISTORY Social History Tobacco Use Smoking status: Passive Smoke Exposure - Never Smoker Smokeless tobacco: Never Tobacco comments: outdoors mother Vaping Use Vaping Use: Former Substance Use Topics Alcohol use: Yes Comment: Socially Drug use: Not Currently REVIEW OF SYSTEMS Abdomen: No abdominal pain, nausea, vomiting, diarrhea, or constipation. No bloating, early satiety, indigestion, or increased flatulence. Bladder: No dysuria, gross hematuria, urinary frequency, urinary urgency, or incontinence. Breast: No breast lumps, nipple d/c, overlying skin changes, redness or skin retraction. Allergies and current medication updated:Yes EXAM: Ht 5' 4.75 (1.65m) Wt 119 lb (54.0kg) LMP 03/19/2019 BMI 19.95 kg/(m2). GENERAL: pleasant, female in no apparent distress HEENT: Normocephalic, atraumatic, mucus membranes moist, and no lesions NECK: Supple, full range of motion, no adenopathy, and thyroid normal DERMATOLOGY: Normal, without lesions, non-icteric, and non-hirsute BREAST: soft, non-tender, symmetric, no dominant mass, normal nipple-areolar complex, no lymphadenopathy, and no nipple discharge CHEST: Normal inspiratory effort ABDOMEN: soft, non-tender, and no masses PELVIC: external genitalia normal, normal Bartholin's glands, urethra, [place]'s glands, no vulvar lesions, no cervical lesions, good vaginal support, physiologic discharge present, normal appearing perineal body and perianal region BIMANUAL: uterus normal size, shape and consistency, no adnexal masses, non-tender, and no cervical motion tenderness RECTOVAGINAL: deferred. NEURO: alert and oriented x3,exam grossly non-focal EXTREMITIES: normal ASSESSMENT/PLAN: 1) Health maintenance: Pap done with reflex HPV. Nutrition, exercise and routine health maintenance exams reviewed. Vitamin D: ordered- Psychiatrist recommended level to be drawn d/t depression diagnosis 2) Contraception: Nexplanon. Contraceptive options reviewed and information provided. 3) STD screening: Accepted STD check for Gonorrhea and Chlamydia. 4) Follow up 03/2022 for Nexplanon removal Noemi Hughes APRN.CNM Referring Provider: SELF [[id number]] Allergies As of Date: 12/22/2021 Noted Allergy Reaction BETA BLOCKERS (BETA-BLOCKERS (BET*11/08/2012 15 - Contraindication-Medica l Randhawa* Comments: Avoid beta blockers as patient is on allergy immunotherapy CATS 08/17/2008 DOGS 08/17/2008 environmental [Other] 08/17/2008 GRASS POLLEN 10/08/2009 MOLD 10/08/2009 RAGWEED 10/08/2009 TREES 10/08/2009 Date Reviewed: 09/26/2020 Reviewed by: Omega Wallace RN - Fully Assessed Reason for Visit: Yearly Exam [187] Primary Visit Diagnosis:Encounter for gynecological examination (general) (routine) without abnormal findings [Z01.419] Other Visit Diagnoses:Screening for cervical cancer [Z12.4] Screen for STD (sexually transmitted disease) [Z11.3] Depression, unspecified depression type [F32.A] Order(s):P (more content not included)... Normal [facility] HPV W/GENOTYPE THIN PREPon 0 12-22-2021 HPV 16 Ag Ql (Unsp spec) Negative Normal Negative for HPV DNA high risk type 16 by PCR [facility] Comment on above: Order Comment: Speci men Type: FLUID SPECIMEN Ordering Facility: [facility] Address: [address] [place] [address] Performed By: #### L [id number], HPVHRT #### [facility] CLIA [id number] [address] [place] [address] [place] HPV 18 Ag Ql (Unsp spec) Negative Normal Negative for HPV DNA high risk type 18 by PCR [facility] Comment on above: Order Comment: Speci men Type: FLUID SPECIMEN Ordering Facility: [facility] Address: [address] [place] [address] Performed By: #### L [id number], HPVHRT #### [facility] CLIA [id number] [address] [place] [address] [place] HPV 31+33+35+39+45+51+52 +56+58+59+66+68 DNA MAIKOL+probe Ql (Cvx) Positive for one or more of the following HPV DNA high risk types:31,33,35,39,45,51 ,52,56,58,59,66,68 by PCR Abnormal Negative for HPV DNA high risk types: 31,33,35,39,45, 51,52,56,58,59, 66,68 by PCR. [facility] Comment on above: Order Comment: Speci men Type: FLUID SPECIMEN Ordering Facility: [facility] Address: [address] [place] [address] Performed By: #### L [id number], HPVHRT #### [facility] CLIA [id number] [address] [place] [address] [place] [facility] OF DAT PAP FLUID CERVICAL SCREENING on 12-22-2021 CASE REPORT Normal [facility] Comment on above: Order Comment: Speci men Type: FLUID SPECIMEN Ordering Facility: [facility] Address: [address] [place] [address] Result Comment: Gyne cologic Cytology Report Case: [id number] Authorizing Provider: Noemi Hughes APRN.CNM Collected: 12/22/2021 08:51 AM Ordering Location: OB/Gynecology Received: 12/22/2021 04:19 PM First Screen: Liset Mcintosh, CT, ASCP Pathologist: Luis John MD Specimen: Pap, Track Leader, Screening, CERVICAL SCREENING FLUID Performed By: #### L [id number], HPVHRT #### [facility] CLIA [id number] [address] [place] [address] [place] CLINICAL HISTORY ROUTINE EXAM Normal [facility] Comment on above: Order Comment: Speci men Type: FLUID SPECIMEN Ordering Facility: [facility] Address: [address] [place] [address] Performed By: #### L [id number], HPVHRT #### [facility] CLIA [id number] [address] [place] [address] STATES OF DAT CYTOLOGY INTERPRETATION PAP Abnormal [facility] Comment on above: Order Comment: Speci men Type: FLUID SPECIMEN Ordering Facility: [facility] Address: [address] [place] [address] Result Comment: Epit helial cell abnormality. Atypical squamous cells of undetermined significance (ASC-US) Performed By: #### L [id number], HPVHRT #### [facility] CLIA [id number] [address] [place] [address] [place] CYTOLOGY PAP OTHER INT Predominance of coccobacilli consistent with shift in vaginal mikey Normal [facility] Comment on above: Order Comment: Speci men Type: FLUID SPECIMEN Ordering Facility: [facility] Address: [address] [place] [address] Performed By: #### L [id number], HPVHRT #### [facility] CLIA [id number] [address] [place] [address] OF DAT FINAL DIAGNOSIS Normal [facility] Comment on above: Order Comment: Speci men Type: FLUID SPECIMEN Ordering Facility: [facility] Address: [address] [place] [address] Result Comment: A - CERVICAL SCREENING FLUID Satisfactory for interpretation Epithelial cell abnormality. Atypical squamous cells of undetermined significance (ASC-US) Predominance of coccobacilli consistent with shift in vaginal mikey Performed By: #### L [id number], HPVHRT #### [facility] CLIA [id number] [address] [place] [address] OF [facility] FINAL PERFORMING LAB Normal [facility] Comment on above: Order Comment: Speci men Type: FLUID SPECIMEN Ordering Facility: [facility] Address: [address] [place] [address] Result Comment: Tech nical component, safety technician screening performed at [facility], [address] [place] [address] CLIA# [id number] Diagnostic interpretation performed at [facility], [address] [place] [address] CLIA# [id number] Choir Teacher: Juarez Johnson M.D. Performed By: #### L [id number], HPVHRT #### [facility] CLIA [id number] [address] [place] [address] STATES OF DAT HPV REQUESTED? Yes, Reflex HPV for ASCUS Normal [facility] Comment on above: Order Comment: Speci men Type: FLUID SPECIMEN Ordering Facility: [facility] Address: [address] [place], [place] [address] Performed By: #### L [id number], HPVHRT #### [facility] CLIA [id number] [address] [place] [address] [place] LMP Implant Normal [facility] Comment on above: Order Comment: Speci men Type: FLUID SPECIMEN Ordering Facility: [facility] Address: [address] [place], [place] [address] Performed By: #### L [id number], HPVHRT #### [facility] CLIA [id number] [address] [place] [address] [place] PAP DISCLAIMER COMMENT The Pap Smear is a screening test for cervical cancer. False negative results occur with all screening tests, emphasizing the need for rescreening at recommended intervals, and clinical correlation. Normal [facility] Comment on above: Order Comment: Speci men Type: FLUID SPECIMEN Ordering Facility: [facility] Address: [address] [place], [place] [address] Performed By: #### L [id number], HPVHRT #### [facility] CLIA [id number] [address] [place] [address] STATES OF DAT PAP REGULATORY LEADER COMMENT This specimen has be en analyzed by the ThinPrep Imaging System, an automated imaging and review system, which assists the laboratory in evaluating cells on ThinPrep Pap tests. Following automated imaging, selected patrick from every slide are reviewed by a safety technician. Normal [facility] Comment on above: Order Comment: Speci men Type: FLUID SPECIMEN Ordering Facility: [facility] Address: [address] [place] [address] Performed By: #### L [id number], HPVHRT #### [facility] CLIA [id number] [address] [place] [address] STATES OF DAT T VAGINALIS AMPLIFICATIONon 09-13-2022 T. vaginalis DNA MAIKOL+probe Ql (Unsp spec) Negative Normal Negative for Trichomonas vaginalis by amplification [facility] Comment on above: Order Comment: Speci men Type: SWAB Ordering Facility: [facility] Address: [address] [place] [id number] Performed By: #### T RVAMP, [id number] #### [facility] CLIA [id number] [address] [place] [address] OF [facility] ALLIED HEALTHon 09-26-2020 ALLIED HEALTH HNO ID: [id number] Author: RT Aung(R) Service: Radiology Author Type: Rivet Hammer Machine Operator Type: Allied Health Filed: 09/26/2020 5:29 AM Note Text: Radiology Service Progress Note PATIENT NAME: Lorene Cross DATE OF SERVICE: September 26, 2020 TIME: 5:25 AM PATIENT IDENTITY VERIFICATION COMPLETED USING TWO (2) IDENTIFIERS: Name and Date of confirmed by patient verbally. FALL SCREENING: Has the patient had 2 falls in the last year or 1 fall with injury or currently using an Ambulatory Assistive Device (Walker, Cane, Wheelchair, Crutches, etc.)? Emergency Room Patient: Screened in ED PATIENT GENDER DATA: Female. status: : No status: NO. PATIENT RELEVANT IMPLANT DATA REVIEWED: Not Applicable RADIOLOGY DEPARTMENT: General X-ray: Exam(s) Completed: Chest X-Ray PERIPHERAL IV DATA: Not applicable SIGNED BY: RT Aung(R) September 26, 2020 5:25 AM Normal [facility] ED NOTEon 09-26-2020 ED NOTE HNO ID: [id number] Author: Omega Wallace RN Service: Emergency Medicine Author Type: Registered Nurse Type: ED Notes Filed: 09/26/2020 6:37 AM Note Text: Discharge instructions, follow up care and medications reviewed with patient. Patient expressed understanding. Patient ambulated out of ER with a steady gait. Normal [facility] ED NOTE HNO ID: [id number] Author: Omega Wallace RN Service: Emergency Medicine Author Type: Registered Nurse Type: ED Notes Filed: 09/26/2020 5:19 AM Note Text: Radiology at bedside Normal [facility] ED NOTE HNO ID: [id number] Author: Omega Wallace RN Service: Emergency Medicine Author Type: Registered Nurse Type: ED Notes Filed: 09/26/2020 4:48 AM Note Text: Patient placed on 2LPM nasal cannula to help with anxiety Normal [facility] ED NOTE HNO ID: [id number] Author: Omega Wallace RN Service: Emergency Medicine Author Type: Registered Nurse Type: ED Notes Filed: 09/26/2020 4:48 AM Note Text: RT at bedside giving treatments Normal [facility] ED NOTE HNO ID: [id number] Author: Abby Aceves RN Service: ? Author Type: Registered Nurse Type: ED Notes Filed: 09/26/2020 4:37 AM Note Text: Bed: 12-ED Expected date: Expected time: Means of arrival: Comments: Med 4: Asthma exacerbation Normal [facility] ED PROV NOTEon 09-26-2020 ED PROV NOTE HNO ID: [id number] Author: Irene Islas DO Service: Emergency Medicine Author Type: Physician Type: ED Provider Notes Filed: 10/03/2020 7:18 AM Note Text: ED Provider Note Patient Name: Lorene Cross SERVICE DATE: 09/26/20 History Patient presents with: Wheezing: Patient from home c/o of an asthma attack that has been going on for the past 4 hours. Patient states that it started suddenly while laying down. Attempted to use her rescue inhaler with no relief. Patient c/o chest tightness and a headache. Patient states that when she was youngerm, she went into cardiac arrest due to a severe asthma attack HPI 20-year-old female patient with past medical history of asthma presents with asthma attack that started approximately 4 hours ago. She states being over at her friend's house when asthma attack started. She has tried rescue inhaler without relief. She complains of chest tightness and headache. Unsure if she is ever been intubated but has not had an asthma attack in several years. Does not use inhaled steroids. Formerly used a nebulizer. Denies chest pain, fevers, chills. No new known allergies. Usually triggered by environmental exposures. Endorses cardiac arrest when she was approximately 8 years old from asthma attack. No known drug allergies. PAST MEDICAL HISTORY Diagnosis Date - Cardiac arrest (HCC) 8 yrs old Secondary to status asthmaticus- life flighted to [employer] - Contact dermatitis and other eczema, due to unspecified cause normal color vision - Unspecified asthma(493.90) PAST SURGICAL HISTORY Procedure Laterality Date - REMOVE TONSILS/ADENOIDS,<12 Y/O 11/12 FAMILY HISTORY Problem Relation Age of Onset - Heart Mother - Hypertension Mother - No Known Problems Father - No Known Problems Sister - No Known Problems Sister - Breast Cancer Maternal Aunt x 2 - Asthma Sister - No Known Problems Brother - No Known Problems Maternal Grandmother Social History Tobacco Use - Smoking status: Passive Smoke Exposure - Never Smoker - Smokeless tobacco: Never Used - Tobacco comment: outdoors mother Vaping Use - Vaping Use: Former Substance and Sexual Activity - Alcohol use: Yes Comment: Socially - Drug use: Not Currently - Sexual activity: Yes Partners: Female, Male control/protection: Condom ALLERGIES Allergen Reactions - Beta Blockers [Beta* Contraindication-Medica l Surgical Avoid beta blockers as patient is on allergy immunotherapy - Cats - Dogs - Environmental [Othe* - Grass Pollen - Mold - Ragweed - Trees Review of Systems Respiratory: Positive for chest tightness, shortness of breath and wheezing. Cardiovascular: Negative for chest pain, palpitations and leg swelling. Neurological: Positive for headaches. Physical Exam LMP 03/19/2019 Physical Exam Vitals and nursing note reviewed. Constitutional: General: She is in acute distress. Appearance: Normal appearance. She is well-developed. She is not toxic-appearing or diaphoretic. HENT: Head: Normocephalic and atraumatic. Nose: Nose normal. Mouth/Throat: Mouth: Mucous membranes are moist. Pharynx: Oropharynx is clear. Eyes: Extraocular Movements: Extraocular movements intact. Conjunctiva/sclera: Conjunctivae normal. Pupils: Pupils are equal, round, and reactive to light. Neck: Trachea: No tracheal deviation. Cardiovascular: Rate and Rhythm: Normal rate and regular rhythm. Pulses: Normal pulses. Heart sounds: Normal heart sounds. Pulmonary: Effort: Respiratory distress present. Breath sounds: No stridor. Wheezing present. No rales. Abdominal: General: Bowel sounds are normal. Palpations: Abdomen is soft. Tenderness: There is no abdominal tenderness. There is no guarding or rebound. Musculoskeletal: General: No deformity. Normal range of motion. Cervical back: Normal range of motion and neck supple. Skin: General: Skin is warm and dry. Capillary Refill: Capillary refill takes less than 2 seconds. Coloration: Skin is not pale. Neurological: Mental Status: She is alert and oriented to person, place, and time. Motor: No abnormal muscle tone. Coordination: Coordination normal. Diagnostic Testing ED Labs Ordered and Reviewed - No data to display Procedures ED Course / Clinical Impression ED Course as of Sep 26 07 Others' Documentation Fri Sep 26, 2020 0506 Attending Note I evaluated the patient and personally participated in the mcclelland components. I personally saw and examined the patient. I reviewed the resident's note. I agree with the resident's assessment and plan unless otherwise noted.I was present and personally supervised the mcclelland portions of the procedure. Old records were reviewed and pertinent information noted. HPI:20 yo female lakes[place] tin by EMS for asthma exacerbation, she was at a friends house and started to have asthma attack, she used her rescue inh (more content not included)... Normal [facility] XR CHEST 1V FRONTALon 2020 XR CHEST 1V FRONTAL * * *Final Report* * * DATE OF EXAM: Sep 26 2020 5:21AM [id number] - XR CHEST 1V FRONTAL / PROCEDURE REASON: Shortness of breath * * * * Physician Interpretation * * * * EXAMINATION: CHEST RADIOGRAPH (SINGLE VIEW AP OR PA) Clinical History: Shortness of breath Comparison: None available RESULT: Lines, tubes, and devices: N/A Lungs and pleura: No confluent infiltrate, large pleural effusion or pneumothorax. Cardiomediastinal silhouette: Within normal limits. Other: No acute bony abnormality identified. IMPRESSION: No significant acute radiographic abnormality. Railroad Signal Technician: PSCB Transcribe Date/Time: Sep 26 2020 5:22A Dictated by : NOLVIA CRISTOBAL MD This examination was interpreted and the report reviewed and electronically signed by: NOLVIA CRISTOBAL MD on Sep 26 2020 5:22AM EST [id number] Normal [facility] Vital Signs Date Time Vital Sign Value Performing Clinician Facility 03-06-2024 17:56-0500 Body temperature 98.06 [degF] DR JEAN-PAUL LOWERY DO [facility] 03-06-2024 17:56-0500 Diastolic Blood Pressure Non-Invasive 76 mm[Hg] DR JEAN-PAUL LOWERY DO [facility] 03-06-2024 17:56-0500 Heart rate 97 /min DR JEAN-PAUL LOWERY DO [facility] 03-06-2024 17:56-0500 Respiratory rate 16 /min DR JEAN-PAUL LOWERY DO [facility] 03-06-2024 17:56-0500 Systolic Blood Pressure Non-Invasive 120 mm[Hg] DR JEAN-PAUL LOWERY DO [facility] 02-16-2023 14:23-0500 Diastolic Blood Pressure Non-Invasive 77 1 GOLDIE BISHOP MD [facility] 02-16-2023 14:23-0500 Heart rate 81 /min GOLDIE BISHOP MD [facility] 02-16-2023 14:23-0500 Reason For Taking VItal Signs GOLDIE BISHOP MD [facility] 02-16-2023 14:23-0500 Respiratory rate 16 /min GOLDIE BISHOP MD [facility] 02-16-2023 14:23-0500 Systolic Blood Pressure Non-Invasive 112 1 GOLDIE BISHOP MD [facility] 02-16-2023 12:37-0500 Body temperature 98.78 [degF] GOLDIE BISHOP MD [facility] 02-16-2023 12:37-0500 Body weight 55.7 kg GOLDIE BISHOP MD [facility] 02-16-2023 12:37-0500 Diastolic Blood Pressure Non-Invasive 71 1 GOLDIE BISHOP MD [facility] 02-16-2023 12:37-0500 Heart rate 104 /min GOLDIE BISHOP MD [facility] 02-16-2023 12:37-0500 Respiratory rate 20 /min GOLDIE BISHOP MD [facility] 02-16-2023 12:37-0500 Systolic Blood Pressure Non-Invasive 132 1 GOLDIE BISHOP MD [facility] 12-30-2022 10:47-0400 Blood Pressure Location RESHMA REICHFIELD DO [facility] 12-30-2022 10:47-0400 Blood Pressure Method RESHMA REICHFIELD D O [facility] 12-30-2022 10:47-0400 Body temperature 97.7 [degF] RESHMA REICHFIELD DO [facility] 12-30-2022 10:47-0400 Diastolic Blood Pressure Non-Invasive 61 1 RESHMA REICHFIELD DO [facility] 12-30-2022 10:47-0400 Heart rate 91 /min RESHMA REICHFIELD DO [facility] 12-30-2022 10:47-0400 Respiratory rate 18 /min RESHMA REICHFIELD DO [facility] 12-30-2022 10:47-0400 Systolic Blood Pressure Non-Invasive 103 1 RESHMA REICHFIELD DO [facility] 11-01-2022 10:16-0400 Diastolic blood pressure 55 mm[Hg] [facility] 11-01-2022 10:16-0400 Heart rate 63 /min [facility] 11-01-2022 10:16-0400 Respiratory rate 16 /min [facility] 11-01-2022 10:16-0400 SaO2% (BldA) [Mass fraction] 98 % [facility] 11-01-2022 10:16-0400 Systolic blood pressure 97 mm[Hg] [facility] 11-01-2022 00:38-0400 Body height 162.56 cm [facility] 11-01-2022 00:38-0400 Body mass index (BMI) [Ratio] 21.2 kg/m2 [facility] 11-01-2022 00:38-0400 Body temperature 98.8 [degF] [facility] 11-01-2022 00:38-0400 Body weight 55.97 kg [facility] 12-29-2021 09:10-0400 Body weight 54.25 kg Noemi Hughes APRN.CNM Work Phone: [facility] 12-29-2021 09:10-0400 Diastolic blood pressure 62 mm[Hg] Noemi Hughes UNDERGROUND MINING SECTION FOREMAN.CNM Work Phone: [facility] 12-29-2021 09:10-0400 Systolic blood pressure 102 mm[Hg] Noemi Hughes UNDERGROUND MINING SECTION FOREMAN.CNM Work Phone: [facility] 12-23-2021 16:41-0400 Diastolic blood pressure 63 mm[Hg] GOLDIE BISHOP MD [facility] 12-23-2021 16:41-0400 Heart rate 111 /min GOLDIE BISHOP MD [facility] 12-23-2021 16:41-0400 Respiratory rate 16 /min GOLDIE BISHOP MD [facility] 12-23-2021 16:41-0400 Systolic blood pressure 114 mm[Hg] GOLDIE BISHOP MD [facility] 12-23-2021 15:46-0400 Body temperature 98.96 [degF] GOLDIE BISHOP MD [facility] 12-23-2021 15:46-0400 Diastolic blood pressure 68 mm[Hg] GOLDIE BISHOP MD [facility] 12-23-2021 15:46-0400 Heart rate 117 /min GOLDIE BISHOP MD [facility] 12-23-2021 15:46-0400 Respiratory rate 28 /min GOLDIE BISHOP MD [facility] 12-23-2021 15:46-0400 Systolic blood pressure 107 mm[Hg] GOLDIE BISHOP MD [facility] 12-22-2021 08:17-0400 Body height 164.5 cm Noemi Plotts UNDERGROUND MINING SECTION FOREMAN.CNM Work Phone: [facility] 12-22-2021 08:17-0400 Body weight 53.98 kg Noemi Plotts UNDERGROUND MINING SECTION FOREMAN.CNM Work Phone: [facility] 12-22-2021 08:17-0400 Diastolic blood pressure 62 mm[Hg] Noemi Plotts UNDERGROUND MINING SECTION FOREMAN.CNM Work Phone: [facility] 12-22-2021 08:17-0400 Systolic blood pressure 102 mm[Hg] Noemi Plotts UNDERGROUND MINING SECTION FOREMAN.CNM Work Phone: [facility] Encounters Encounter Date Encounter Type Care Provider Facility Start: 03-21-2024 End: 03-21-2024 Emergency department patient visit NONE PHYSICIAN Facility:[facility] Start: 03-06-2024 End: 03-06-2024 Emergency department patient visit DR JEAN-PAUL LOWERY DO [facility] Start: 02-16-2023 End: 02-16-2023 Emergency department patient visit GOLDIE BISHOP MD Facility:[facility] Start: 02-16-2023 End: 02-16-2023 Emergency department patient visit GOLDIE BISHOP MD [facility] Start: 02-01-2023 Refill Suyapa Jonas MD Work Phone: OB/Gynecology Comment on above: Refill Request Start: 01-31-2023 End: 01-31-2023 Emergency department patient visit GOLDIE BISHOP MD Facility:[facility] Start: 01-31-2023 End: 01-31-2023 Emergency department patient visit GOLDIE BISHOP MD [facility] Start: 12-30-2022 ambulatory Noemi lacy UNDERGROUND MINING SECTION FOREMAN.CNM Work Phone: OB/Gynecology Comment on above: Question regarding H PV W/GENOTYPE THIN PREP Start: 12-30-2022 End: 12-30-2022 Emergency department patient visit RESHMA VAZQUEZ DO Facility:[facility] Start: 12-30-2022 End: 12-30-2022 Emergency department patient visit [facility] Start: 11-01-2022 End: 11-01-2022 [facility] Start: 11-01-2022 End: 11-01-2022 Emergency department patient visit [facility] Work Phone: Start: 12-29-2021 End: 12-29-2021 ambulatory NOEMI HUGHES Facility:[facility] Start: 12-29-2021 End: 12-29-2021 Patient encounter procedure Noemi Hughes UNDERGROUND MINING SECTION FOREMAN.CNM Work Phone: OB/Gynecology Comment on above: Encounter for gyneco logical examination (general) (routine) without abnormal findings (Primary Dx) Start: 12-29-2021 End: 12-29-2021 Patient encounter status Noemi Hughes UNDERGROUND MINING SECTION FOREMAN.CNM Work Phone: OB/Gynecology Start: 12-23-2021 End: 12-23-2021 Emergency department patient visit GOLDIE BISHOP MD [facility] Start: 12-22-2021 End: 12-22-2021 ambulatory NOEMIMARIANO HUGHES Facility:[facility] Start: 12-22-2021 End: 12-22-2021 Patient encounter procedure Noemi Hughes UNDERGROUND MINING SECTION FOREMAN.CNM Work Phone: OB/Gynecology Comment on above: Encounter for gyneco logical examination (general) (routine) without abnormal findings (Primary Dx); Screening for cervical cancer; Screen for STD (sexually transmitted disease); Depression, unspecified depression type Start: 12-22-2021 End: 12-22-2021 Patient encounter status Noemi Hughes UNDERGROUND MINING SECTION FOREMAN.CNM Work Phone: OB/Gynecology Procedures Date Procedure Procedure Detail Performing Clinician Start: 11-01-2022 Viral antigen assay Start: 01-12-2017 Adult depression scr eening assessment Noemi Hughes UNDERGROUND MINING SECTION FOREMAN.CNM Work Phone: Tonsillectomy GOLDIE LAGUNA MD Plan of Treatment Date Care Activity Detail Author Start: 12-22-2024 Pap Testing Pap Testing [facility] Start: 12-22-2022 CHLAMYDIA SCREENING (18-24) CHLAMYDIA SCREENING (18-24) [facility] Start: 12-22-2022 GC (GONORRHEA) SCREE ESTEFANY (18-24) GC (GONORRHEA) SCREENING (18-24) [facility] Start: 12-10-2022 Influenza vaccination Influenza Vacc ine (#1) [facility] Start: 11-01-2022 Suicide precautions [facility] Start: 12-22-2021 End: 02-21-2022 25-hydroxyvitamin D3 [Mass/volume] in Serum or Plasma VITAMIN D 25 HYDROXY Lab Routine Depression, unspecified depression type Expected: 12/22/2021, Expires: 02/21/2022 [facility] Work Phone: Comment on above: Expected: 12/22/2021 , Expires: 02/21/2022 Start: 12-10-2021 Influenza vaccination INFLUENZA (#1) [facility] Start: 10-26-2021 Urine microalbumin profile [facility] Start: 2021 PAP TESTING PAP TESTING [facility] Start: 04-19-2019 ANNUAL PCP TEAM APPRENTICE TRISTIAN DISEASE VISIT ANNUAL PCP TEAM CHRONIC DISEASE VISIT [facility] Start: 04-19-2019 CHLAMYDIA SCREENING (18-24) CHLAMYDIA SCREENING (18-24) [facility] Start: 04-19-2019 GC (GONORRHEA) SCREE ESTEFANY (18-24) GC (GONORRHEA) SCREENING (18-24) [facility] Start: 2018 HEPATITIS C SCREENING HEPATITIS C SC REENING [facility] Start: 2018 HIV SCREENING HIV SCREENING [facility] Start: 01-12-2018 Adult depression screening assessment DEPRESSION SCREENING [facility] Start: 2016 Meningococcal B Vacc ine: Consider Based On Risk (1 of 2 - Patient Seeks Protection) Meningococcal B Vaccine: Consider Based On Risk (1 of 2 - Patient Seeks Protection) [facility] Start: 02-13-2015 ASTHMA CONTROL TEST ASTHMA CONTROL T EST [facility] Start: 2014 PEDS TO ADULT TRANSI TION ANNUAL ASSESSMENT PEDS TO ADULT TRANSITION ANNUAL ASSESSMENT [facility] Start: 2012 PEDS TO ADULT TRANSI TION INITIAL DISCUSSION PEDS TO ADULT TRANSITION INITIAL DISCUSSION [facility] Start: 2010 MENINGOCOCCAL B: Consider based on risk (1 of 2 - Risk Bexsero 2-dose series) MENINGOCOCCAL B: Consider based on risk (1 of 2 - Risk Bexsero 2-dose series) [facility] Start: 2006 PNEUMOCOCCAL (1 - PCV) PNEUMOCOCCAL (1 - PCV) [facility] Start: 2006 Pneumococcal vaccination Pneum ococcal Vaccine (1 - PCV) [facility] Start: 2002 ASTHMA ACTION PLAN ASTHMA ACTION SOHAIL N [facility] Start: 2000 COVID-19 VACCINE (#1) COVID-19 VACCI NE (#1) [facility] Chlamydia trachomatis+Neisseria gonorrhoeae DNA [Presence] in Unspecified specimen by MAIKOL with probe detection GC/CHLAMYDIA DNA DET Lab Routine Encounter for gynecological examination (general) (routine) without abnormal findings Screen for STD (sexually transmitted disease) Ordered: 12/22/2021 [facility] Work Phone: Comment on above: Ordered: 12/22/2021 NEXPLANON REMOVAL NEXPLANON JACK JENNY Procedures Routine Encounter for gynecological examination (general) (routine) without abnormal findings Ordered: 12/22/2021 [facility] Work Phone: Comment on above: Ordered: 12/22/2021 PAP FLUID CERVICAL SCREENING PAP FLUID CERVICAL SCREENING Lab Routine Encounter for gynecological examination (general) (routine) without abnormal findings Screening for cervical cancer Ordered: 12/22/2021 [facility] Work Phone: Comment on above: Ordered: 12/22/2021 Patient referral [facility] Work Phone: T VAGINALIS AMPLIFICATION T VAGINALIS AMPLIFICATION Lab Routine Encounter for gynecological examination (general) (routine) without abnormal findings Screen for STD (sexually transmitted disease) Ordered: 12/22/2021 [facility] Work Phone: Comment on above: Ordered: 12/22/2021 [facility] Immunizations Immunization Date Immunization Notes Care Provider Maya hitchcock 01-12-2017 influenza, injectabl e, quadrivalent, preservative free Noemi Hughes APRN.KARLENE Work Phone: [facility] 01-12-2017 meningococcal polysaccharide (groups A, C, Y and W-135) diphtheria toxoid conjugate vaccine (MCV4P) Noemi Hughes UNDERGROUND MINING SECTION FOREMAN.KARLENE Work Phone: [facility] 01-12-2017 influenza virus vaccine, unspecified formulation Noemi Hughes UNDERGROUND MINING SECTION FOREMAN.KARLENE Work Phone: [facility] 01-13-2016 influenza, injectabl e, quadrivalent, contains preservative Noemi Hughes UNDERGROUND MINING SECTION FOREMAN.KARLENE Work Phone: [facility] Work Phone: 11-05-2013 human papilloma viru s vaccine, quadrivalent Noemi Plotts UNDERGROUND MINING SECTION FOREMAN.CNM Work Phone: [facility] Work Phone: 04-12-2013 human papilloma viru s vaccine, quadrivalent Noemi Plotts UNDERGROUND MINING SECTION FOREMAN.CNM Work Phone: [facility] Work Phone: 02-17-2013 influenza virus vaccine, unspecified formulation Noemi Plotts UNDERGROUND MINING SECTION FOREMAN.CNM Work Phone: [facility] 11-03-2012 human papilloma viru s vaccine, quadrivalent Noemi Plotts UNDERGROUND MINING SECTION FOREMAN.CNM Work Phone: [facility] 11-03-2012 Meningococcal, MCV4, unspecified conjugate formulation(groups A, C, Y and W-135) Noemi Plotts UNDERGROUND MINING SECTION FOREMAN.CNM Work Phone: [facility] 01-21-2012 influenza virus vaccine, unspecified formulation Noemi Plotts UNDERGROUND MINING SECTION FOREMAN.CNM Work Phone: [facility] 10-27-2011 tetanus toxoid, redu donovan diphtheria toxoid, and acellular pertussis vaccine, adsorbed Noemi Plotts UNDERGROUND MINING SECTION FOREMAN.CNM Work Phone: [facility] 10-27-2011 varicella virus vaccine Cour mariannamejia Plotts UNDERGROUND MINING SECTION FOREMAN.CNM Work Phone: [facility] 01-04-2009 influenza virus vaccine, unspecified formulation Noemi Plotts UNDERGROUND MINING SECTION FOREMAN.CNM Work Phone: [facility] Work Phone: 02-22-2008 influenza virus vaccine, unspecified formulation Noemi Plotts UNDERGROUND MINING SECTION FOREMAN.CNM Work Phone: [facility] Work Phone: 02-08-2007 influenza virus vaccine, unspecified formulation Noemi Plotts UNDERGROUND MINING SECTION FOREMAN.CNM Work Phone: [facility] Work Phone: 12-23-2005 diphtheria, tetanus toxoids and acellular pertussis vaccine Noemi Plotts UNDERGROUND MINING SECTION FOREMAN.CNM Work Phone: [facility] Work Phone: 12-23-2005 measles, mumps and rubella virus vaccine Noemi Saucedots UNDERGROUND MINING SECTION FOREMAN.CNM Work Phone: [facility] Work Phone: 12-23-2005 poliovirus vaccine, inactivated Noemi Hughes UNDERGROUND MINING SECTION FOREMAN.CNM Work Phone: [facility] Work Phone: 12-31-2003 hepatitis B vaccine, pediatric or pediatric/adolescent dosage Noemi Hughes UNDERGROUND MINING SECTION FOREMAN.CNM Work Phone: [facility] Work Phone: 08-02-2002 diphtheria, tetanus toxoids and acellular pertussis vaccine Noemi Saucedots UNDERGROUND MINING SECTION FOREMAN.CNM Work Phone: [facility] Work Phone: 08-02-2002 haemophilus influenz ae type b vaccine, HbOC conjugate Noemi Hughes UNDERGROUND MINING SECTION FOREMAN.CNM Work Phone: [facility] Work Phone: 08-02-2002 pneumococcal conjuga te vaccine, 7 valent Noemi Hughes UNDERGROUND MINING SECTION FOREMAN.CNM Work Phone: [facility] Work Phone: 11-14-2001 diphtheria, tetanus toxoids and acellular pertussis vaccine Noemi Hughes UNDERGROUND MINING SECTION FOREMAN.CNM Work Phone: [facility] Work Phone: 11-14-2001 haemophilus influenz ae type b vaccine, HbOC conjugate Noemi Saucedots UNDERGROUND MINING SECTION FOREMAN.CNM Work Phone: [facility] Work Phone: 11-14-2001 poliovirus vaccine, inactivated Noemi Saucedots UNDERGROUND MINING SECTION FOREMAN.CNM Work Phone: [facility] Work Phone: 11-14-2001 varicella virus vaccine Cour mariannamejia Saucedots UNDERGROUND MINING SECTION FOREMAN.CNM Work Phone: [facility] Work Phone: 06-23-2001 diphtheria, tetanus toxoids and acellular pertussis vaccine Noemi Plotts UNDERGROUND MINING SECTION FOREMAN.CNM Work Phone: [facility] Work Phone: 06-23-2001 haemophilus influenz ae type b vaccine, HbOC conjugate Noemi Plotts UNDERGROUND MINING SECTION FOREMAN.CNM Work Phone: [facility] Work Phone: 06-23-2001 hepatitis B vaccine, pediatric or pediatric/adolescent dosage Noemi Plotts UNDERGROUND MINING SECTION FOREMAN.CNM Work Phone: [facility] Work Phone: 06-23-2001 measles, mumps and rubella virus vaccine Noemi Plotts UNDERGROUND MINING SECTION FOREMAN.CNM Work Phone: [facility] Work Phone: 2000 poliovirus vaccine, inactivated Noemi Plotts UNDERGROUND MINING SECTION FOREMAN.CNM Work Phone: [facility] Work Phone: 2000 diphtheria, tetanus toxoids and acellular pertussis vaccine Noemi Plotts UNDERGROUND MINING SECTION FOREMAN.CNM Work Phone: [facility] Work Phone: 2000 haemophilus influenz ae type b vaccine, HbOC conjugate Noemi Plotts UNDERGROUND MINING SECTION FOREMAN.CNM Work Phone: [facility] Work Phone: 2000 pneumococcal conjuga te vaccine, 7 valent Noemi Plotts UNDERGROUND MINING SECTION FOREMAN.CNM Work Phone: [facility] Work Phone: 2000 poliovirus vaccine, inactivated Noemi Plotts UNDERGROUND MINING SECTION FOREMAN.CNM Work Phone: [facility] Work Phone: 2000 hepatitis B vaccine, pediatric or pediatric/adolescent dosage Noemi Plotts UNDERGROUND MINING SECTION FOREMAN.CNM Work Phone: [facility] Work Phone: NEGATED: Highlighted row has not occurred!10-12-2012 human papilloma virus vaccine, quadrivalent Noemi Hughes UNDERGROUND MINING SECTION FOREMAN.CNM Work Phone: [facility] Payers Date Payer Category Payer Medicaid [id number] 77 [id number] 2022 Self-pay [id number] 2007 Medicaid [id number] 2007 Medicaid [id number] 2000 Unknown [id number] 2000 Unknown [id number] 2000 Unknown [id number] [id number] 2000 Unknown [id number] 2000 Unknown [id number] [id number] Unknown [id number] Social History Date Type Detail Facility Start: 04-19-2018 End: 12-29-2021 Tobacco smoking status NHIS Never smoked tobacco [facility] History of tobacco use Passive smoker [facility] Start: 04-19-2018 End: 12-29-2021 Tobacco use and exposure Smokeless tobacco non-user [facility] Start: 12-22-2021 End: 01-12-2022 Alcohol intake Current drinker of alcohol (finding) [facility] Start: 03-20-2019 History SDOH Alcohol Comment Socially [facility] Start: 04-19-2018 End: 12-29-2021 Tobacco Comment outdoors mother [facility] Start: 2000 Sex Assigned At Not on file [facility] Start: 12-12-2021 End: 12-22-2021 Exposure to SARS-CoV-2 (event) Not sure [facility] Tobacco Nicotine Use: Va ping Product in Last 90 Days. Type: Cigarettes. [facility] Sex Assigned At Sex [facility] Start: 11-01-2022 Tobacco smoking status NHIS Unknown if ever smoked [facility] Start: 12-20-2018 [facility] Start: 2000 Sex Assigned At Female [facility] Start: 01-12-2022 End: 12-23-2022 History of Social function [facility] Start: 01-12-2022 End: 12-23-2022 Tobacco use panel [facility] National Score (1-100), lower number is lower risk 60 [facility] NEGATED: Highlighted row [facility] Functional Status Date Assessment Result Facility 03-06-2024 Functional Status ID band on, Call device within reach, Bed in low position, Wheels locked, Phone within reach, personal items within reach, Safety level maintained [facility] 02-16-2023 Functional Status Standard Safet y ID band on, Call device within reach, Bed in low position, Wheels locked, Bedside Cart Locked, Safety level maintained [facility] 02-16-2023 Functional Status [facility] 12-30-2022 Functional Status Independent [facility] 12-30-2022 Functional Status ID band on, Call device within reach, Bed in low position, Wheels locked, Upper/Half-Length side-rails up, Visitor at bedside [facility] 12-23-2021 Functional Status ID band on, Call device within reach, Bed in low position, Wheels locked, Upper/Half-Length side-rails up, Bedside Cart Locked, Visitor at bedside, Safety level maintained [facility] Mental Status Date Assessment Result Facility 03-06-2024 Mental Status Oriented x 4 [facility] 02-16-2023 Mental Status Oriented x 4 [facility] 02-16-2023 Mental Status [facility] 12-30-2022 Mental Status Orientation Oriented x 4 [facility] 12-30-2022 Mental Status [facility] 12-23-2021 Mental Status Orientation Oriented x 4 [facility] Clinical Notes 01-20-2007 to 03-06-2024 Note Date & Type Note Facility 03-06-2024 Hospital Discharge instructions Patient Education 03/06/2024 18:29:49 URI, Viral W/ Wheezing (Adult) Viral Upper Respiratory Illness with Wheezing (Adult) You have a viral upper respiratory illness (URI), which is another term for the common cold. When the infection causes a lot of irritation, the air passages can go into spasm. This causes wheezing and shortness of breath. This illness is contagious during the first few days. It is spread through the air by coughing and sneezing. It may also be spread by direct contact. This could be by touching the sick person and then touching your own eyes, nose, or mouth. Frequent handwashing will decrease the risk. Most viral illnesses go away within 7 to 10 days with rest and simple home remedies. Sometimes the illness may last for several weeks. Antibiotics will not kill a virus, and they are generally not prescribed for this condition. Home care If symptoms are severe, rest at home for the first 2 to 3 days. When you resume activity, don't let yourself get too tired. If you smoke, stop. Ask your healthcare provider if you need help. Stay away from secondhand cigarette smoke. Don't let people smoke in your house or car. You may use acetaminophen or ibuprofen to control pain and fever, unless another medicine was prescribed. Take the medicine only as directed on the label. If you have chronic liver or kidney disease, have ever had a stomach ulcer or gastrointestinal bleeding, or are taking blood-thinning medicines, talk with your healthcare provider before using these medicines. Aspirin should never be given to anyone under 18 years of age who is ill with a viral infection or fever. It may cause severe liver or brain damage. Your appetite may be poor, so a light diet is fine. Stay well hydrated by drinking 6 to 8 glasses of fluids per day (water, soft drinks, juices, tea, or soup). Extra fluids will help loosen secretions in the nose and lungs. Jgcj-aai-nzagabt cold medicines will not shorten the length of time you re sick, but they may be helpful for the following symptoms: cough, sore throat, and nasal and sinus congestion. Ask your healthcare provider or pharmacist which rago-vgs-uwcytxe medicine to use. Don't use decongestants if you have high blood pressure. Follow-up care Follow up with your healthcare provider, or as advised. When to seek medical advice Call your healthcare provider right away if any of these occur: Cough with lots of colored sputum (mucus) Severe headache; face, neck, or ear pain Difficulty swallowing due to throat pain Fever of 100.4 F (38 C) or higher, or as directed by your healthcare provider Call 911 Call 911 if any of these occur: Chest pain, shortness of breath, worsening wheezing, or difficulty breathing Coughing up blood Very severe pain when swallowing, especially if it goes along with a muffled voice [id number] [employer]. [address] [place] [address]. All rights reserved. This information is not intended as a substitute for professional medical care. Always follow your healthcare professional's instructions. Follow Up Care 03/06/2024 17:43:34 With:SRINATH PUGH DO Address: [address] [place] [id number] [phone] When:2-4 days [facility] 03-06-2024 Emergency department Discharge summary Discharge Instructions Thank you for allowing [facility] to assist you with your healthcare needs. The following is important discharge information regarding your hospital visit. Diagnosis from Today's Visit Viral URI What to Do Next Instructions from Your Care Team Discharge Return to Work, School, or Sports (Return to Work, School, or Sports) - Ordered -- 03/05/24, 03/08/24, May return to: work, 03/06/24 18:42:00 EST Post Acute Orders No qualifying data available. You Need to Schedule the Following Appointments Follow Up with SRINATH PUGH DO When:Within 2-4 days Where:[address] [place] [phone] Allergies NKA Medications Please ask your primary doctor or pharmacist before taking any other medication not listed, including over the counter drugs, herbal medications, vitamins and or supplements as they may interact with your home medications. What How Much When Instructions Last Dose New guaiFENesin (Mucinex 600 mg oral tablet, extended release) 1 tab(s) by mouth Every 12 hours Duration: 7 Days Printed Prescription New predniSONE (predniSONE 20 mg oral tablet) 1 tab(s) by mouth Two (2) times a day Duration: 3 Days Printed Prescription Changed albuterol (albuterol MDI (90 mcg/ inh) CFC free inhalation aerosol) 2 puff(s) by inhalation Every 4 hours as needed for for wheezing Changed albuterol (albuterol MDI (90 mcg/ inh) CFC free inhalation aerosol) 2 puff(s) by inhalation Every 4 hours as needed for as needed for wheezing Printed Prescription Unchanged ARIPiprazole (ARIPiprazole 5 mg oral tablet) 1 tab(s) by mouth Once a day Unchanged cetirizine (cetirizine 10 mg oral tablet) TAKE 1 TABLET BY MOUTH EVERY DAY NEEDED Unchanged cetirizine (ZyrTEC) Once a day Unchanged hydrOXYzine (Vistaril 50 mg oral capsule) 1 cap by mouth Four (4) times a day as needed for as needed for anxiety Unchanged traZODone (traZODone 50 mg oral tablet) 1 tab(s) by mouth Daily at bedtime Please take this list to your next doctor s visit. Bring all medications you take, including over the counter medications, herbals and other supplements with you to your doctor s visit. Patients and families are reminded to discard old lists and to update any records with all medication providers or retail pharmacies. Education Materials Viral Upper Respiratory Illness with Wheezing (Adult) You have a viral upper respiratory illness (URI), which is another term for the common cold. When the infection causes a lot of irritation, the air passages can go into spasm. This causes wheezing and shortness of breath. This illness is contagious during the first few days. It is spread through the air by coughing and sneezing. It may also be spread by direct contact. This could be by touching the sick person and then touching your own eyes, nose, or mouth. Frequent handwashing will decrease the risk. Most viral illnesses go away within 7 to 10 days with rest and simple home remedies. Sometimes the illness may last for several weeks. Antibiotics will not kill a virus, and they are generally not prescribed for this condition. Home care If symptoms are severe, rest at home for the first 2 to 3 days. When you resume activity, don't let yourself get too tired. If you smoke, stop. Ask your healthcare provider if you need help. Stay away from secondhand cigarette smoke. Don't let people smoke in your house or car. You may use acetaminophen or ibuprofen to control pain and fever, unless another medicine was prescribed. Take the medicine only as directed on the label. If you have chronic liver or kidney disease, have ever had a stomach ulcer or gastrointestinal bleeding, or are taking blood-thinning medicines, talk with your healthcare provider before using these medicines. Aspirin should never be given to anyone under 18 years of age who is ill with a viral infection or fever. It may cause severe liver or brain damage. Your appetite may be poor, so a light diet is fine. Stay well hydrated by drinking 6 to 8 glasses of fluids per day (water, soft drinks, juices, tea, or soup). Extra fluids will help loosen secretions in the nose and lungs. Miic-kah-yutjczq cold medicines will not shorten the length of time you re sick, but they may be helpful for the following symptoms: cough, sore throat, and nasal and sinus congestion. Ask your healthcare provider or pharmacist which vezh-bwd-xogshsm medicine to use. Don't use decongestants if you have high blood pressure. Follow-up care Follow up with your healthcare provider, or as advised. When to seek medical advice Call your healthcare provider right away if any of these occur: Cough with lots of colored sputum (mucus) Severe headache; face, neck, or ear pain Difficulty swallowing due to throat pain Fever of 100.4 F (38 C) or higher, or as directed by your healthcare provider Call 911 Call 911 if any of these occur: Chest pain, shortness of breath, worsening wheezing, or difficulty breathing Coughing up blood Very severe pain when swallowing, especially if it goes along with a muffled voice [phone] [employer]. [address] [place] [address], [place] [address]. All rights reserved. This information is not intended as a substitute for professional medical care. Always follow your healthcare professional's instructions. Additional Information VACCINATE! IT SAVES LIVES! Members of the community who have not yet received the COVID-19 vaccine and would like to receive it can visit one of [facility] vaccine clinics. There are many vaccine clinic locations within the [facility]. For locations and available times, please visit [email or web address] It is important to note that some COVID mobile vaccine clinics are held outdoors and may be canceled in rainy or stormy conditions. To learn more about pediatric vaccinations (ages 5-11), we invite you to visit the [employer] webpage. [email or web address]/p [email or web address]-Fyqkwxmtrbw-Freq xqsece-Cvguv-Epdkxiiaa.html To learn more about the COVID-19 vaccine, we invite you to visit the CDC website for a list of frequently asked questions. https://www.cdc.gov/coronavirus/ 2019-ncov/vaccines/faq.html [employer] Patient Portal Access Instructions: Stay connected with your healthcare team and access your personal medical information anytime with the [employer] [facility] Patient Portal. If you would like a full copy of your medical records please contact the [facility] Medical Records Department Tuesday through Tuesday between 8a.m. and 4:30p.m. Please follow the directions below to access the portal: 1.Access the email account you provided upon registration to the hospital.2.Look for an invitation email from [facility].3.Open the email and access the invitation link: Accept Invitation to [facility]4.Fill in the required patrick to create your account. Sign into www.[employer] with your username and password that you created in the above steps to stay up to date. You can then view a summary of results, a summary of your visits, and the ability to download your summaries to your computer or send the information securely to a physician. Remember that your healthcare information is confidential, so carefully consider who you will allow to register on the [facility] [facility] Patient Portal for access to your information. You can also access the [facility] Patient Portal on the [employer]. Simply click on Health Records under Health Data and then click on the [employer] logo. HOW TO SAFELY DISPOSE OF PRESCRIPTION MEDICATIONS Please use one of the following methods to safely dispose of your unused medications. 1.Use a drug disposal kit: the drug disposal pouch allows you to safely discard your old and unused drugs. Ask your nurse to give you one when you are discharged.2.Visit a local take-back location: Many local pharmacies and police departments have programs that collect old and unwanted prescription drugs. Call your local pharmacy or go to http://[employer]/8Z5Cm9f to find one close to you.3.Make use of household items: Use cat litter or old coffee grounds to dispose medications if other options are not available. Mix your drugs with these household products, seal them in an airtight container and throw it into the garbage. Call [facility]: [phone] to be sure your drugs can be disposed of in this way. Some medicines may require a different approach.4.Never flush your medications down the toilet. IF YOU HAVE BEEN PRESCRIBED AN OPIOIDS FOR PAIN If you have been prescribed an opioid (such as hydrocodone, oxycodone or morphine), it is critical to understand the possible side effects and risks of opioid pain medications. Even when taken as directed, opioids can have several side effects including: Tolerance, meaning you might need to take more of a medication for the same pain relief. Nausea, vomiting and/or constipation. Sleepiness, dizziness, dry mouth, confusion, depression or itching. Physical dependence, meaning you have withdrawal symptoms when a medication is stopped ? this can develop within a few days. KNOW YOUR RESPONSIBILITIES It is important to know exactly how much and how often to take the opioid pain medications you are prescribed. Never take opioids in higher amounts or more often than prescribed. Do not combine opioids with alcohol or other drugs that cause drowsiness, such as benzodiazepines, also known as benzos, including diazepam and alprazolam, muscle relaxants or sleep aids. Never sell or share prescription opioids. This is illegal. Store opioids in a secure place and out of reach of others (including children, family, friends and visitors). The last page(s) of this document has been signed and retained as a CHART COPY Signatures Patient Education Materials URI, Viral W/ Wheezing (Adult) Medication Leaflets My discharge plan and instructions have been reviewed and explained to me and I,LORENE CROSS understand my current condition and have read and understand these discharge instructions. I have received a written copy of the plan/instructions. If I have questions, I am aware that I should contact my doctor. Patient/Steamfitter Signature: Date/Time: Relationship to Patient: Witness Name/Signature: Date/Time: [facility] 02-17-2023 Note . MICRO - Microbiology PROCEDURE: Urine Culture [*1] SOURCE: Urine BODY SITE: COLLECTED DATE/TIME: 02/16/2023 13:12 EST RECEIVED DATE/TIME: 02/16/2023 19:30 EST START DATE/TIME: 02/16/2023 19:30 EST FREE TEXT SOURCE: FINAL REPORTS Final Report [] Verified Date/Time/Personnel: 02/17/2023 14:27 EST <10,000 cfu/ml. No Significant growth. Sensitivity not indicated. Performing Locations *1: This test was performed at: [facility], [address] [place] [address], [facility] , [facility] ([place]) 02-16-2023 Hospital Discharge instructions Patient Education 02/16/2023 14:06:39 Viral Syndrome (Adult) Viral Syndrome (Adult) A viral illness may cause a number of symptoms such as fever. Other symptoms depend on the part of the body that the virus affects. If it settles in your nose, throat, and lungs, it may cause cough, sore throat, congestion, runny nose, headache, earache and other ear symptoms, or shortness of breath. If it settles in your stomach and intestinal tract, it may cause nausea, vomiting, cramping, and diarrhea. Sometimes it causes generalized symptoms like aching all over, feeling tired, loss of energy, or loss of appetite. A viral illness usually lasts anywhere from several days to several weeks, but sometimes it lasts longer. In some cases, a more serious infection can look like a viral syndrome in the first few days of the illness. You may need another exam and additional tests to know the difference. Watch for the warning signs listed below for when to seek medical advice. Home care Follow these guidelines for taking care of yourself at home: If symptoms are severe, rest at home for the first 2 to 3 days. Stay away from cigarette smoke - both your smoke and the smoke from others. You may use jedk-fcg-cypypvj acetaminophen or ibuprofen for fever, muscle aching, and headache, unless another medicine was prescribed for this. If you have chronic liver or kidney disease or ever had a stomach ulcer or gastrointestinal bleeding, talk with your healthcare provider before using these medicines. No one who is younger than 18 and ill with a fever should take aspirin. It may cause severe disease or . Your appetite may be poor, so a light diet is fine. Avoid dehydration by drinking 8 to 12, 8-ounce glasses of fluids each day. This may include water; orange juice; lemonade; apple, grape, and cranberry juice; clear fruit drinks; electrolyte replacement and sports drinks; and decaffeinated teas and coffee. If you have been diagnosed with a kidney disease, ask your healthcare provider how much and what types of fluids you should drink to prevent dehydration. If you have kidney disease, drinking too much fluid can cause it build up in the your body and be dangerous to your health. Udgu-xmk-odwhomo remedies won't shorten the length of the illness but may be helpful for symptoms such as cough, sore throat, nasal and sinus congestion, or diarrhea. Don't use decongestants if you have high blood pressure. Follow-up care Follow up with your healthcare provider if you do not improve over the next week. Call 911 Call 911 if any of the following occur: Convulsion Feeling weak, dizzy, or like you are going to faint Chest pain, or more than mild shortness of breath When to seek medical advice Call your healthcare provider right away if any of these occur: Cough with lots of colored sputum (mucus) or blood in your sputum Chest pain, shortness of breath, wheezing, or trouble breathing Severe headache; face, neck, or ear pain Severe, constant pain in the lower right side of your belly (abdominal) Continued vomiting (can t keep liquids down) Frequent diarrhea (more than 5 times a day); blood (red or black color) or mucus in diarrhea Feeling weak, dizzy, or like you are going to faint Extreme thirst Fever of 100.4 F (38 C) or higher, or as directed by your healthcare provider [phone] [employer]. [address] [place] [address]. All rights reserved. This information is not intended as a substitute for professional medical care. Always follow your healthcare professional's instructions. Follow Up Care 02/16/2023 12:31:49 With:TIMOTHY ENCISO MD Address: [address] [place] [id number]- When:2-4 days [facility] 02-16-2023 Emergency department Discharge summary Discharge Instructions Thank you for allowing [facility] to assist you with your healthcare needs. The following is important discharge information regarding your hospital visit. Diagnosis from Today's Visit Cough Generalised body aches Viral syndrome Vomiting - What to Do Next Instructions from Your Care Team No qualifying data available. Post Acute Orders No qualifying data available. You Need to Schedule the Following Appointments Follow Up with TIMOTHY ENCISO MD When Within 2-4 days Where: [address] [place] [phone]- Allergies NKA Medications Please ask your primary doctor or pharmacist before taking any other medication not listed, including over the counter drugs, herbal medications, vitamins and or supplements as they may interact with your home medications. What How Much When Instructions Last Dose New guaiFENesin (guaiFENesin 400 mg oral tablet) 1 tab(s) by mouth Every 4 hours as needed for as needed for congestion Duration: 10 Days Printed Prescription New metoclopramide (Reglan 5 mg oral tablet) 1 tab(s) by mouth Four (4) times a day Duration: 7 Days Printed Prescription Unchanged albuterol (albuterol MDI (90 mcg/ inh) CFC free inhalation aerosol) 2 puff(s) by inhalation Every 4 hours as needed for for wheezing Unchanged ARIPiprazole (ARIPiprazole 5 mg oral tablet) 1 tab(s) by mouth Once a day Unchanged cetirizine (cetirizine 10 mg oral tablet) TAKE 1 TABLET BY MOUTH EVERY DAY NEEDED Unchanged cetirizine (ZyrTEC) Once a day Unchanged hydrOXYzine (Vistaril 50 mg oral capsule) 1 cap by mouth Four (4) times a day as needed for as needed for anxiety Unchanged traZODone (traZODone 50 mg oral tablet) 1 tab(s) by mouth Daily at bedtime Please take this list to your next doctor s visit. Bring all medications you take, including over the counter medications, herbals and other supplements with you to your doctor s visit. Patients and families are reminded to discard old lists and to update any records with all medication providers or retail pharmacies. Education Materials Viral Syndrome (Adult) A viral illness may cause a number of symptoms such as fever. Other symptoms depend on the part of the body that the virus affects. If it settles in your nose, throat, and lungs, it may cause cough, sore throat, congestion, runny nose, headache, earache and other ear symptoms, or shortness of breath. If it settles in your stomach and intestinal tract, it may cause nausea, vomiting, cramping, and diarrhea. Sometimes it causes generalized symptoms like aching all over, feeling tired, loss of energy, or loss of appetite. A viral illness usually lasts anywhere from several days to several weeks, but sometimes it lasts longer. In some cases, a more serious infection can look like a viral syndrome in the first few days of the illness. You may need another exam and additional tests to know the difference. Watch for the warning signs listed below for when to seek medical advice. Home care Follow these guidelines for taking care of yourself at home: If symptoms are severe, rest at home for the first 2 to 3 days. Stay away from cigarette smoke - both your smoke and the smoke from others. You may use mijq-nsw-dtewrsq acetaminophen or ibuprofen for fever, muscle aching, and headache, unless another medicine was prescribed for this. If you have chronic liver or kidney disease or ever had a stomach ulcer or gastrointestinal bleeding, talk with your healthcare provider before using these medicines. No one who is younger than 18 and ill with a fever should take aspirin. It may cause severe disease or . Your appetite may be poor, so a light diet is fine. Avoid dehydration by drinking 8 to 12, 8-ounce glasses of fluids each day. This may include water; orange juice; lemonade; apple, grape, and cranberry juice; clear fruit drinks; electrolyte replacement and sports drinks; and decaffeinated teas and coffee. If you have been diagnosed with a kidney disease, ask your healthcare provider how much and what types of fluids you should drink to prevent dehydration. If you have kidney disease, drinking too much fluid can cause it build up in the your body and be dangerous to your health. Oldx-slz-fkyuxur remedies won't shorten the length of the illness but may be helpful for symptoms such as cough, sore throat, nasal and sinus congestion, or diarrhea. Don't use decongestants if you have high blood pressure. Follow-up care Follow up with your healthcare provider if you do not improve over the next week. Call 911 Call 911 if any of the following occur: Convulsion Feeling weak, dizzy, or like you are going to faint Chest pain, or more than mild shortness of breath When to seek medical advice Call your healthcare provider right away if any of these occur: Cough with lots of colored sputum (mucus) or blood in your sputum Chest pain, shortness of breath, wheezing, or trouble breathing Severe headache; face, neck, or ear pain Severe, constant pain in the lower right side of your belly (abdominal) Continued vomiting (can t keep liquids down) Frequent diarrhea (more than 5 times a day); blood (red or black color) or mucus in diarrhea Feeling weak, dizzy, or like you are going to faint Extreme thirst Fever of 100.4 F (38 C) or higher, or as directed by your healthcare provider [phone] [employer]. [address] [place] [address], [place] [address]. All rights reserved. This information is not intended as a substitute for professional medical care. Always follow your healthcare professional's instructions. Additional Information VACCINATE! IT SAVES LIVES! Members of the community who have not yet received the COVID-19 vaccine and would like to receive it can visit one of [facility] vaccine clinics. There are many vaccine clinic locations within the [facility]. For locations and available times, please visit [email or web address] It is important to note that some COVID mobile vaccine clinics are held outdoors and may be canceled in rainy or stormy conditions. To learn more about pediatric vaccinations (ages 5-11), we invite you to visit the [facility] webpage. [email or web address] [email or web address]-Freq [email or web address].html To learn more about the COVID-19 vaccine, we invite you to visit the CDC website for a list of frequently asked questions. https://www.cdc.gov/coronavirus/ 2019-ncov/vaccines/faq.html [facility] Patient Portal Access Instructions: Stay connected with your healthcare team and access your personal medical information anytime with the [facility] Patient Portal. If you would like a full copy of your medical records please contact the [facility] Medical Records Department Tuesday through Tuesday between 8a.m. and 4:30p.m. Please follow the directions below to access the portal: 1.Access the email account you provided upon registration to the the [facility].2.Look for an invitation email from [facility].3.Open the email and access the invitation link: Accept Invitation to [facility]4.Fill in the required patrick to create your account. Sign into www.[employer] with your username and password that you created in the above steps to stay up to date. You can then view a summary of results, a summary of your visits, and the ability to download your summaries to your computer or send the information securely to a physician. Remember that your healthcare information is confidential, so carefully consider who you will allow to register on the [facility] Patient Portal for access to your information. You can also access the [facility] Patient Portal on the [employer] barrie. Simply click on Health Records under Health Data and then click on the [employer] logo. HOW TO SAFELY DISPOSE OF PRESCRIPTION MEDICATIONS Please use one of the following methods to safely dispose of your unused medications. 1.Use a drug disposal kit: the drug disposal pouch allows you to safely discard your old and unused drugs. Ask your nurse to give you one when you are discharged.2.Visit a local take-back location: Many local pharmacies and police departments have programs that collect old and unwanted prescription drugs. Call your local pharmacy or go to http://Kabooza.[employer]/8N2Rf8a to find one close to you.3.Make use of household items: Use cat litter or old coffee grounds to dispose medications if other options are not available. Mix your drugs with these household products, seal them in an airtight container and throw it into the garbage. Call [facility]: [phone] to be sure your drugs can be disposed of in this way. Some medicines may require a different approach.4.Never flush your medications down the toilet. IF YOU HAVE BEEN PRESCRIBED AN OPIOIDS FOR PAIN If you have been prescribed an opioid (such as hydrocodone, oxycodone or morphine), it is critical to understand the possible side effects and risks of opioid pain medications. Even when taken as directed, opioids can have several side effects including: Tolerance, meaning you might need to take more of a medication for the same pain relief. Nausea, vomiting and/or constipation. Sleepiness, dizziness, dry mouth, confusion, depression or itching. Physical dependence, meaning you have withdrawal symptoms when a medication is stopped ? this can develop within a few days. KNOW YOUR RESPONSIBILITIES It is important to know exactly how much and how often to take the opioid pain medications you are prescribed. Never take opioids in higher amounts or more often than prescribed. Do not combine opioids with alcohol or other drugs that cause drowsiness, such as benzodiazepines, also known as benzos, including diazepam and alprazolam, muscle relaxants or sleep aids. Never sell or share prescription opioids. This is illegal. Store opioids in a secure place and out of reach of others (including children, family, friends and visitors). The last page(s) of this document has been signed and retained as a CHART COPY Signatures Patient Education Materials Viral Syndrome (Adult) Medication Leaflets My discharge plan and instructions have been reviewed and explained to me and I,LORENE CROSS understand my current condition and have read and understand these discharge instructions. I have received a written copy of the plan/instructions. If I have questions, I am aware that I should contact my doctor. Patient/Steamfitter Signature: Date/Time: Relationship to Patient: Witness Name/Signature: Date/Time: [facility] 02-16-2023 Evaluation + Plan note Diagnostic Tests PendingUrine Culture 02/16/23 [facility] 02-16-2023 SARS-CoV-2 (COVID-19) RNA MAIKOL+probe Ql (Nph) Negative *NA* (02/16/23 1:12 PM) AO Auto Urine SS 01-31-2023 Hospital Discharge instructions Patient Education 01/31/2023 12:12:08 What Is Care? What Is Care? Your healthcare provider will guide you and your partner through . Before becoming , you may have adopted good health habits to prepare for your baby. But if you didn t, start today. One of the first steps is learning how to take care of yourself. See your healthcare provider as soon as you think you may be . Then, continue care throughout your . care helps you have a healthy baby During care: Your healthcare provider evaluates the health of your . Your healthcare provider will calculate a due date that gives an estimate of the delivery of your baby. Many women give between 38 and 41 weeks of . Your due date is determined by counting 40 weeks from the first day of your last menstrual period. The progress of your is checked. This includes your baby s growth, heart rate, changes in your weight and blood pressure, and your overall health and comfort. Your healthcare provider may find new concerns and manage existing ones before problems happen. Your healthcare provider will check lab work through blood and urine. Your healthcare provider will discuss normal changes that happen during , changes that may not be normal, and appropriate lifestyle changes. Your healthcare provider will answer your questions and help you prepare for labor and delivery of your baby. You are part of a team When you re , you re part of a team that includes you, your baby, and your healthcare provider. Your team also may include a partner or a main support person. He or she could be a loved one, like a spouse, a family member, or a friend. As you work toward giving your baby a healthy start, rely on your team members for support. It s not too late to start good habits What matters most is protecting your baby from this moment on. If you smoke, drink alcohol, or use drugs, now is the time to stop. If you need help, talk with your healthcare provider: Smoking increases the risk of losing your baby or having a cnd-qwcqc-plpzkr baby. If you smoke, quit now. Alcohol and drugs have been linked with miscarriage, defects, intellectual disability, and low weight. Avoid alcohol and drugs. Eat a healthy diet. This helps keep you and your baby strong and healthy. Follow your healthcare provider's instructions for nutrition. Also stay within the guidelines you are given for healthy weight gain. Take 400 micrograms to 800 micrograms (400 mcg to 800 mcg or 0.4 mg to 0.8 mg) of folic acid every day for at least 3 months before getting to lower your risk of some defects of the brain and spine. You can get folic acid from some foods. It is hard to get all of the folic acid you will need from foods alone. Talk with your healthcare provider about taking a folic acid supplement. Regular exercise will help you stay fit and feel good during . It can also help prevent or minimize back pain. Be sure to talk with your healthcare provider about how to exercise safely during . If you have a medical condition, be sure it is under control. Some conditions include asthma, diabetes, depression, high blood pressure, obesity, thyroid disease, or epilepsy. Be sure your vaccines are up to date. 5737-7910 [employer]. [address] [place] [address]. All rights reserved. This information is not intended as a substitute for professional medical care. Always follow your healthcare professional's instructions. Follow Up Care 01/31/2023 11:40:48 With:[facility] Address: [address] [place] [address] [place] [address]- When:2-4 days With:TIMOTHY ENCISO MD Address: [address] [place] [address]- When:2-4 days [facility] 01-31-2023 Emergency department Discharge summary Discharge Instructions Thank you for allowing [facility] to assist you with your healthcare needs. The following is important discharge information regarding your hospital visit. Diagnosis from Today's Visit test What to Do Next Instructions from Your Care Team No qualifying data available. Post Acute Orders No qualifying data available. You Need to Schedule the Following Appointments Follow Up with [facility] When Within 2-4 days Where: [address] [place] [address] [place] [address]- Follow Up with TIMOTHY ENCISO MD When Within 2-4 days Where: [address] [place] [address]- Allergies NKA Medications Please ask your primary doctor or pharmacist before taking any other medication not listed, including over the counter drugs, herbal medications, vitamins and or supplements as they may interact with your home medications. What How Much When Instructions Last Dose Unchanged albuterol (albuterol MDI (90 mcg/ inh) CFC free inhalation aerosol) 2 puff(s) by inhalation Every 4 hours as needed for for wheezing Unchanged ARIPiprazole (ARIPiprazole 5 mg oral tablet) 1 tab(s) by mouth Once a day Unchanged cetirizine (cetirizine 10 mg oral tablet) TAKE 1 TABLET BY MOUTH EVERY DAY NEEDED Unchanged cetirizine (ZyrTEC) Once a day Unchanged hydrOXYzine (Vistaril 50 mg oral capsule) 1 cap by mouth Four (4) times a day as needed for as needed for anxiety Unchanged traZODone (traZODone 50 mg oral tablet) 1 tab(s) by mouth Daily at bedtime Please take this list to your next doctor s visit. Bring all medications you take, including over the counter medications, herbals and other supplements with you to your doctor s visit. Patients and families are reminded to discard old lists and to update any records with all medication providers or retail pharmacies. Education Materials What Is Care? Your healthcare provider will guide you and your partner through . Before becoming , you may have adopted good health habits to prepare for your baby. But if you didn t, start today. One of the first steps is learning how to take care of yourself. See your healthcare provider as soon as you think you may be . Then, continue care throughout your . care helps you have a healthy baby During care: Your healthcare provider evaluates the health of your . Your healthcare provider will calculate a due date that gives an estimate of the delivery of your baby. Many women give between 38 and 41 weeks of . Your due date is determined by counting 40 weeks from the first day of your last menstrual period. The progress of your is checked. This includes your baby s growth, heart rate, changes in your weight and blood pressure, and your overall health and comfort. Your healthcare provider may find new concerns and manage existing ones before problems happen. Your healthcare provider will check lab work through blood and urine. Your healthcare provider will discuss normal changes that happen during , changes that may not be normal, and appropriate lifestyle changes. Your healthcare provider will answer your questions and help you prepare for labor and delivery of your baby. You are part of a team When you re , you re part of a team that includes you, your baby, and your healthcare provider. Your team also may include a partner or a main support person. He or she could be a loved one, like a spouse, a family member, or a friend. As you work toward giving your baby a healthy start, rely on your team members for support. It s not too late to start good habits What matters most is protecting your baby from this moment on. If you smoke, drink alcohol, or use drugs, now is the time to stop. If you need help, talk with your healthcare provider: Smoking increases the risk of losing your baby or having a ztw-cuvze-bhhmfh baby. If you smoke, quit now. Alcohol and drugs have been linked with miscarriage, defects, intellectual disability, and low weight. Avoid alcohol and drugs. Eat a healthy diet. This helps keep you and your baby strong and healthy. Follow your healthcare provider's instructions for nutrition. Also stay within the guidelines you are given for healthy weight gain. Take 400 micrograms to 800 micrograms (400 mcg to 800 mcg or 0.4 mg to 0.8 mg) of folic acid every day for at least 3 months before getting to lower your risk of some defects of the brain and spine. You can get folic acid from some foods. It is hard to get all of the folic acid you will need from foods alone. Talk with your healthcare provider about taking a folic acid supplement. Regular exercise will help you stay fit and feel good during . It can also help prevent or minimize back pain. Be sure to talk with your healthcare provider about how to exercise safely during . If you have a medical condition, be sure it is under control. Some conditions include asthma, diabetes, depression, high blood pressure, obesity, thyroid disease, or epilepsy. Be sure your vaccines are up to date. 0749-3205 [employer]. [address] [place] [address], [place] [address]. All rights reserved. This information is not intended as a substitute for professional medical care. Always follow your healthcare professional's instructions. Additional Information VACCINATE! IT SAVES LIVES! Members of the community who have not yet received the COVID-19 vaccine and would like to receive it can visit one of [facility] vaccine clinics. There are many vaccine clinic locations within the [facility]. For locations and available times, please visit [email or web address] It is important to note that some COVID mobile vaccine clinics are held outdoors and may be canceled in rainy or stormy conditions. To learn more about pediatric vaccinations (ages 5-11), we invite you to visit the [facility] webpage. [email or web address].[facility].org/p ages/5536-Tnhvk-Mnfxsuydaxl-Freq faetba-Uosda-Esuvfbbrl.html To learn more about the COVID-19 vaccine, we invite you to visit the CDC website for a list of frequently asked questions. https://www.cdc.gov/coronavirus/ 2019-ncov/vaccines/faq.html [facility] Patient Portal Access Instructions: Stay connected with your healthcare team and access your personal medical information anytime with the [facility] Patient Portal. If you would like a full copy of your medical records please contact the [facility] Medical Records Department Tuesday through Tuesday between 8a.m. and 4:30p.m. Please follow the directions below to access the portal: 1.Access the email account you provided upon registration to the [facility].2.Look for an invitation email from [facility].3.Open the email and access the invitation link: Accept Invitation to [facility]4.Fill in the required patrick to create your account. Sign into www.[employer] with your username and password that you created in the above steps to stay up to date. You can then view a summary of results, a summary of your visits, and the ability to download your summaries to your computer or send the information securely to a physician. Remember that your healthcare information is confidential, so carefully consider who you will allow to register on the [facility] Patient Portal for access to your information. You can also access the [facility] Patient Portal on the [employer] barrie. Simply click on Health Records under Health Data and then click on the [employer] logo. HOW TO SAFELY DISPOSE OF PRESCRIPTION MEDICATIONS Please use one of the following methods to safely dispose of your unused medications. 1.Use a drug disposal kit: the drug disposal pouch allows you to safely discard your old and unused drugs. Ask your nurse to give you one when you are discharged.2.Visit a local take-back location: Many local pharmacies and police departments have programs that collect old and unwanted prescription drugs. Call your local pharmacy or go to http://[employer]/9A5Qe6l to find one close to you.3.Make use of household items: Use cat litter or old coffee grounds to dispose medications if other options are not available. Mix your drugs with these household products, seal them in an airtight container and throw it into the garbage. Call [facility]: [phone] to be sure your drugs can be disposed of in this way. Some medicines may require a different approach.4.Never flush your medications down the toilet. IF YOU HAVE BEEN PRESCRIBED AN OPIOIDS FOR PAIN If you have been prescribed an opioid (such as hydrocodone, oxycodone or morphine), it is critical to understand the possible side effects and risks of opioid pain medications. Even when taken as directed, opioids can have several side effects including: Tolerance, meaning you might need to take more of a medication for the same pain relief. Nausea, vomiting and/or constipation. Sleepiness, dizziness, dry mouth, confusion, depression or itching. Physical dependence, meaning you have withdrawal symptoms when a medication is stopped ? this can develop within a few days. KNOW YOUR RESPONSIBILITIES It is important to know exactly how much and how often to take the opioid pain medications you are prescribed. Never take opioids in higher amounts or more often than prescribed. Do not combine opioids with alcohol or other drugs that cause drowsiness, such as benzodiazepines, also known as benzos, including diazepam and alprazolam, muscle relaxants or sleep aids. Never sell or share prescription opioids. This is illegal. Store opioids in a secure place and out of reach of others (including children, family, friends and visitors). The last page(s) of this document has been signed and retained as a CHART COPY Signatures Patient Education Materials What Is Care? Medication Leaflets My discharge plan and instructions have been reviewed and explained to me and I,LORENE CROSS understand my current condition and have read and understand these discharge instructions. I have received a written copy of the plan/instructions. If I have questions, I am aware that I should contact my doctor. Patient/Steamfitter Signature: Date/Time: Relationship to Patient: Witness Name/Signature: Date/Time: [facility] 01-31-2023 Emergency department Discharge summary Discharge Instructions Thank you for allowing [facility] to assist you with your healthcare needs. The following is important discharge information regarding your hospital visit. Diagnosis from Today's Visit test What to Do Next Instructions from Your Care Team No qualifying data available. Post Acute Orders No qualifying data available. You Need to Schedule the Following Appointments Follow Up with TIMOTHY ENCISO MD When Within 2-4 days Where: [facility] [place] [address]- Allergies NKA Medications Please ask your primary doctor or pharmacist before taking any other medication not listed, including over the counter drugs, herbal medications, vitamins and or supplements as they may interact with your home medications. What How Much When Instructions Last Dose Unchanged albuterol (albuterol MDI (90 mcg/ inh) CFC free inhalation aerosol) 2 puff(s) by inhalation Every 4 hours as needed for for wheezing Unchanged ARIPiprazole (ARIPiprazole 5 mg oral tablet) 1 tab(s) by mouth Once a day Unchanged cetirizine (cetirizine 10 mg oral tablet) TAKE 1 TABLET BY MOUTH EVERY DAY NEEDED Unchanged cetirizine (ZyrTEC) Once a day Unchanged hydrOXYzine (Vistaril 50 mg oral capsule) 1 cap by mouth Four (4) times a day as needed for as needed for anxiety Unchanged traZODone (traZODone 50 mg oral tablet) 1 tab(s) by mouth Daily at bedtime Please take this list to your next doctor s visit. Bring all medications you take, including over the counter medications, herbals and other supplements with you to your doctor s visit. Patients and families are reminded to discard old lists and to update any records with all medication providers or retail pharmacies. Education Materials What Is Care? Your healthcare provider will guide you and your partner through . Before becoming , you may have adopted good health habits to prepare for your baby. But if you didn t, start today. One of the first steps is learning how to take care of yourself. See your healthcare provider as soon as you think you may be . Then, continue care throughout your . care helps you have a healthy baby During care: Your healthcare provider evaluates the health of your . Your healthcare provider will calculate a due date that gives an estimate of the delivery of your baby. Many women give between 38 and 41 weeks of . Your due date is determined by counting 40 weeks from the first day of your last menstrual period. The progress of your is checked. This includes your baby s growth, heart rate, changes in your weight and blood pressure, and your overall health and comfort. Your healthcare provider may find new concerns and manage existing ones before problems happen. Your healthcare provider will check lab work through blood and urine. Your healthcare provider will discuss normal changes that happen during , changes that may not be normal, and appropriate lifestyle changes. Your healthcare provider will answer your questions and help you prepare for labor and delivery of your baby. You are part of a team When you re , you re part of a team that includes you, your baby, and your healthcare provider. Your team also may include a partner or a main support person. He or she could be a loved one, like a spouse, a family member, or a friend. As you work toward giving your baby a healthy start, rely on your team members for support. It s not too late to start good habits What matters most is protecting your baby from this moment on. If you smoke, drink alcohol, or use drugs, now is the time to stop. If you need help, talk with your healthcare provider: Smoking increases the risk of losing your baby or having a hzs-mkjox-pqwphk baby. If you smoke, quit now. Alcohol and drugs have been linked with miscarriage, defects, intellectual disability, and low weight. Avoid alcohol and drugs. Eat a healthy diet. This helps keep you and your baby strong and healthy. Follow your healthcare provider's instructions for nutrition. Also stay within the guidelines you are given for healthy weight gain. Take 400 micrograms to 800 micrograms (400 mcg to 800 mcg or 0.4 mg to 0.8 mg) of folic acid every day for at least 3 months before getting to lower your risk of some defects of the brain and spine. You can get folic acid from some foods. It is hard to get all of the folic acid you will need from foods alone. Talk with your healthcare provider about taking a folic acid supplement. Regular exercise will help you stay fit and feel good during . It can also help prevent or minimize back pain. Be sure to talk with your healthcare provider about how to exercise safely during . If you have a medical condition, be sure it is under control. Some conditions include asthma, diabetes, depression, high blood pressure, obesity, thyroid disease, or epilepsy. Be sure your vaccines are up to date. 7807-4805 [employer]. [address] [place], [place] [id number]. All rights reserved. This information is not intended as a substitute for professional medical care. Always follow your healthcare professional's instructions. Additional Information VACCINATE! IT SAVES LIVES! Members of the community who have not yet received the COVID-19 vaccine and would like to receive it can visit one of [facility] vaccine clinics. There are many vaccine clinic locations within the [facility] [facility]. For locations and available times, please visit [email or web address] [email or web address] It is important to note that some COVID mobile vaccine clinics are held outdoors and may be canceled in rainy or stormy conditions. To learn more about pediatric vaccinations (ages 5-11), we invite you to visit the [facility] webpage. https://www.[facility].org/p ages/6567-Sszig-Dgcnrjsbmps-Freq ejjnaq-Bvdly-Afkxdayig.html To learn more about the COVID-19 vaccine, we invite you to visit the CDC website for a list of frequently asked questions. https://www.cdc.gov/coronavirus/ 2019-ncov/vaccines/faq.html [facility] Patient Portal Access Instructions: Stay connected with your healthcare team and access your personal medical information anytime with the [facility] Patient Portal. If you would like a full copy of your medical records please contact the [facility] Medical Records Department Tuesday through Tuesday between 8a.m. and 4:30p.m. Please follow the directions below to access the portal: 1.Access the email account you provided upon registration to the the [facility].2.Look for an invitation email from [facility].3.Open the email and access the invitation link: Accept Invitation to [facility]4.Fill in the required patrick to create your account. Sign into www.[employer] with your username and password that you created in the above steps to stay up to date. You can then view a summary of results, a summary of your visits, and the ability to download your summaries to your computer or send the information securely to a physician. Remember that your healthcare information is confidential, so carefully consider who you will allow to register on the [facility] Patient Portal for access to your information. You can also access the [facility] Patient Portal on the [employer]. Simply click on Health Records under Health Data and then click on the [employer] logo. HOW TO SAFELY DISPOSE OF PRESCRIPTION MEDICATIONS Please use one of the following methods to safely dispose of your unused medications. 1.Use a drug disposal kit: the drug disposal pouch allows you to safely discard your old and unused drugs. Ask your nurse to give you one when you are discharged.2.Visit a local take-back location: Many local pharmacies and police departments have programs that collect old and unwanted prescription drugs. Call your local pharmacy or go to http://bit.[employer]/6D2Hv8v to find one close to you.3.Make use of household items: Use cat litter or old coffee grounds to dispose medications if other options are not available. Mix your drugs with these household products, seal them in an airtight container and throw it into the garbage. Call [facility]: [phone] to be sure your drugs can be disposed of in this way. Some medicines may require a different approach.4.Never flush your medications down the toilet. IF YOU HAVE BEEN PRESCRIBED AN OPIOIDS FOR PAIN If you have been prescribed an opioid (such as hydrocodone, oxycodone or morphine), it is critical to understand the possible side effects and risks of opioid pain medications. Even when taken as directed, opioids can have several side effects including: Tolerance, meaning you might need to take more of a medication for the same pain relief. Nausea, vomiting and/or constipation. Sleepiness, dizziness, dry mouth, confusion, depression or itching. Physical dependence, meaning you have withdrawal symptoms when a medication is stopped ? this can develop within a few days. KNOW YOUR RESPONSIBILITIES It is important to know exactly how much and how often to take the opioid pain medications you are prescribed. Never take opioids in higher amounts or more often than prescribed. Do not combine opioids with alcohol or other drugs that cause drowsiness, such as benzodiazepines, also known as benzos, including diazepam and alprazolam, muscle relaxants or sleep aids. Never sell or share prescription opioids. This is illegal. Store opioids in a secure place and out of reach of others (including children, family, friends and visitors). The last page(s) of this document has been signed and retained as a CHART COPY Signatures Patient Education Materials What Is Care? Medication Leaflets My discharge plan and instructions have been reviewed and explained to me and ITAY TAYLOR R understand my current condition and have read and understand these discharge instructions. I have received a written copy of the plan/instructions. If I have questions, I am aware that I should contact my doctor. Patient/Steamfitter Signature: Date/Time: Relationship to Patient: Witness Name/Signature: Date/Time: [facility] 12-31-2022 Note . MICRO - Microbiology PROCEDURE: Affirm Pathogens DNA Direct Probe [*1] SOURCE: Vaginal Fluid BODY SITE: Cervix COLLECTED DATE/TIME: 12/30/2022 11:11 EDT RECEIVED DATE/TIME: 12/30/2022 19:09 EDT START DATE/TIME: 12/30/2022 19:09 EDT FREE TEXT SOURCE: FINAL REPORTS Final Report [] Verified Date/Time/Personnel: 12/31/2022 08:22 EDT Vicki species DNA Probe Negative Gardnerella vaginalis DNA Probe Positive Trichomonas vaginalis DNA Probe Negative Performing Locations *1: This test was performed at: [facility], [address] [place] [address], [facility] , [facility] ([place]) 12-30-2022 Evaluation + Plan note Diagnostic Tests PendingChlamydia trachomatis PCR 12/30/22N. gonorrhoeae PCR 12/30/22Affirm Pathogens DNA Direct Probe 12/30/22 [facility] 12-30-2022 Hospital Discharge instructions Patient Education 12/30/2022 11:07:21 Understanding STDs Understanding STDs When it comes to sex, nothing is risk-free. Any sexual contact with the penis, vagina, anus, or mouth can spread a sexually transmitted disease (STD). The only sure way to prevent STDs is abstinence (not having sex). But there are ways to make sex safer. Use a latex condom each time you have sex. And choose your partner wisely. Use condoms for safer sex If you have sex, latex condoms provide the best protection against STDs. Latex condoms stop the exchange of body fluids that carry certain STDs. They also limit contact with affected skin. Be aware though, a condom doesn t cover all skin. So, affected skin that is not covered can still transfer disease. But you re safer with a condom than without one. Use a condom even if you use other control. While control methods like the pill or IUD help prevent , they do not protect against STDs. Choose the right condom Condoms made of latex prevent disease best. If you re allergic to latex, use polyurethane condoms instead. Male condoms fit over the penis. Female condoms line the vagina. Before buying a condom, read the label to be sure it prevents disease. Some novelty condoms don t. The right lubricant helps Buy lubricated condoms or use lubricant. This provides greater comfort and reduces the risk of condom breakage. Use only water-based lubricants. Don t use oil, lotion, or petroleum jelly. They can weaken the condom, causing breakage. Also, you may want to choose lubricants without nonoxynol-9. It s now known that this spermicide does not prevent disease and may cause irritation. Use condoms correctly For condoms to work, they must be used the right way. Keep these tips in mind: Use a new latex condom each time you have sex. Slip the condom on the penis before any contact is made. When ready to withdraw, hold the rim of the condom as the penis pulls out. This prevents the condom from slipping off. Check the expiration date before using a condom. Don t store condoms in places that can get hot, such as a car or a wallet that is carried in a back pocket. Get to know your partner Safer sex is a process. It involves getting to know your partner and making informed choices. Ask each other how many partners you have had in the past, and how many you have now. Find out if either of you has an STD. If you decide to have sex, use a condom each time. Don t stop using condoms unless you re sure neither of you has other partners and you ve both been tested to confirm you don t have STDs. Then stay free of disease by having sex only with each other (monogamy). Keep your cool Don t let alcohol or drugs cloud your judgment. They could lead you to have sex with someone you wouldn t have chosen if you were sober. Or, you might forget to use a condom. If you do plan to have sex, keep a latex condom with you. Don t wait until you re in the heat of passion to try to find one. Consider abstinence The only way to be sure you won t get an STD is to abstain from sex. Abstinence is a choice that many people make at some point in their lives. Maybe you want to wait until you are sure you re ready before you have sex. Maybe you d like a break from the responsibilities of sex for a while. Or maybe you just want to know your partner better before taking the next step. Abstinence is a choice you can make now to protect your future. 7644-3667 [employer]. [address] [place] [address]. All rights reserved. This information is not intended as a substitute for professional medical care. Always follow your healthcare professional's instructions. Follow Up Care 12/30/2022 10:42:51 With:Go to emergency room if symptoms worsen Address:Unknown When:2-4 days With:TIMOTHY ENCISO MD Address: [address] [place] [address]- When:2-4 days [facility] 12-30-2022 Note Discharge Instructions Thank you for allowing [facility] to assist you with your healthcare needs. The following is important discharge information regarding your hospital visit. Diagnosis from Today's Visit Medical examinations/reports status STD exposure What to Do Next Instructions from Your Care Team Follow-up results of STD testing. As your encounter was over a month ago and you are asymptomatic we did discuss prophylactic antibiotic treatment should symptoms utilize hold off on antibiotics and follow-up results of test. If you do test positive would recommend treatment. Follow-up with your primary care provider. Return emergency department if you experience symptoms or any other care concern. No qualifying data available. Post Acute Orders No qualifying data available. You Need to Schedule the Following Appointments Follow Up with Go to emergency room if symptoms worsen When Within 2-4 days Follow Up with ITMOTHY ENCISO MD When Within 2-4 days Where: [address] [place] [address]- Allergies NKA Medications Please ask your primary doctor or pharmacist before taking any other medication not listed, including over the counter drugs, herbal medications, vitamins and or supplements as they may interact with your home medications. What How Much When Instructions Last Dose Unchanged albuterol (albuterol MDI (90 mcg/ inh) CFC free inhalation aerosol) 2 puff(s) by inhalation Every 4 hours as needed for for wheezing Unchanged ARIPiprazole (ARIPiprazole 5 mg oral tablet) 1 tab(s) by mouth Once a day Unchanged cetirizine (cetirizine 10 mg oral tablet) TAKE 1 TABLET BY MOUTH EVERY DAY NEEDED Unchanged cetirizine (ZyrTEC) Once a day Unchanged hydrOXYzine (Vistaril 50 mg oral capsule) 1 cap by mouth Four (4) times a day as needed for as needed for anxiety Unchanged traZODone (traZODone 50 mg oral tablet) 1 tab(s) by mouth Daily at bedtime Please take this list to your next doctor s visit. Bring all medications you take, including over the counter medications, herbals and other supplements with you to your doctor s visit. Patients and families are reminded to discard old lists and to update any records with all medication providers or retail pharmacies. Education Materials Understanding STDs When it comes to sex, nothing is risk-free. Any sexual contact with the penis, vagina, anus, or mouth can spread a sexually transmitted disease (STD). The only sure way to prevent STDs is abstinence (not having sex). But there are ways to make sex safer. Use a latex condom each time you have sex. And choose your partner wisely. Use condoms for safer sex If you have sex, latex condoms provide the best protection against STDs. Latex condoms stop the exchange of body fluids that carry certain STDs. They also limit contact with affected skin. Be aware though, a condom doesn t cover all skin. So, affected skin that is not covered can still transfer disease. But you re safer with a condom than without one. Use a condom even if you use other control. While control methods like the pill or IUD help prevent , they do not protect against STDs. Choose the right condom Condoms made of latex prevent disease best. If you re allergic to latex, use polyurethane condoms instead. Male condoms fit over the penis. Female condoms line the vagina. Before buying a condom, read the label to be sure it prevents disease. Some novelty condoms don t. The right lubricant helps Buy lubricated condoms or use lubricant. This provides greater comfort and reduces the risk of condom breakage. Use only water-based lubricants. Don t use oil, lotion, or petroleum jelly. They can weaken the condom, causing breakage. Also, you may want to choose lubricants without nonoxynol-9. It s now known that this spermicide does not prevent disease and may cause irritation. Use condoms correctly For condoms to work, they must be used the right way. Keep these tips in mind: Use a new latex condom each time you have sex. Slip the condom on the penis before any contact is made. When ready to withdraw, hold the rim of the condom as the penis pulls out. This prevents the condom from slipping off. Check the expiration date before using a condom. Don t store condoms in places that can get hot, such as a car or a wallet that is carried in a back pocket. Get to know your partner Safer sex is a process. It involves getting to know your partner and making informed choices. Ask each other how many partners you have had in the past, and how many you have now. Find out if either of you has an STD. If you decide to have sex, use a condom each time. Don t stop using condoms unless you re sure neither of you has other partners and you ve both been tested to confirm you don t have STDs. Then stay free of disease by having sex only with each other (monogamy). Keep your cool Don t let alcohol or drugs cloud your judgment. They could lead you to have sex with someone you wouldn t have chosen if you were sober. Or, you might forget to use a condom. If you do plan to have sex, keep a latex condom with you. Don t wait until you re in the heat of passion to try to find one. Consider abstinence The only way to be sure you won t get an STD is to abstain from sex. Abstinence is a choice that many people make at some point in their lives. Maybe you want to wait until you are sure you re ready before you have sex. Maybe you d like a break from the responsibilities of sex for a while. Or maybe you just want to know your partner better before taking the next step. Abstinence is a choice you can make now to protect your future. 3750-2647 [employer]. [address] [place] [address], [place] [address]. All rights reserved. This information is not intended as a substitute for professional medical care. Always follow your healthcare professional's instructions. Additional Information VACCINATE! IT SAVES LIVES! Members of the community who have not yet received the COVID-19 vaccine and would like to receive it can visit one of [facility] vaccine clinics. There are many vaccine clinic locations within the [facility]. For locations and available times, please visit [email or web address] [email or web address] It is important to note that some COVID mobile vaccine clinics are held outdoors and may be canceled in rainy or stormy conditions. To learn more about pediatric vaccinations (ages 5-11), we invite you to visit the [facility] webpage. https://www.[facility].org/p ages/1067-Hxiew-Bussgbsosfb-Freq tjccle-Shbjp-Bqrwzfbbu.html To learn more about the COVID-19 vaccine, we invite you to visit the CDC website for a list of frequently asked questions. https://www.cdc.gov/coronavirus/ 2019-ncov/vaccines/faq.html [facility] Patient Portal Access Instructions: Stay connected with your healthcare team and access your personal medical information anytime with the [facility] Patient Portal. If you would like a full copy of your medical records please contact the [facility] Medical Records Department Tuesday through Tuesday between 8a.m. and 4:30p.m. Please follow the directions below to access the portal: 1.Access the email account you provided upon registration to the hospital.2.Look for an invitation email from [facility].3.Open the email and access the invitation link: Accept Invitation to [facility]4.Fill in the required patrick to create your account. Sign into www.[employer] with your username and password that you created in the above steps to stay up to date. You can then view a summary of results, a summary of your visits, and the ability to download your summaries to your computer or send the information securely to a physician. Remember that your healthcare information is confidential, so carefully consider who you will allow to register on the [facility] Patient Portal for access to your information. You can also access the [facility] Patient Portal on the [employer]. Simply click on Health Records under Health Data and then click on the [employer] logo. HOW TO SAFELY DISPOSE OF PRESCRIPTION MEDICATIONS Please use one of the following methods to safely dispose of your unused medications. 1.Use a drug disposal kit: the drug disposal pouch allows you to safely discard your old and unused drugs. Ask your nurse to give you one when you are discharged.2.Visit a local take-back location: Many local pharmacies and police departments have programs that collect old and unwanted prescription drugs. Call your local pharmacy or go to http://[employer]/0G5He2u to find one close to you.3.Make use of household items: Use cat litter or old coffee grounds to dispose medications if other options are not available. Mix your drugs with these household products, seal them in an airtight container and throw it into the garbage. Call [facility]: [phone] to be sure your drugs can be disposed of in this way. Some medicines may require a different approach.4.Never flush your medications down the toilet. IF YOU HAVE BEEN PRESCRIBED AN OPIOIDS FOR PAIN If you have been prescribed an opioid (such as hydrocodone, oxycodone or morphine), it is critical to understand the possible side effects and risks of opioid pain medications. Even when taken as directed, opioids can have several side effects including: Tolerance, meaning you might need to take more of a medication for the same pain relief. Nausea, vomiting and/or constipation. Sleepiness, dizziness, dry mouth, confusion, depression or itching. Physical dependence, meaning you have withdrawal symptoms when a medication is stopped ? this can develop within a few days. KNOW YOUR RESPONSIBILITIES It is important to know exactly how much and how often to take the opioid pain medications you are prescribed. Never take opioids in higher amounts or more often than prescribed. Do not combine opioids with alcohol or other drugs that cause drowsiness, such as benzodiazepines, also known as benzos, including diazepam and alprazolam, muscle relaxants or sleep aids. Never sell or share prescription opioids. This is illegal. Store opioids in a secure place and out of reach of others (including children, family, friends and visitors). The last page(s) of this document has been signed and retained as a CHART COPY Signatures Patient Education Materials Understanding STDs Medication Leaflets My discharge plan and instructions have been reviewed and explained to me and I,LORENE CROSS understand my current condition and have read and understand these discharge instructions. I have received a written copy of the plan/instructions. If I have questions, I am aware that I should contact my doctor. Patient/Steamfitter Signature: Date/Time: Relationship to Patient: Witness Name/Signature: Date/Time: [facility] 11-01-2022 Discharge summary Note Date/Time November 01, 2022 12:54am [facility] Medical Records Department [address] [facility] [place] [address] Emergency Department Summary 11/01/22 MR#: [id number] Acct: [id number] Name: LORENE CROSS Timmy Rep #:[id number] : 2000 22 From: Chung Shanks MD PCP: Care Physician,No Primary Status :REG ER Location: ED ADDENDUM by Dr. Sobia Bauer DO on 11/01/22 at 1047 Patient accepted at [facility] by Dr. Farris. Patient signed out to me pending acceptance. No acute events. 11/01/22 1047<Electronically signed by Sobia Bauer DO> Cosigner Signature (if applicable): cc: No Primary Care Physician ~* Signed HPI HPI - Psych History of Present Illness Chief Complaint: Mental Health Narrative Narrative: Patient presents with suicidal ideations. She feels like she does not want to live although she does not have a plan at this time. She tells me there is no specific reason why this is happening she does not know any stressors in her life, she has had similar symptoms in the past and a few years ago she was admitted psychiatrically for similar symptoms. She has not done anything to harm herself at this time [facility] Medical History (Updated 11/01/22 @ 00:[address] Chung Shanks MD) Alcohol abuse Anxiety Asthma Depression Substance abuse Home Medications NK 05/21/19 [History Last Taken Unknown] Allergy/AdvReac Type Severity Reaction Status Date / Time No Known Allergies Allergy Verified 11/01/22 00:38 Social History Smoking Status: Current every day smoker tobacco type: e-cigarettes ROS ROS ED ROS Narrative Past medical history: Reviewed Medications: Reviewed Social history: Noncontributory Review of systems: General: No fever Eyes: No visual changes ENT: No upper airway congestion, normal voice Neck: No neck pain Cardiovascular: No chest pain Respiratory: No shortness of breath or cough Gastrointestinal: No abdominal pain, nausea vomiting or diarrhea Genitourinary: No dysuria Musculoskeletal: Denies myalgias no difficulty with ambulation Skin: No rash Neurological: No memory loss, confusion or any focal weakness Psych: As in HPI EXAM Physical Exam Narrative Exam Narrative: Physical exam General: She is tearful. She does not appear in any other distress Head: Normocephalic, Atraumatic Eyes: Conjunctiva not pale ENT: Moist mucous membranes Neck: Supple, Nontender, No lymphadenopathy Cardiovascular: Regular rate, Regular rhythm Respiratory: No distress, CTA bilaterally Abdomen: Soft, Nontender, Nondistended Back: Nontender, Normal Inspection. Negative for: CVA tenderness Extremities: Nontender, No edema Skin: Normal color, No rash Neurological: Alert, Normal Strength, Normal Sensation Psychological: Tearful, admits to being depressed and anxious and having suicidal ideations otherwise she is lucid and coherent and gives me a good history. No psychosis. Const Vital Signs: 11/01/22 00:38 Temperature 98.8 F Temperature Source Temporal Pulse Rate 97 Respiratory Rate 20 H Blood Pressure 115/88 H Blood Pressure Mean 97 Pulse Ox 100 Oxygen Delivery Method Room Air MDM MDM MDM Narrative Medical decision making narrative: Patient is actively suicidal. She will need psychiatric placement. I will medically clear her. Otherwise she will be evaluated by crisis for psychiatric admission. Discharge Plan Triage Chief Complaint: Mental Health ED Provider: Chung Shanks Dx/Rx/DC Orders Clinical Impression: Anxiety, Depression, Feeling suicidal Prescriptions: No Action NK Primary Care Provider: Timothy Enciso Referrals: Timothy Enciso MD [Primary Care Provider] - Disposition Disposition: Psychiatric Hospital or Unit What to do if you have Problems For any increased pain, shortness of breath, bleeding, nausea or vomiting, chestpain, or any unexpected problems, contact your Primary Care Provider. Call [facility] [employer] [facility] ([phone]) or report to the closest Emergency Room. Call 911 if necessary. 11/01/22 0054 <Electronically signed by Chung Shanks MD> Cosigner Signature (if applicable): CC: No Primary Care Physician ~ Signed [facility] Work Phone: 1(933) 878-624209-20-2022 NoteHNO ID: [id number] Author: Noemi Hughes APRN.CNM Service: ? Author Type: Associate Programmer Analyst Type: Progress Notes Filed: 12/29/2021 9:45 AM Note Text: Lorene is a 21 year old who presents for Nexplanon removal for scheduled 3 year removal. UNIVERSAL PROTOCOL / SAFETY CHECKLIST Procedure to be Performed: Nexplanon Removal Sign In: A Moment of CARE was completed. Personnel directly involved with the procedure wore the appropriate PPE (Personal Protective Equipment). Patient/Surrogate Stated/Verified: PATIENT VERIFIED(optional for EMERGENT procedures): Patient name, Date of , Relevant allergies, and The intended procedure Time Out Communication: Intended patient and procedure match the source documents. Consent documented and matches the intended procedure. Sign Out: SIGN OUT (optional for EMERGENT procedures): No specimen collected. TECHNIQUE: Patient placed in supine position with left arm bent at the elbow and placed over the head. Skin cleansed with betadine. 1.5mL of 1% lidocaine with epi injected subQ along insertion site. Scalpel used to made a 5mm stab incision superficially at distal end of Nexplanon. Device removed under sterile technique with a small hemostat. Sterile pressure dressing applied. AANDP: 21 year old here for Nexplanon removal Nexplanon removed intact without difficulty. The patient was instructed to remove the dressing after 24 hours. Contraceptive plans unsure- condoms at this time. Noemi Hughes APRN.[facility] History of Present illness Narrative* Noemi Hughes APRN.CNM - 12/29/2021 9:07 AM EDT Lorene is a 21 year old who presents for Nexplanon removal for scheduled 3 year removal. UNIVERSAL PROTOCOL / SAFETY CHECKLIST Procedure to be Performed: Nexplanon Removal Sign In: A Moment of CARE was completed. Personnel directly involved with the procedure wore the appropriate PPE (Personal Protective Equipment). Patient/Surrogate Stated/Verified: PATIENT VERIFIED(optional for EMERGENT procedures): Patient name, Date of , Relevant allergies, and The intended procedure Time Out Communication: Intended patient and procedure match the source documents. Consent documented and matches the intended procedure. Sign Out: SIGN OUT (optional for EMERGENT procedures): No specimen collected. TECHNIQUE: Patient placed in supine position with left arm bent at the elbow and placed over the head. Skin cleansed with betadine. 1.5mL of 1% lidocaine with epi injected subQ along insertion site. Scalpel used to made a 5mm stab incision superficially at distal end of Nexplanon. Device removed understerile technique with a small hemostat. Sterile pressure dressing applied. A&P: 21 year old here for Nexplanon removal Nexplanon removed intact without difficulty. The patient was instructed to remove the dressing after 24 hours. Contraceptive plans unsure- condoms at this time. Noemi Hughes APRN.CNM [facility] Discharge instructions Patient Education 12/23/2021 15:53:22 Asthma, Acute (Adult) Asthma (Adult) Asthma is a disease where the medium and small air passages within the lung go into spasm and restrict the flow of air. Inflammation and swelling of the airways cause further blockage. During an acute asthma attack, these factors cause trouble breathing, wheezing, cough and chest tightness. An asthma attack can be triggered by many things. Common triggers include infections such as the common cold, bronchitis, and pneumonia. Irritants such as smoke or pollutants in the air, very cold air, emotional upset, and exercise can also trigger an attack. In many adults with asthma, allergies to dust, mold, pollen and animal dander can cause an asthma attack. Skipping doses of daily asthma medicine can also bring on an asthma attack. Asthma can be controlled using the proper medicines prescribed by your healthcare provider and avoiding exposure to known triggers including allergens and irritants. Home care Take prescribed medicine exactly at the times advised. If you need medicine such as from a hand held inhaler or aerosol breathing machine more than every 4 hours, contact your healthcare provider or seek immediate medical attention. If prescribed an antibiotic or prednisone, take all of the medicine as prescribed, even if you are feeling better after a few days. Don't smoke. Avoid being exposed to the smoke of others. Some people with asthma have worsening of their symptoms when they take aspirin and non-steroidal or fever-reducing medicines like ibuprofen and naproxen. Talk to your healthcare provider if you think this may apply to you. Follow-up care Follow up with your healthcare provider, or as advised. Always bring all of your current medicines to any appointments with your healthcare provider. Also bring a complete list of medicines even those not taken for asthma. If you don't already have one, talk to your healthcare provider about developing your own Asthma Action Plan. A pneumococcal (pneumonia) vaccine and yearly flu shot (every fall) are recommended. Ask your doctor about this. When to seek medical advice Call your healthcare provider right away if any of these occur: Increased wheezing or shortness of breath Need to use your inhalers more often than usual without relief Fever of 100.4 F (38 C) or higher, or as directed by your healthcare provider Coughing up lots of dark-colored or bloody sputum (mucus) Chest pain with each breath If you use a peak flow meter as part of an Asthma Action Plan, and you are still in the yellow zone(50% to 80%) 15 minutes after using inhaler medicine. Call 911 Call 911 if any of the following occur Trouble walking or talking because of shortness of breath If you use a peak flow meter as part of an Asthma Action Plan and you are still in the red zone (less than 50%) 15 minutes after using inhaler medicine Lips or fingernails turning salinas or blue [phone] [employer]. [address] [place] [address]. All rights reserved. This information is not intended as a substitute for professional medical care. Always follow yourhealthcare professional's instructions. Follow Up Care 12/23/2021 15:44:54 With:TIMOTHY ENCISO MD Address: [address] [place] [address]- When:2-4 days [facility] 09-14-2022 Note Discharge Instructions Thank you for allowing [facility] to assist you with your healthcare needs. The following is importantdischarge information regarding your hospital visit. Diagnosis from Today's Visit Exacerbation of asthma Wheezing What to Do Next Instructions from Your Care Team No qualifying data available. Post Acute Orders No qualifying data available. You Need to Schedule the Following Appointments Follow Up with TIMOTHY ENCISO MD When Within 2-4 days Where: [address] [id number]- Allergies NKA Medications Please ask your primary doctor or pharmacist before taking any other medication not listed, including over the counter drugs, herbal medications, vitamins and or supplements as they may interact withyour home medications. What How Much When Why Instructions Last Dose New predniSONE (predniSONE 50 mg oral tablet) 1 tab(s) by mouth Once a day with a meal Exacerbation of asthma Duration: 5 Days Printed Prescription 12/23/2021 @ 4:00p Unchanged albuterol (albuterol MDI (90 mcg/ inh) CFC free inhalation aerosol) 2 puff(s) by inhalation Every 4 hours as needed for for wheezing Unchanged ARIPiprazole (ARIPiprazole 5 mg oral tablet) 1 tab(s) by mouth Once a day Unchanged cetirizine (cetirizine 10 mg oral tablet) TAKE 1 TABLET BY MOUTH EVERY DAY NEEDED Unchanged cetirizine (ZyrTEC) Once a day Unchanged hydrOXYzine (Vistaril 50 mg oral capsule) 1 cap by mouth Four (4) times a day as needed for as needed for anxiety Unchanged traZODone (traZODone 50 mg oral tablet) 1 tab(s) by mouth Daily at bedtime Please take this list to your next doctor s visit. Bring all medications you take, including over the counter medications, herbals and other supplements with you to your doctor s visit. Patients and families are reminded to discard old lists and to update any records with all medication providers or retail pharmacies. Medication Leaflets prednisone (PRED anthony sonrhona) Erin What is the most important information I should know about prednisone? You should not use prednisone if you have a fungal infection anywhere in your body. You should not stop using prednisone suddenly. Follow your doctor's instructions about tapering your dose. What is prednisone? Prednisone is a steroid that reduces inflammation in the body, and also suppresses your immune system. Prednisone is used to treat many different conditions such as hormonal disorders, skin diseases, arthritis, lupus, psoriasis, allergic conditions, ulcerative colitis, Crohn's disease, eye diseases, lung diseases, asthma, tuberculosis, blood cell disorders, kidney disorders, leukemia, lymphoma, multi ple sclerosis, organ transplant rejection, swelling from a brain tumor or injury. Prednisone may also be used for purposes not listed in this medication guide. What should I discuss with my healthcare provider before taking prednisone? You should not use prednisone if you are allergic to it, or if you have a fungal infection anywherein your body. Steroid medication can weaken your immune system, making it easier for you to get an infection or worsening an infection you already have. Tell your doctor about any illness or infection you've had within the past several weeks. Tell your doctor if you have ever had: heart problems, high blood pressure, or a heart attack; glaucoma or cataracts; herpes infection of the eyes; past or present tuberculosis; a parasite infection that causes diarrhea (such as threadworms); any illness that causes diarrhea; underactive thyroid; diabetes; a stomach ulcer, diverticulitis; a colostomy or ileostomy; osteoporosis or low bone mineral density (steroid medication can increase your risk of bone loss); low levels of calcium or potassium in your blood; cirrhosis or other liver disease; mental illness or psychosis; or a muscle disorder such as myasthenia gravis. Long-term use of steroids may lead to bone loss (osteoporosis), especially if you smoke or drink alcohol, if you do not exercise, or if you do not get enough vitamin D or calcium in your diet. It is not known whether this medicine will harm an unborn baby. Tell your doctor if you are or plan to become . You should not breastfeed while using prednisone. How should I take prednisone? Follow all directions on your prescription label and read all medication guides or instruction sheets. Your doctor may occasionally change your dose. Use the medicine exactly as directed. Prednisone is taken daily or every other day, depending on the condition being treated. You may need to take the medicine at a certain time of day. Follow your doctor's instructions about when and how often to take this medicine. Take with food if prednisone upsets your stomach. Measure liquid medicine carefully. Use the dosing syringe provided, or use a medicine dose-measuring device (not a kitchen spoon). Swallow the delayed-release tablet whole and do not crush, chew, or break it. Prednisone can weaken (suppress) your immune system, and you may get an infection more easily. Callyour doctor if you have signs of infection (fever, weakness, cold or flu symptoms, skin sores, diarrhea, frequent or recurring illness). If you have major surgery or a severe injury or infection, your prednisone dose needs may change. Make sure any doctor caring for you knows you are using this medicine. If you use this medicine long-term, you may need medical tests and vision exams. In case of emergency, wear or carry medical identification to let others know you use a steroid. You should not stop using prednisone suddenly. Follow your doctor's instructions about tapering your dose. Store at room temperature away from moisture, heat, and light. What happens if I miss a dose? Take the medicine as soon as you can, but skip the missed dose if it is almost time for your next dose. Do not take two doses at one time. What happens if I overdose? Seek emergency medical attention or call the Poison Help line at . High doses or long-term use of prednisone can lead to thinning skin, easy bruising, changes in bodyfat (especially in your face, neck, back, and waist), increased acne or facial hair, menstrual problems, impotence, or loss of interest in sex. What should I avoid while taking prednisone? Do not receive a 'live' vaccine while using prednisone. The vaccine may not work as well and may not fully protect you from disease. Live vaccines include measles, mumps, rubella (MMR), polio, rotavirus, typhoid, yellow fever, varicella (chickenpox), zoster (shingles), and nasal flu (influenza) vaccine. Avoid being near people who are sick or have infections. Call your doctor for preventive treatment if you are exposed to chickenpox or measles. These conditions can be serious or even fatal in peoplewho are using steroid medicine. Avoid drinking alcohol. What are the possible side effects of prednisone? Get emergency medical help if you have signs of an allergic reaction: hives; difficult breathing; swelling of your face, lips, tongue, or throat. Call your doctor at once if you have: muscle pain or weakness; blurred vision, tunnel vision, eye pain, or seeing halos around lights; severe depression, changes in personality, unusual thoughts or behavior; bloody or tarry stools, coughing up blood or vomit that looks like coffee grounds; swelling, rapid weight gain, feeling short of breath; irregular heartbeats; severe headache, pounding in your neck or ears; decreased adrenal gland hormones--muscle weakness, tiredness, diarrhea, nausea, menstrual changes, skin discoloration, craving salty foods, and feeling light- headed; or low potassium level--leg cramps, constipation, irregular heartbeats, fluttering in your chest, increased thirst or urination, numbness or tingling, muscle weakness or limp feeling. Prednisone can affect growth in children. Tell your doctor if your child is not growing at a normalrate while using this medicine. Common side effects may include: weight gain (especially in your face or your upper back and torso); increased appetite; mood changes, trouble sleeping; changes in your menstrual periods; problems with memory or thought; muscle or joint pain; weakness; headache, dizziness, spinning sensation; nausea, bloating, loss of appetite; slow wound healing; or acne, increased sweating, thinning skin, bruising, pinpoint spots under your skin. This is not a complete list of side effects and others may occur. Call your doctor for medical advice about side effects. You may report side effects to FDA at 3-334-NBM-3810. What other drugs will affect prednisone? Sometimes it is not safe to use certain medications at the same time. Some drugs can affect your blood levels of other drugs you take, which may increase side effects or make the medications less effective. Tell your doctor about all your current medicines. Many drugs can affect prednisone, especially: bupropion; cyclosporine; digoxin; ketoconazole; an antibiotic; control pills or hormone replacement therapy; a diuretic or 'water pill'; insulin or oral diabetes medicine; a blood thinner--warfarin, Coumadin, Jantoven; or NSAIDs (nonsteroidal anti-inflammatory drugs)--aspirin, ibuprofen (Advil, Motrin), naproxen (Aleve), celecoxib, diclofenac, indomethacin, meloxicam, and others. This list is not complete and many other drugs may affect prednisone. This includes prescription and zpiq-soz-fiznjau medicines, vitamins, and herbal products. Not all possible drug interactions are listed here. Where can I get more information? Your pharmacist can provide more information about prednisone. Remember, keep this and all other medicines out of the reach of children, never share your medicines with others, and use this medication only for the indication prescribed. Every effort has been made to ensure that the information provided by [employer]') is accurate, up-to-date, and complete, but no guarantee is made to that effect. Drug information contained herein may be time sensitive. [employer] information has been compiled for use by healthcare practitioners and consumers in the [place] and therefore [employer] does not warrant that uses outside of the [place] are appropriate, unless specifically indicated otherwise. [employer] drug information does not endorse drugs, diagnose patients or recommend therapy. [employer] drug information isan informational resource designed to assist licensed healthcare practitioners in caring for their p atients and/or to serve consumers viewing this service as a supplement to, and not a substitute for, the expertise, skill, knowledge and judgment of healthcare practitioners. The absence of a warningfor a given drug or drug combination in no way should be construed to indicate that the drug or drug combination is safe, effective or appropriate for any given patient. [employer] does not assume any responsibility for any aspect of healthcare administered with the aid of information [employer] provides. The information contained herein is not intended to cover all possible uses, directions, precautions, warnings, drug interactions, allergic reactions, or adverse effects. If you have questions about the drugs you are taking, check with your doctor, nurse or pharmacist. Copyright 0881-8699 [employer] Version: 10.. Revision Date: 07/06/2018. Education Materials Asthma (Adult) Asthma is a disease where the medium and small air passages within the lung go into spasm and restrict the flow of air. Inflammation and swelling of the airways cause further blockage. During an acute asthma attack, these factors cause trouble breathing, wheezing, cough and chest tightness. An asthma attack can be triggered by many things. Common triggers include infections such as the common cold, bronchitis, and pneumonia. Irritants such as smoke or pollutants in the air, very cold air, emotional upset, and exercise can also trigger an attack. In many adults with asthma, allergies to dust, mold, pollen and animal dander can cause an asthma attack. Skipping doses of daily asthma medicine can also bring on an asthma attack. Asthma can be controlled using the proper medicines prescribed by your healthcare provider and avoiding exposure to known triggers including allergens and irritants. Home care Take prescribed medicine exactly at the times advised. If you need medicine such as from a hand held inhaler or aerosol breathing machine more than every 4 hours, contact your healthcare provider or seek immediate medical attention. If prescribed an antibiotic or prednisone, take all of the medicine as prescribed, even if you are feeling better after a few days. Don't smoke. Avoid being exposed to the smoke of others. Some people with asthma have worsening of their symptoms when they take aspirin and non-steroidal or fever-reducing medicines like ibuprofen and naproxen. Talk to your healthcare provider if you think this may apply to you. Follow-up care Follow up with your healthcare provider, or as advised. Always bring all of your current medicines to any appointments with your healthcare provider. Also bring a complete list of medicines even those not taken for asthma. If you don't already have one, talk to your healthcare provider about developing your own Asthma Action Plan. A pneumococcal (pneumonia) vaccine and yearly flu shot (every fall) are recommended. Ask your doctor about this. When to seek medical advice Call your healthcare provider right away if any of these occur: Increased wheezing or shortness of breath Need to use your inhalers more often than usual without relief Fever of 100.4 F (38 C) or higher, or as directed by your healthcare provider Coughing up lots of dark-colored or bloody sputum (mucus) Chest pain with each breath If you use a peak flow meter as part of an Asthma Action Plan, and you are still in the yellow zone(50% to 80%) 15 minutes after using inhaler medicine. Call 911 Call 911 if any of the following occur Trouble walking or talking because of shortness of breath If you use a peak flow meter as part of an Asthma Action Plan and you are still in the red zone (less than 50%) 15 minutes after using inhaler medicine Lips or fingernails turning salinas or blue [id number] [employer]. [address] [place] [address], [place] [address]. All rights reserved. This information is not intended as a substitute for professional medical care. Always follow yourhealthcare professional's instructions. Additional Information VACCINATE! IT SAVES LIVES! Members of the community who have not yet received the COVID-19 vaccine and would like to receive it can visit one of [facility] vaccine clinics. There are many vaccine clinic locations within the [facility]. For locations and available times, please visit [email or web address]. It is important to note that some COVID mobile vaccine clinics are held outdoors and may be canceled in rainy orstormy conditions. To learn more about pediatric vaccinations (ages 5-11), we invite you to visit the [facility] webpage. [email or web address] learn more about the COVID-19 vaccine, we invite you to visit the [facility] website for a list of frequently asked questions. [email or web address] [facility] Patient Portal Access Instructions: Stay connected with your healthcare team and access your personal medical information anytime with the [facility] Patient Portal. If you would like a full copy of your medical records please contact the [facility] Medical Records Department Tuesday through Tuesday between 8a.m. and 4:30p.m. Please follow the directions below to access the portal: 1.Access the email account you provided upon registration to the hospital.2.Look for an invitation email from [facility].3.Open the email and access the invitation link: Accept Invitation to [facility]4.Fill in the required patrick to create your account. Sign into www.[employer] with your username and password that you created in the above steps to stay up to date. You can then view a summary of results, a summary of your visits, and the ability to download your summaries to your computer or send the information securely to a physician. Remember that your healthcare information is confidential, so carefully consider who you will allow to register on the [facility] Patient Portal for access to your information. You can also access the [facility] Patient Portal on the [employer] barrie. Simply click on Health Records under [employer] and then click on the [facility] logo. HOW TO SAFELY DISPOSE OF PRESCRIPTION MEDICATIONS Please use one of the following methods to safely dispose of your unused medications. 1.Use a drug disposal kit: the drug disposal pouch allows you to safely discard your old and unuseddrugs. Ask your nurse to give you one when you are discharged.2.Visit a local take-back location: Many local pharmacies and police departments have programs that collect old and unwanted prescriptiondrugs. Call your local pharmacy or go to [email or web address] to find one close to you.3.Make use of household items: Use cat litter or old coffee grounds to dispose medications if other options arenot available. Mix your drugs with these household products, seal them in an airtight container andthrow it into the garbage. Call [facility]: [phone] to be sure your drugs can be disposed of in this way. Some medicines may require a different approach.4.Never flush your medications down the toilet. IF YOU HAVE BEEN PRESCRIBED AN OPIOIDS FOR PAIN If you have been prescribed an opioid (such as hydrocodone, oxycodone or morphine), it is critical to understand the possible side effects and risks of opioid pain medications. Even when taken as directed, opioids can have several side effects including: Tolerance, meaning you might need to take more of a medication for the same pain relief. Nausea, vomiting and/or constipation. Sleepiness, dizziness, dry mouth, confusion, depression or itching. Physical dependence, meaning you have withdrawal symptoms when a medication is stopped ? this can develop within a few days. KNOW YOUR RESPONSIBILITIES It is important to know exactly how much and how often to take the opioid pain medications you are prescribed. Never take opioids in higher amounts or more often than prescribed. Do not combine opioids with alcohol or other drugs that cause drowsiness, such as benzodiazepines, also known as benzos,including diazepam and alprazolam, muscle relaxants or sleep aids. Never sell or share prescriptionopioids. This is illegal. Store opioids in a secure place and out of reach of others (including children, family, friends and visitors). The last page(s) of this document has been signed and retained as a CHART COPY Signatures Patient Education Materials Asthma, Acute (Adult) Medication Leaflets prednisone My discharge plan and instructions have been reviewed and explained to me and I,LORENE CROSS understand my current condition and have read and understand these discharge instructions. I have received a written copy of the plan/instructions. If I have questions, I am aware that I should contact my doctor. Patient/Steamfitter Signature: Date/Time: Relationship to Patient: Witness Name/Signature: Date/Time: [facility]09-13-2022 NoteHNO ID: [id number] Author: Noemi Hughes APRN.CNM Service: ? Author Type: Associate Programmer Analyst Type: Progress Notes Filed: 12/22/2021 8:45 AM Note Text: Lorene is a 21 year old who presents for an annual gynecologic exam without complaints. Lexapro for anxiety and depression. Dr. Valencia - counseling center in [place]. This is first PAP. Nexplanon due for removal 03/2022- unsure what type of control she wants to use after removal. Menses: breakthough bleeding Nexplanon. Contraception: Nexplanon HPV vaccine: Yes Last Pap: n/a HPV: N/A History of abnormal pap: No Last mammogram: never Sexually active: Yes- co. Months ago Patient concerns for STD exposure: unsure Pain with intercourse: No Postcoital bleeding: No Exercise: gym Diet: Regular Seatbelt use: Yes OB History T0 L0 SAB0 IAB0 Ectopic0 Multiple0 Live Births0 Gas Welder History LMP: 03/19/2019 (Exact Date), Implant Age at Menarche: Age at First : Age at Menopause: Gas Welder History Comments: Sexual Activity: Yes; Female, Male Contraception: Condom PAST MEDICAL HISTORY Diagnosis Date Cardiac arrest (HCC) 8 yrs old Secondary to status asthmaticus- life flighted to [employer] [facility] Contact dermatitis and other eczema, due to unspecified cause normal color vision Unspecified asthma(493.90) PAST SURGICAL HISTORY Procedure Laterality Date REMOVE TONSILS/ADENOIDS,<12 Y/O 11/12 FAMILY HISTORY Problem Relation Age of Onset Heart Mother Hypertension Mother No Known Problems Father No Known Problems Sister No Known Problems Sister Breast Cancer Maternal Aunt x 2 Asthma Sister No Known Problems Brother No Known Problems Maternal Grandmother SOCIAL HISTORY Social History Tobacco Use Smoking status: Passive Smoke Exposure - Never Smoker Smokeless tobacco: Never Tobacco comments: outdoors mother Vaping Use Vaping Use: Former Substance Use Topics Alcohol use: Yes Comment: Socially Drug use: Not Currently REVIEW OF SYSTEMS Abdomen: No abdominal pain, nausea, vomiting, diarrhea, or constipation. No bloating, early satiety, indigestion, or increased flatulence. Bladder: No dysuria, gross hematuria, urinary frequency, urinary urgency, or incontinence. Breast: No breast lumps, nipple d/c, overlying skin changes, redness or skin retraction. Allergies and current medication updated:Yes EXAM: Ht 5' 4.75 (1.65m) Wt 119 lb (54.0kg) LMP 03/19/2019 BMI 19.95 kg/(m2). GENERAL: pleasant, female in no apparent distress HEENT: Normocephalic, atraumatic, mucus membranes moist, and no lesions NECK: Supple, full range of motion, no adenopathy, and thyroid normal DERMATOLOGY: Normal, without lesions, non-icteric, and non-hirsute BREAST: soft, non-tender, symmetric, no dominant mass, normal nipple-areolar complex, no lymphadenopathy, and no nipple discharge CHEST: Normal inspiratory effort ABDOMEN: soft, non-tender, and no masses PELVIC: external genitalia normal, normal Bartholin's glands, urethra, [place]'s glands, no vulvar lesions, no cervical lesions, good vaginal support, physiologic discharge present, normal appearing perineal body and perianal region BIMANUAL: uterus normal size, shape and consistency, no adnexal masses, non-tender, and no cervical motion tenderness RECTOVAGINAL: deferred. NEURO: alert and oriented x3,exam grossly non-focal EXTREMITIES: normal ASSESSMENT/PLAN: 1) Health maintenance: Pap done with reflex HPV. Nutrition, exercise and routine health maintenance exams reviewed. Vitamin D: ordered- Psychiatrist recommended level to be drawn d/t depression diagnosis 2) Contraception: Nexplanon. Contraceptive options reviewed and information provided. 3) STD screening: Accepted STD check for Gonorrhea and Chlamydia. 4) Follow up 03/2022 for Nexplanon removal [facility]emi [facility]N.[facility] History of Present illness Narrative* Noemi Hughes APRN.KARLENE - 12/22/2021 8:12 AM EDT Lorene is a 21 year old who presents for an annual gynecologic exam without complaints. Lexapro for anxiety and depression. Dr. Valencia - counseling center in [place]. This is first PAP. Nexplanon due for removal 03/2022- unsure what type of control she wants to use after removal. Menses: breakthough bleeding Nexplanon. Contraception: Nexplanon HPV vaccine: Yes Last Pap: n/a HPV: N/A History of abnormal pap: No Last mammogram: never Sexually active: Yes- co. Months ago Patient concerns for STD exposure: unsure Pain with intercourse: No Postcoital bleeding: No Exercise: gym Diet: Regular Seatbelt use: Yes OB History T0 L0 SAB0 IAB0 Ectopic0 Multiple0 Live Births0 Gas [employer] History LMP: 03/19/2019 (Exact Date), Implant Age at Menarche: Age at First : Age at Menopause: Gas Welder History Comments: Sexual Activity: Yes; Female, Male Contraception: Condom PAST MEDICAL HISTORY Diagnosis Date Cardiac arrest (HCC) 8 yrs old Secondary to status asthmaticus- life flighted to [employer] [facility] Contact dermatitis and other eczema, due to unspecified cause normal color vision Unspecified asthma(493.90) PAST SURGICAL HISTORY Procedure Laterality Date REMOVE TONSILS/ADENOIDS,<12 Y/O 11/12 FAMILY HISTORY Problem Relation Age of Onset Heart Mother Hypertension Mother No Known Problems Father No Known Problems Sister No Known Problems Sister Breast Cancer Maternal Aunt x 2 Asthma Sister No Known Problems Brother No Known Problems Maternal Grandmother SOCIAL HISTORY Social History Tobacco Use Smoking status: Passive Smoke Exposure - Never Smoker Smokeless tobacco: Never Tobacco comments: outdoors mother Vaping Use Vaping Use: Former Substance Use Topics Alcohol use: Yes Comment: Socially Drug use: Not Currently REVIEW OF SYSTEMS Abdomen: No abdominal pain, nausea, vomiting, diarrhea, or constipation. No bloating, early satiety, indigestion, or increased flatulence. Bladder: No dysuria, gross hematuria, urinary frequency, urinary urgency, or incontinence. Breast: No breast lumps, nipple d/c, overlying skin changes, redness or skin retraction. Allergies and current medication updated:Yes EXAM: Ht 5' 4.75 (1.65m) Wt 119 lb (54.0kg) LMP 03/19/2019 BMI 19.95 kg/(m^2). GENERAL: pleasant, female in no apparent distress HEENT: Normocephalic, atraumatic, mucus membranes moist, and no lesions NECK: Supple, full range of motion, no adenopathy, and thyroid normal DERMATOLOGY: Normal, without lesions, non-icteric, and non-hirsute BREAST: soft, non-tender, symmetric, no dominant mass, normal nipple-areolar complex, no lymphadenopathy, and no nipple discharge CHEST: Normal inspiratory effort ABDOMEN: soft, non-tender, and no masses PELVIC: external genitalia normal, normal Bartholin's glands, urethra, [place]'s glands, no vulvar lesions, no cervical lesions, good vaginal support, physiologic discharge present, normal appearing perineal body and perianal region BIMANUAL: uterus normal size, shape and consistency, no adnexal masses, non- tender, and no cervicalmotion tenderness RECTOVAGINAL: deferred. NEURO: alert and oriented x3,exam grossly non-focal EXTREMITIES: normal ASSESSMENT/PLAN: 1) Health maintenance: Pap done with reflex HPV. Nutrition, exercise and routine health maintenance exams reviewed. Vitamin D: ordered- Psychiatrist recommended level to be drawn d/t depression diagnosis 2) Contraception: Nexplanon. Contraceptive options reviewed and information provided. 3) STD screening: Accepted STD check for Gonorrhea and Chlamydia. 4) Follow up 03/2022 for Nexplanon removal Noemi Hughes APRN.CNM [facility] History of Past illness Narrative* Problem Noted Date Resolved Date Unspecified asthma(493.90) 01/20/200712/18 documented as of this encounter (statuses as of 12/22/2021) [facility] History of Past illness Narrative* Problem Noted Date Resolved Date Unspecified asthma(493.90) 01/20/200712/18 documented as of this encounter (statuses as of 12/29/2021) [facility] History of Past illness Narrative* Problem Noted Date Diagnosed Date Resolved Date Unspecified asthma(493.90) 01/20/2007 0 12/18/2009 documented as of this encounter (statuses as of 12/30/2022) [facility] History of Past illness Narrative* Problem Noted Date Diagnosed Date Resolved Date Unspecified asthma(493.90) 01/20/2007 0 12/18/2009 documented as of this encounter (statuses as of 02/02/2023) [facility] No data available for this section [facility] Evaluation note* Diagnosis Encounter for gynecological examination (general) (routine) without abnormal findings- Primary Screening for cervical cancer Screening for malignant neoplasm of the cervix Screen for STD (sexually transmitted disease) Screening examination for venereal disease Depression, unspecified depression type documented in this encounter [facility] note* Diagnosis Encounter for gynecological examination (general) (routine) without abnormal findings- Primary documented in this encounter [facility] noteNo assessment information availableWProvidence [facility] Work Phone: Reason for referral (narrative)* Outpatient Procedure (Routine) - Pending Review Specialty Diagnoses / Procedures Referred By Pepper lorenzana Referred To Contact [facility] Diagnoses Encounter for gynecological examination (general) (routine) without abnormal findings Procedures NEXPLANON REMOVAL REMOVAL NON-BIODEGRADABLE DRUG DELIVERY IMPLANT Noemi Hughse APRN.CNM [address] [place] [address] [facility] [address] [place] [id number] Referral ID Status Reason Start Date Expiration Date Visits Requested Visits Authorized [id number] Pending Review Auto-Generat ed Referral 12/22/2021 12/22/2022 1 1 [facility] Summary Purpose Family History No Family History Records FoundNo Family History Records FoundNo Family History Records Found No data available for this section No data available for this section No data available for this section No Family History Records Found No data available for this section No Family History Records Found Advance Directives No Advanced Directives Records Found Advance Directive Response Recorded Date/ Time Living Will No November 01, 2022 12:46am Power of Double Needle Stitcher No November 01 12:46am Chief Complaint and Reason for Visit Chief Complaint suicidal Additional Source Comments INFORMATION SOURCE (unrecogn ized section and content) DATE CREATED AUTHOR 10/04/2020 [facility] DATE CREATED AUTHOR AUTHOR'S ORGANIZ ATION 01/13/2022 [facility] DATE CREATED AUTHOR AUTHOR'S ORGANIZ ATION 11/08/2022 [facility] DATE CREATED AUTHOR AUTHOR'S ORGANIZ ATION 02/26/2023 [facility] ([place] DATE CREATED AUTHOR AUTHOR'S ORGANIZ ATION 03/27/2024 [facility] Source Comments (unrecognize d section and content) In the event this informatio n is protected by the Federal Confidentiality of Alcohol and Drug Abuse Patient Records regulations: The Federal rules restrict any use of the information to criminally investigate or prosecute any alcohol or drug abuse patient.[facility] Hospital[facility] the event this information is protected by the Federal Confidentiality of Alcohol and Drug Abuse Patient Records regulations: The Federal rules restrict any use of the information to criminally investigate or prosecute any alcohol or drug abuse patient.[facility] the event this information is protected by the Federal Confidentiality of Alcohol and Drug Abuse Patient Records regulations: The Federal rules restrict any use of the information to criminally investigate or prosecute any alcohol or drug abuse patient.[facility] Hospital[facility] the event this information is protected by the Federal Confidentiality of Alcohol and Drug Abuse Patient Records regulations: The Federal rules restrict any use of the information to criminally investigate or prosecute any alcohol or drug abuse patient.[facility] Reason for Visit (unrecogniz ed section and content) Reason Comments Yearly Exam Reason Comments nexplanon removal Specialty Diagnoses / Procedures Referred By Pepper lorenzana Referred To Contact [facility] Diagnoses Encounter for gynecological examination (general) (routine) without abnormal findings Encounter for surveillance of implantable subdermal contraceptive Procedures NEXPLANON REMOVAL REMOVAL NON-BIODEGRADABLE DRUG DELIVERY IMPLANT ETONOGESTREL IMPLANT SYSTEM WELLNESS EXAMS EST 18-39 YRS Noemi Hughes APRN.CN [address] [place] [address] [facility] [address] [place] [address] Referral ID Status Reason Start Date Expiration Date V isits Requested Visits Authorized [id number] Closed Auto-Generate d Referral 12/22/2021 04/10/2022 1 1 Reason Onset Date Comments Refill Request 02/01/2023 Care Teams (unrecognized sec tion and content) Retail Wireless Associate Relationship Specialty Start Date End Date Timothy Enciso MD [address] [place] [address] PCP - General Pediatrics 09/26/20 Retail Wireless Associate Relationship Specialty Start Date End Date Timothy Enciso MD [address] [place], [place] [id number] PCP - General Pediatrics 09/26/20 Team Status: Active Member Role Status Dates Dr. Timothy Enciso MD Family Provider Active No Primary Care Physician Primary Care Provider Active Team Status: Inactive Member Role Status Dates Dr. Chung Shanks MD Emergency Provider Active No Primary Care Physician Primary Care Provider Active Care Team (unrecognized sect ion and content) Care Team Personnel Name: FERNIE SAAB, TIMOTHY Yang Member Role: Primary Care Physician Address: Address: [address] [place] [address] Care Team Related Persons Name: CYNTHIA CROSS Kaylene Address: [address] [place] [address] Goals (unrecognized section and content) Goals may be documented in a n alternate section FOR RECORDS PERTAINING TO PATIENTS WHO ARE OR HAVE BEEN ENROLLED IN A CHEMICAL DEPENDENCY/SUBSTANCEABUSE PROGRAM, SOME INFORMATION MAY BE OMITTED. This clinical summary was aggregated from multiple sources. Caution should be exercised in using it in the provision of clinical care. This summary normalizes information from multiple sources, and as a consequence, information in this document may materially change the coding, format and clinical context of patient data. In addition, data may be omitted in some cases. CLINICAL DECISIONS SHOULD BE BASED ON THE PRIMARY CLINICAL RECORDS. [facility] [employer] [facility]. provides no warranty or guarantee of the accuracy or completeness of information in this document.
[2024-11-10 02:44] VITALS: BP 109/68; PULSE 81; RESP 18; O2SAT 100
[2024-11-10 02:59] VITALS: BP 109/68; PULSE 80; RESP 18; TEMP 36.6; O2SAT 100
--- NOTE | 2024-11-10 05:08 | EDS_ITS ---
HPI History of Present Illness Chief Complaint: Allergic Reaction Narrative Narrative: Increasing swelling to the face and eyes this evening after returning from his due. History of environmental allergies and asthma. She reports she did use a new face sunscreen last couple days. No lip or tongue swelling no trouble breathing. No trouble swallowing. Took Benadryl at 7 PM. Is not a diabetic. [facility] similar [facility] Medical History Substance abuse Alcohol abuse Anxiety Depression Asthma Home Medications ?Medication ?Instructions ?Recorded ?Last Taken ?Type prednisone 20 mg tablet 60 mg (3 x 20 mg) PO DAILY # 12 11/10/24 Unknown Rx TABLETS Allergy/AdvReac Type Severity Reaction Status Date / Time No Known Allergies Allergy Verified 11/01/22 00:38 Social History Smoking Status: Current every day smoker tobacco type: e-cigarettes ROS ROS ED Constitutional Constitutional ED: Denies fever(s) ENT ENT ED: Reports other Details: Swelling to face and around eyes. Cardiovascular Cardiovascular: Denies chest pain Respiratory/Chest Respiratory/Chest: Denies cough Gastrointestinal Gastrointestinal: Denies diarrhea or vomiting Musculoskeletal Musculoskeletal: Denies none Integumentary Denies rash or wounds Neurologic Neurologic: Denies weakness EXAM Physical Exam Const Vital Signs: 11/10/24 00:44 11/10/24 02:44 11/10/24 02:59 Temperature 97.9 F 98 F Temperature Source Oral Pulse Rate 110 H 81 80 Respiratory Rate 18 18 18 Blood Pressure 129/78 H 109/68 109/68 Blood Pressure Mean 95 81 81 Pulse Ox 100 100 100 Oxygen Delivery Method Room Air Room Air Positive well nourished and well developed General Appearance ED: well developed and NAD HEENT Reports moist mucous membranes HEENT Narrative: No lip or tongue swelling. normocephalic and atraumatic Eyes Eyes Narrative: Swelling around both eyes. Normal conjunctiva. Neck full ROM Chest Wall Chest: Negative for tenderness Resp normal respiratory effort and normal air movement Effort and Inspection: symmetric chest movement; Negative for respiratory distress Cardio regular rate, regular rhythm and no murmurs Peripheral Pulses: pulses 2+ throughout GI normal to inspection, nondistended, normoactive bowel sounds and non-tender Palpation: Negative for guarding or rebound tenderness present Extremity normal to inspection General Extremety ED: Negative for edema or tenderness General Extremity: Negative for edema Neuro oriented x3 and no sensory deficits noted Sensorium / Orientation: awake and alert Skin no rashes or lesions noted and no wounds MDM MDM MDM Narrative Medical decision making narrative: Interventions / MDM: Differential diagnosis: Environmental allergies, facial swelling Diagnosis considered but do not suspect: No clinical anaphylaxis My EKG interpretation: N/A Imaging independently reviewed and interpreted by myself: N/A External documents reviewed: N/A Test considered but not ordered:N/A ED course: Due to busy department nursing establish IV. With her history a likely environmental causes. She was given IV Benadryl Solu-Medrol Pepcid she was monitored. On reevaluation improving symptoms. Suspect more seasonal allergies more than her sunscreen cream. She has no other areas involved. She will continue Benadryl at home prescription for prednisone to continue for next 4 days. Outpatient follow with her doctor. All questions were answered. Re-evaluation: stable Disposition discussed with patient/family/significant other: Patient and signi ficant other Case discussed with consulting clinician: N/A This note was generated with [employer] dictation software. It may contain incorrect words, spelling, and punctuation that were not noted in checking the note before signing. Discharge Plan Triage Chief Complaint: Allergic Reaction ED Provider: Sam Singleton Dx/Rx/DC Orders Clinical Impression: Facial swelling, Environmental allergies, History of asthma Instructions: ED General Allergic Reactions Prescriptions: New prednisone 20 mg tablet 60 mg PO DAILY Qty: 12 0RF Primary Care Provider: Care Physician,No Primary Referrals: Care Physician,No [facility] 1-2 Weeks Activity Restrictions/Additional Instructions: Facial swelling likely from your environmental exposure. Continue prednisone daily. Continue Benadryl every 6 hours as needed. Print Language: Luxembourger Disposition Disposition: Home, Self Care Discharge Date/Time: 11/10/24 03:02
== END 2024-11-10 03:02 | disposition home or self-care (01) ==
PROVIDERS: Emergency Provider Emergency Medicine; Visit Provider Emergency Medicine
DX: J30.2 Other seasonal allergic rhinitis (principal); F17.290 Nicotine dependence, other tobacco product, uncomplicated
CPT/HCPCS: 96374; 96375; 99283; A4216